=== PATIENT | male | born 1965 | race Caucasian/White ===

== ENCOUNTER 2024-07-12 20:41 | Emergency (ER) | payer OTHER ==
--- OUTSIDE RECORDS SUMMARY | 2024-07-12 20:52 | XMS REPORT | Continuity of Care Document ---
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 Name Role Phone Yvette Morin MD Primary Care Physician [phone] JORDI BURCH Attending Clinician Unavail able JORDI BURCH Attending Clinician Unavail able MAC RODRÍGUEZ Attending Clinician Unavailable YVETTE MORIN Attending Clinician Unavailable YVETTE MORIN Attending Clinician Unavailable LATRELL SHORT Attending Clinician Unavailable LATRELL SHORT Attending Clinician Unavailable Latrell Porras Attending Clinician [phone] Nurse, [facility] Gu Attending Clinician Mac Post MD Attending Clinician [phone] Yvette Morin MD Attending Clinician [phone] ROMAN KATHLEEN Attending Clinician Unavailable ROMAN KATHLEEN Attending Clinician Unavailable Roman Kathleen MD Attending Clinician [phone] 2, [facility] Attending Clinician Unavailable MARTINA SALINAS Attending Clinician Unavail able Jordi Burch MD Attending Clinician [phone] Olga Rojo MD Attending Clinician SUSIE LOZANO Attending Clinician Unavailable Susie Hernandez Attending Clinician [phone] Olga Rojo MD Attending Clinician Jordi Burch MD Attending Clinician [phone] Juanis Estrada LCSW Attending Clinician [phone] Ritesh LABOY, Jf Romano Attending Clinician [phone] JEFFREY VIDAL Attending Clinician Unavailable Alejo LABOY, Xander Attending Clinician [phone] Lab, Ang - Db Attending Clinician Unavailable Cheyanne Blackwood Attending Clinician [phone] Nurse, Josiah Barth Attending Clinician Unavailable Cristina [facility], Sita Mcfadden Attending Clinician Unava ilable Doctor Unassigned, [place] Attending Clinician U marcia Zhao MD, Karen Vaughn Attending Clinician [phone] Darrick LUGON, Daisy Park Attending Clinician Unavaotilia Leon MD, Pat Attending Clinician [phone] PAT LEON Attending Clinician Unavailable Kameron POWELL, Eden Vargas Attending Clinician Unaomi Arteaga RN, Karina Vargas Attending Clinician Unavailab DEEPALI Toro Attending Clinician Unavailable Louise Cedeno Attending Clinician [phone] Marj LABOY, Salvador Jamison Attending Clinician [phone] Deepail Hightower MD Attending Clinician [phone] Justin GRISSOM, Jonathon Johnson Attending Clinician Unavail able Tad [facility], Marleny Raphael Attending Clinician + [phone] Mariola Escobar MA Attending Clinician Dalia KAREN Pires Attending Clinician Unava ilable ZAIRA AHMADI Attending Clinician Unavailab ZAIRA Medley Attending Clinician Unavailab le 2, [facility] Attending Clinician Unavailable Maite Huerta MA Attending Clinician Unava ilable Pob, [facility] Main Attending Clinician UnavailASHLEE Jara Attending Clinician Unavailable Tyshawn Branch DO Attending Clinician [phone] Jf Huertas MD Attending Clinician [phone] MAC RODRÍGUEZ Admitting Clinician Unavailable SALVADOR RILEY Admitting Clinician Unavailoscar Riley MD, Salvador Jamison Admitting Clinician [phone] YVETTE MORIN Admitting Clinician Unavailable KAREN ZHAO Admitting Clinician Jasper ilbreana Payers Payer Name Policy Type Policy Number Effective Date Expirati on Date Source [facility] DUAL ACCESS OPEN PPO [id number] 2021 00:00:[address] [facility] STAR PLUS [id number] 2023 00:00:00 PEREZ D [facility] [id number] 2021 00:00:00 [place] [id number] 2021 00:00:00 Problems Condition Name Condition Details Condition Category Status Onset Date Resolution Date Last Treatment Date Treating Clinician Comments Source Abscess of left arm Abscess of left arm Disease Active 10-28 00:00: 00 [facility] Obesity (BMI 30-39.9) Obesity (BMI 30-39.9) Disease Active 10-28 00:00: 00 [facility] Moderate persistent asthma Moderate persistent asthma Disease Active 2016-07 00:00: 00 [facility] 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 Active 08-07 00:00: 00 [facility] Mild intermitte nt asthma without complicati on Mild intermitte nt asthma without complicati on Disease Active 08-07 00:00: 00 [facility] Seizure disorder Seizure disorder Disease Active 08-07 00:00: 00 [facility] Mental retardatio n Mental retardatio n Disease Active 08-07 00:00: 00 [facility] 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 08-07 00:00: 00 [facility] Myoclonus Myoclonus Disease Active 10-29 00:00: 00 [facility] Tremor, essential Tremor, essential Disease Active 10-29 00:00: 00 [facility] Cerebral palsy Cerebral palsy Disease Active [facility] Parkinson' s disease Parkinson' s disease Disease Active [facility] Seizures Seizures Disease Active [facility] Other closed fracture of proximal end of left fibula, initial encounter Other closed fracture of proximal end of left fibula, initial encounter Diagnosis Active [facility] Sprain of anterior talofibula r ligament of left ankle, initial encounter Sprain of anterior talofibula r ligament of left ankle, initial encounter Diagnosis Active [facility] Pain in joint of left knee Pain in joint of left knee Diagnosis Active [facility] Allergies, Adverse Reactions, Alerts Allergy Name Allergy Type Status Severity Reaction(s) Onset Date Inactive Date Treating Clinician Comments Source Amoxicil karen Propensi ty to adverse reaction s Active Hives 08-07 00:00: 00 [facility] Seafood/ Fish Propensi ty to adverse reaction s Active Hives 08-07 00:00: 00 [facility] AMOXICIL KAREN DRUG INGREDI [facility] SEAFOOD/ FISH Food Active Hives 08-07 00:00: 00 [facility] Peniclli n Adverse Reaction Active Info Not Available [facility] Social History Social Habit Start Date Stop Date Quantity Comments Source History SDOH Alcohol Std Drinks [facility] History SDOH Alcohol Binge [facility] History SDOH Social Connections Get Together [facility] History SDOH Social Connections Spiritism [facility] History SDOH Social Connections Membership [facility] History SDOH Social Connections Meetings [facility] Alcoholic beverage intake 2024-07-07 00:00:00 2024-07-07 00:00:00 0 /d [facility] History of Social function 2024-02-19 00:00:00 2024-02-19 00:00:00 [facility] Alcohol intake 2023-11-01 00:00:00 2023-11-01 00:00:00 0 /d [facility] Tobacco use and exposure 2023-05-20 00:00:00 2023-05-20 00:00:00 Smokeless tobacco non-user [facility] Exposure to SARS-CoV-2 (event) 2022-11-09 00:00:00 2022-11-19 13:02:00 Not sure [facility] History SDOH Alcohol Frequency 2022-10-29 00:00:00 2022-10-29 00:00:00 1 [facility] History SDOH Social Connections Phone 2022-10-29 00:00:00 2022-10-29 00:00:00 5 [facility] History SDOH Social Connections Living 2022-10-29 00:00:00 2022-10-29 00:00:00 7 [facility] History SDOH Physical Activity DPW 2022-10-29 00:00:00 2022-10-29 00:00:00 0 [facility] History SDOH Physical Activity MPS 2022-10-29 00:00:00 2022-10-29 00:00:00 0 [facility] History SDOH Financial 2022-10-29 00:00:00 2022-10-29 00:00:00 5 [facility] History SDOH Food Worry 2022-10-29 00:00:00 2022-10-29 00:00:00 1 [facility] History SDOH Food Scarcity 2022-10-29 00:00:00 2022-10-29 00:00:00 1 [facility] History SDOH Transport Med 2022-10-29 00:00:00 2022-10-29 00:00:00 2 [facility] History SDOH Transport Non-Med 2022-10-29 00:00:00 2022-10-29 00:00:00 2 [facility] History SDOH Housing Unable to Pay 2022-10-29 00:00:00 2022-10-29 00:00:00 2 [facility] History SDOH Housing Places Lived 2022-10-29 00:00:00 2022-10-29 00:00:00 1 [facility] History SDOH Housing Homeless Last Year 2022-10-29 00:00:00 2022-10-29 00:00:00 2 [facility] Sex assigned at 1965 00:00:00 1965 00:00:00 [facility] Smoking Status Start Date Stop Date Source Never smoked tobacco [facility] Medications Ordered Medication Name Filled Medication Name Start Date Stop Date Current Medication? Ordering Clinician Indication Dosage Frequency Signature (SIG) Comments Components Source gadobenate dimeglumine (MULTIHANCE -15 mL) injection 0.2 mL/kg 2023-07 21:45: 00 06-25 21:37 :00 No [id number] .2mL/kg 0.2 mL/kg, Intravenou s, ONCE, 1 dose, On Ashleigh 06/25/24 at 1545, Routine [facility] NITROFURANT OIN&NIT. MACROCRYST 100 mg capsule 2023-07 00:00: 00 Yes [id number] TAKE 1 CAPSULE BY MOUTH IN THE MORNING AND EVENING. DO THIS FOR 7 DAYS [facility] METRONIDAZO LE 0.75 % cream 2023-07 00:00: 00 Yes [id number] APPLY EXTERNALLY TO THE AFFECTED AREA EVERY MORNING [facility] NITROFURANT OIN&NIT. MACROCRYST 100 mg capsule 2023-07 00:00: 00 06-22 00:00 :00 No [id number] TAKE 1 CAPSULE BY MOUTH IN THE MORNING AND EVENING. DO THIS FOR 7 DAYS [facility] Nitrofurant oin&Nit. Macrocryst (MACROBID) 100 mg capsule 2023-07 00:00: 00 06-10 05:59 :00 Yes [id number] 100mg Take 1 capsule by mouth in the morning and 1 capsule in the evening. Do all this for 7 days. [facility] cephALEXin (KEFLEX) capsule 500 mg 2023-07 01:15: 00 06-01 01:10 :00 No 500mg 500 mg, Oral, ONCE, 1 dose, On 05/31/24 at 1915, AUDREY, Reason for Anti-Infec tive: Documented Infection, Documented Infection Site: Urine, Duration of Therapy: Once (ED) [facility] cefpodoxime 200 mg tablet 2023-07 00:00: 00 Yes [id number] 200mg Take 1 tablet by mouth in the morning and 1 tablet in the evening. [facility] ketoconazol e 2 % cream 2023-07 00:00: 00 Yes [id number] APPLY TOPICALLY TO THE AFFECTED AREA(S) EVERY DAY [facility] metroNIDAZO LE 0.75 % cream 2023-07 00:00: 00 06-17 00:00 :00 No [id number] APPLY EXTERNALLY TO THE AFFECTED AREA EVERY MORNING [facility] NYSTATIN 100,000 unit/gram cream 2023-07 00:00: 00 Yes [id number] APPLY TO THE AFFECTED AREA(S) TWICE DAILY [facility] traMADoL 50 mg tablet 2023-07 00:00: 00 Yes [id number] 50mg Take 1 tablet by mouth every 6 (six) hours as needed for Pain (scale 4-6). Indication s: chronic pain [facility] traMADoL 50 mg tablet 2023-07 00:00: 00 04-27 00:00 :00 No [id number] 50mg Take 1 tablet by mouth every 6 (six) hours as needed for Pain (scale 4-6). Indication s: chronic pain [facility] levETIRAcet am 750 mg tablet 03-30 00:00: 00 Yes [id number] TAKE 1 TABLET BY MOUTH EVERY MORNING AND 1 TABLET BY MOUTH EVERY EVENING [facility] carbidopa-l evodopa 50-200 mg SR tablet 03-18 00:00: 00 Yes [id number] TAKE 1 TABLET BY MOUTH IN THE MORNING AND 2 TABLETS IN THE EVENING. [facility] ibuprofen 800 mg tablet 03-13 00:00: 00 Yes [id number] TAKE 1 TABLET BY MOUTH EVERY 6 HOURS NEEDED FOR SEVERE PAIN [facility] albuterol 90 mcg/actuati on inhaler 03-13 00:00: 00 Yes [id number] 2{puff} Inhale 2 Puffs every 6 (six) hours as needed for Shortness of Breath or Wheezing. [facility] albuterol 2.5 mg /3 mL (0.083 %) nebulizer solution 02-27 00:00: 00 Yes [id number] USE 1 AMPULE VIA NEBULIZER EVERY 6 HOURS NEEDED FOR WHEEZING/ SHORTNESS OF BREATH [facility] NITROFURANT OIN&NIT. MACROCRYST 100 mg capsule 02-27 00:00: 00 03-11 00:00 :00 No [id number] TAKE 1 CAPSULE BY MOUTH EVERY MORNING AND EVERY EVENING [facility] Nitrofurant oin&Nit. Macrocryst (MACROBID) 100 mg capsule 02-17 00:00: 00 02-27 00:00 :00 No [id number] 100mg Take 1 capsule by mouth in the morning and 1 capsule in the evening. [facility] traMADoL 50 mg tablet 02-05 00:00: 00 03-13 00:00 :00 No [id number] 50mg Take 1 tablet by mouth every 6 (six) hours as needed for Pain (scale 4-6). Indication s: chronic pain [facility] ibuprofen 800 mg tablet 02-03 00:00: 00 03-13 00:00 :00 No [id number] TAKE 1 TABLET BY MOUTH EVERY 6 HOURS NEEDED FOR SEVERE PAIN [facility] NYSTATIN 100,000 unit/gram cream 01-19 00:00: 00 04-29 00:00 :00 No [id number] APPLY TO THE AFFECTED AREA(S) TWICE DAILY [facility] ketoconazol e 2 % cream 01-16 00:00: 00 05-19 00:00 :00 No [id number] Apply to area(s) daily. [facility] ketoconazol e 2 % shampoo 01-09 00:00: 00 Yes [id number] APPLY TO THE AFFECTED AREA 2-3 TIMES PER WEEK NEEDED FOR ITCHING. WASH OFF WITH WATER AFTER 5 MINUTES [facility] albuterol 90 mcg/actuati on inhaler 01-09 00:00: 00 03-13 00:00 :00 No [id number] 2{puff} Inhale 2 Puffs every 6 (six) hours as needed for Shortness of Breath or Wheezing. [facility] ibuprofen 800 mg tablet 01-09 00:00: 00 02-03 00:00 :00 No [id number] TAKE 1 TABLET BY MOUTH EVERY 8 HOURS NEEDED FOR PAIN [facility] metroNIDAZO LE 1 % GlwP 01-09 00:00: 00 01-16 00:00 :00 No [id number] 1{appli cation} Apply 1 Applicatio n to area(s) in the morning. [facility] ibuprofen 800 mg tablet 01-01 00:00: 00 01-09 00:00 :00 No [id number] TAKE 1 TABLET BY MOUTH EVERY 6 HOURS NEEDED FOR PAIN [facility] carbidopa-l evodopa 50-200 mg SR tablet 12-22 00:00: 00 02-17 00:00 :00 No [id number] TAKE 1 TABLET BY MOUTH EVERY MORNING AND 2 TABLETS BY MOUTH EVERY EVENING [facility] DULoxetine 60 mg capsule 12-12 00:00: 00 Yes [id number] 60mg Take 1 capsule by mouth in the morning. [facility] montelukast 10 mg tablet 12-12 00:00: 00 Yes [id number] 10mg Take 1 tablet by mouth at bedtime. [facility] albuterol 2.5 mg /3 mL (0.083 %) nebulizer solution 12-12 00:00: 00 02-27 00:00 :00 No [id number] 2.5mg Inhale 3 mL every 6 (six) hours as needed for Wheezing or Shortness of Breath. [facility] traMADoL 50 mg tablet 12-08 00:00: 00 01-09 00:00 :00 No [id number] 50mg Take 1 tablet by mouth every 6 (six) hours as needed for Pain (scale 4-6). Indication s: chronic pain [facility] ALBUTEROL 90 mcg/actuati on inhaler 12-01 00:00: 00 01-09 00:00 :00 No [id number] 2{puff} INHALE 2 PUFFS BY MOUTH EVERY 6 HOURS NEEDED FOR SHORTNESS OF BREATH OR WHEEZING [facility] NYSTATIN 100,000 unit/gram cream 11-19 00:00: 01-19 00:00 :00 No [id number] APPLY TO THE AFFECTED AREA TWICE DAILY [facility] albuterol 2.5 mg /3 mL (0.083 %) nebulizer solution 11-17 00:00: 12-12 00:00 :00 No [id number] 2.5mg Inhale 3 mL every 6 (six) hours as needed for Wheezing or Shortness of Breath. [facility] ketoconazol e 2 % shampoo 11-10 00:00: 01-09 00:00 :00 No [id number] APPLY TO THE AFFECTED AREA 2-3 TIMES PER WEEK NEEDED FOR ITCHING. WASH OFF WITH WATER AFTER 5 MINUTES [facility] Nitrofurant oin&Nit. Macrocryst (MACROBID) 100 mg capsule 11-04 00:00: 00 01-09 00:00 :00 No [id number] 100mg Take 1 capsule by mouth in the morning and 1 capsule in the evening. [facility] carbidopa-l evodopa 50-200 mg SR tablet 10-31 00:00: 00 12-22 00:00 :00 No [id number] TAKE 1 TABLET BY MOUTH IN THE MORNING AND 2 TABLETS IN THE EVENING. [facility] sulfamethox azole-trime thoprim (BACTRIM DS) 800-160 mg per tablet 10-31 00:00: 00 11-04 00:00 :00 No [id number] 1{tbl} Take 1 tablet by mouth in the morning and 1 tablet in the evening. [facility] KETOCONAZOL E 2 % shampoo 10-30 00:00: 00 11-10 00:00 :00 No [id number] APPLY TO THE AFFECTED AREA ONCE DAILY NEEDED FOR ITCHING. WASH OFF WITH WATER AFTER 5 MINUTES. [facility] Walker Misc 10-14 00:00: 00 10-31 00:00 :00 No [id number] Use as directed [facility] ketoconazol e 2 % shampoo 10-12 00:00: 00 10-30 00:00 :00 No [id number] APPLY TO THE AFFECTED AREA ONCE DAILY NEEDED FOR ITCHING. WASH OFF WITH WATER AFTER 5 MINUTES [facility] albuterol 90 mcg/actuati on inhaler 10-01 00:00: 00 Yes [id number] 2{puff} Inhale 2 Puffs every 6 (six) hours as needed for Wheezing or Shortness of Breath. [facility] fluticasone propionate 50 mcg/actuati on nasal spray 10-01 00:00: 00 Yes [id number] 2{spray } Use 2 Sprays in each nostril in the morning. [facility] hydrocortis one 2.5 % cream 10-01 00:00: 00 Yes [id number] Apply to affected area(s) 2 (two) times daily. [facility] loratadine 10 mg tablet 10-01 00:00: 00 Yes [id number] 10mg Take 1 tablet by mouth every morning. [facility] ibuprofen 800 mg tablet 10-01 00:00: 00 01-01 00:00 :00 No [id number] TAKE 1 TABLET BY MOUTH EVERY 6 HOURS NEEDED FOR SEVERE PAIN. [facility] montelukast 10 mg tablet 10-01 00:00: 00 12-12 00:00 :00 No [id number] 10mg Take 1 tablet by mouth at bedtime. [facility] DULoxetine 60 mg capsule 10-01 00:00: 00 12-12 00:00 :00 No [id number] 60mg Take 1 capsule by mouth in the morning. [facility] nystatin 100,000 unit/gram cream 10-01 00:00: 00 11-19 00:00 :00 No [id number] Apply to affected area(s) 2 (two) times daily. [facility] albuterol 2.5 mg /3 mL (0.083 %) nebulizer solution 10-01 00:00: 00 11-17 00:00 :00 No [id number] 2.5mg Inhale 3 mL every 6 (six) hours as needed for Wheezing or Shortness of Breath. [facility] carbidopa-l evodopa 50-200 mg SR tablet 09-29 00:00: 00 10-31 00:00 :00 No [id number] TAKE 1 TABLET BY MOUTH IN THE MORNING AND 2 TABLETS IN THE EVENING. [facility] levETIRAcet am 750 mg tablet 09-25 00:00: 00 Yes [id number] 750mg Take 1 tablet by mouth every morning and evening. [facility] ketoconazol e 2 % shampoo 09-24 00:00: 00 10-12 00:00 :00 No [id number] APPLY TO AFFECTED AREA EVERY DAY NEEDED FOR ITCHING [facility] traMADoL 50 mg tablet 3 00:00: 00 12-08 00:00 :00 No [id number] 50mg Take 1 tablet by mouth in the morning and 1 tablet at noon and 1 tablet in the evening. Indication s: chronic pain [facility] nystatin 100,000 unit/gram cream 311 00:00: 00 09-26 00:00 :00 No [id number] APPLY TO AFFECTED AREA TWICE A DAY [facility] ketoconazol e 2 % shampoo 2- 00:00: 00 09-24 00:00 :00 No [id number] APPLY TO THE AFFECTED AREA(S) DAILY NEEDED FOR ITCHING` [facility] carbidopa-l evodopa 50-200 mg SR tablet 2-06 00:00: 00 09-29 00:00 :00 No [id number] TAKE 1 TABLET BY MOUTH EVERY MORNING AND 2 TABLETS EVERY EVENING [facility] loratadine 10 mg tablet 07-24 00:00: 00 09-26 00:00 :00 No [id number] 10mg TAKE 1 TABLET BY MOUTH EVERY MORNING [facility] traMADoL 50 mg tablet 07-15 00:00: 00 09-14 00:00 :00 No [id number] 50mg Take 1 tablet by mouth in the morning and 1 tablet at noon and 1 tablet in the evening. Indication s: chronic pain [facility] ketoconazol e 2 % shampoo 07-09 00:00: 00 08-14 00:00 :00 No [id number] APPLY TO ARE ONCE DAILY NEEDED FOR ITCHING [facility] KETOCONAZOL E 2 % shampoo 2022-07 00:00: 00 Yes [id number] APPLY TO AREA ONCE DAILY NEEDED FOR ITCHING [facility] carbidopa-l evodopa 50-200 mg SR tablet 2022-07 00:00: 00 08-13 00:00 :00 No [id number] TAKE 1 TABLET BY MOUTH EVERY MORNING AND 2 TABLETS IN THE EVENING. [facility] traMADoL 50 mg tablet 2022-07 00:00: 00 07-13 00:00 :00 No [id number] 50mg Take 1 tablet by mouth every 8 (eight) hours as needed (chronic left leg pain). Indication s: chronic pain [facility] ketoconazol e 2 % shampoo 2022-07 00:00: 00 05-27 00:00 :00 No [id number] APPLY TO AREA ONCE DAILY NEEDED FOR ITCHING [facility] KETOCONAZOL E 2 % shampoo 02-15 00:00: 00 05-13 00:00 :00 No [id number] APPLY TO AREA ONCE DAILY NEEDED FOR ITCHING [facility] ibuprofen 800 mg tablet 17 00:00: 00 09-26 00:00 :00 No [id number] TAKE 1 TABLET BY MOUTH EVERY 6 HOURS NEEDED FOR SEVERE PAIN. [facility] montelukast 10 mg tablet 01-21 00:00: 00 09-26 00:00 :00 No [id number] 10mg Take 1 tablet by mouth at bedtime. [facility] DULoxetine 60 mg capsule 01-21 00:00: 00 09-26 00:00 :00 No [id number] 60mg Take 1 capsule by mouth in the morning. [facility] albuterol 2.5 mg /3 mL (0.083 %) nebulizer solution 01-21 00:00: 00 09-26 00:00 :00 No [id number] 2.5mg Inhale 3 mL every 6 (six) hours as needed for Wheezing or Shortness of Breath. [facility] albuterol 90 mcg/actuati on inhaler 01-21 00:00: 00 09-26 00:00 :00 No [id number] 2{puff} Inhale 2 Puffs every 6 (six) hours as needed for Wheezing or Shortness of Breath. [facility] fluticasone propionate 50 mcg/actuati on nasal spray 01-21 00:00: 00 09-26 00:00 :00 No [id number] 2{spray } Use 2 Sprays in each nostril in the morning. [facility] hydrocortis one 2.5 % cream 01-21 00:00: 00 09-26 00:00 :00 No [id number] Apply to affected area(s) 2 (two) times daily. [facility] nystatin 100,000 unit/gram cream 01-21 00:00: 00 09-15 00:00 :00 No [id number] Apply to area(s) 2 (two) times daily. [facility] ketoconazol e 2 % shampoo 01-18 00:00: 00 02-15 00:00 :00 No [id number] Apply to area(s) once daily as needed for Itching. [facility] traMADoL 50 mg tablet 01-07 00:00: 05-13 00:00 :00 No [id number] 50mg Take 1 tablet by mouth every 8 (eight) hours as needed (chronic left leg pain). Indication s: chronic pain [facility] KETOCONAZOL E 2 % shampoo 12-25 00:00: 00 Yes [id number] APPLY TO AREA ONCE DAILY NEEDED FOR ITCHING [facility] Walker Misc 11-19 00:00: 00 Yes [id number] Use as directed [facility] Walker [facility] 11-19 00:00: 00 10-10 00:00 :00 No [id number] Use as directed [facility] ketoconazol e 2 % shampoo 11-19 00:00: 00 12-25 00:00 :00 No [id number] Apply to area(s) once daily as needed for Itching. [facility] carbidopa-l evodopa 50-200 mg SR tablet 11-01 00:00: 00 05-13 00:00 :00 No [id number] Take 1 tablet by mouth in the morning and 2 tablets in the evening. [facility] HYDROcodone -acetaminop hen 5-325 mg tablet 10-30 00:00: 00 12-12 00:00 :00 No [id number] 1{tbl} Take 1 tablet by mouth every 6 (six) hours as needed for Pain (scale 7-10). Indication s: acute pain [facility] clindamycin 300 mg capsule 10-30 00:00: 00 11-10 04:59 :00 No [id number] 600mg Take 2 capsules by mouth in the morning and 2 capsules in the evening. Do all this for 10 days. [facility] lactulose (CEPHULAC) solution 30 mL 10-29 16:30: 00 10-29 16:54 :00 No 30mL 30 mL, Oral, ONCE, 1 dose, On Sat10/29/22 at 1130, Routine [facility] levETIRAcet am (KEPPRA) tablet 750 mg 10-29 14:00: 00 Yes 750mg 750 mg, Oral, QAM+PM, First dose (after last modificati on) on Sat10/29/22 at 0900, Until Discontinu ed, Routine [facility] montelukast (SINGULAIR) tablet 10 mg 10-29 02:00: 00 Yes 10mg 10 mg, Oral, QHS, First dose on 10/28/22 at 2100, Until Discontinu ed, Routine [facility] enoxaparin (LOVENOX) injection 40 mg 10-29 01:00: 00 Yes 40mg 40 mg, Subcutaneo us, DAILY, First dose on Sat10/28/22 at 2000, Until Discontinu ed, [facility]ine [facility] lidocaine 1% (XYLOCAINE) 10 mg/mL (1 %) injection 10 mL 10-28 18:45: 00 10-28 19:19 :00 No 10mL 10 mL, Infiltrati on, ONCE, 1 dose, On 10/28/22 at 1345, AUDREY [facility] loratadine (CLARITIN) tablet 10 mg 10-28 14:00: 00 Yes 10mg 10 mg, Oral, DAILY, First dose on 10/28/22 at 0900, Until Discontinu ed, Routine [facility] fluticasone propionate 50 mcg/actuati on nasal spray 2 [place] 10-28 14:00: 00 Yes 2{spray } 2 [place], Nasal, DAILY, First dose on 10/28/22 at 0900, Until Discontinu ed, Routine [facility] DULoxetine (CYMBALTA) capsule 60 mg 10-28 14:00: 00 Yes 60mg 60 mg, Oral, DAILY, First dose on 10/28/22 at 0900, Until Discontinu ed, Routine [facility] docusate (COLACE) capsule 100 mg 10-28 14:00: 00 Yes 100mg 100 mg, Oral, DAILY, First dose on 10/28/22 at 0900, Until Discontinu ed, Routine [facility] nystatin (MYCOSTATIN ) cream 10-28 13:00: 00 Yes Topical, BID, First dose on 10/28/22 at 0800, Until Discontinu ed, Routine [facility] hydrocortis one 2.5 % cream 10-28 13:00: 00 Yes Topical (Apply To Affected Areas), BID, First dose on 10/28/22 at 0800, Until Discontinu ed, Routine [facility] carbidopa-l evodopa (SINEMET-25 /100) 25-100 mg tablet 1 tablet 10-28 13:00: 00 Yes 1{tbl} 1 tablet, Oral, TID, First dose on 10/28/22 at 0800, Until Discontinu ed [facility] levETIRAcet am (KEPPRA) in NACL (ISO-OS) 1,000 mg/100 mL RTU 10-28 13:00: 00 10-29 01:39 :00 No 1000mg 1,000 mg, IV Piggyback, Q12H, 2 doses, First dose on 10/28/22 at 0800, Last dose on Sat10/28/22 at 2000, Administer over 15 Minutes, 100 mL [facility] vancomycin 1,250 mg in NaCl 0.9% (NS) 250 mL VIAL-MATE IV piggyback 10-28 06:30: 00 11-04 06:29 :00 No 15mg/kg 1,250 mg (rounded from 1,258.5 mg = 15 mg/kg ?83.9 kg), IV Piggyback, Q12H ABX, 14 doses, First dose on 10/28/22 at 0130, Last dose on 11/03/22 at 1330, Administer over 90 Minutes, 250 mL
R sandy for Anti-Infec tive: Documented Infection< br>Documen trace Infection Site: Skin / Soft Tissue
Duration of Therapy: 7 days [facility] traMADoL (ULTRAM) tablet 50 mg 10-28 06:19: 38 Yes [id number] 50mg 50 mg, Oral, Q8HPRN, Starting on Sat10/28/22 at 0119, Until Discontinu ed, Routine, chronic left leg pain [facility] albuterol (VENTOLIN) inhaler 2 Puff 10-28 06:18: 22 Yes 2{puff} 2 Puff, Inhalation , Q6HPRN, Starting on Sat10/28/22 at 0118, Until Discontinu ed, Shortness of Breath, Wheezing, Bronchospa sm, Chest tightness [facility] levoFLOXaci n in D5W (LEVAQUIN) 750 mg/150 mL Piggyback 750 mg 10-28 06:15: 00 11-04 01:59 :00 No 750mg 750 mg, IV Piggyback, at 100 mL/hr Administer over 90 Minutes, QHS, 7 doses, First dose on Sat10/28/22 at 0115, Last dose on Sat11/02/22 at 2100, AUDREY
Re ason for Anti-Infec tive: Documented Infection< br>Documen trace Infection Site: Skin / Soft Tissue
Duration of Therapy: 7 days [facility] NaCl 0.9% (NS) IV infusion 1,000 mL 10-28 06:00: 00 10-29 18:21 :52 No 1000mL at 100 mL/hr, IV Infusion, CONTINUOUS , Starting on Sat10/28/22 at 0100, Until Sat10/29/22 at 1321, Routine [facility] ondansetron (ZOFRAN (PF)) injection 4 mg 10-28 05:52: 06 Yes 4mg 4 mg, Slow IV Push, Q6HPRN, Starting on Sat10/28/22 at 0052, Until Discontinu ed, Routine, Nausea and Vomiting (N/V) [facility] HYDROcodone -acetaminop hen (NORCO 5) 5-325 mg tablet 1 tablet 10-28 05:52: 01 10-30 05:51 :01 No 1{tbl} 1 tablet, Oral, Q6HPRN, Starting on Sat10/28/22 at 0052, Until Sat10/30/22 at 0051, Routine, Pain (scale 4-6) [facility] acetaminoph en (TYLENOL) tablet 650 mg 10-28 05:51: 58 Yes 650mg 650 mg, Oral, Q6HPRN, Starting on 10/28/22 at 0051, Until Discontinu ed, Routine, Pain (scale 1-3) [facility] iopamidol (ISOVUE 370-500 mL) injection 100 mL 10-28 05:30: 00 10-28 05:30 :00 No [id number] 100mL 100 mL, Intravenou s, ONCE, 1 dose, On [place] 10/28/22 at 0030, Routine [facility] cefTRIAXone (ROCEPHIN) 1,000 mg in NaCl 0.9% (NS) 100 mL MINI-BAG 10-28 04:00: 00 10-28 04:32 :00 No 1000mg 1,000 mg, IV Piggyback, ONCE, 1 dose, On 10/27/22 at 2300, Administer over 30 Minutes, 100 mL
Reas on for Anti-Infec tive: Documented Infection< br>Documen trace Infection Site: Skin / Soft Tissue
Duration of Therapy: Other (see Comments) [facility] ondansetron (ZOFRAN (PF)) injection 4 mg 10-28 03:45: 00 10-28 04:02 :00 No 4mg 4 mg, Slow IV Push, ONCE, 1 dose, On [facility] 10/27/22 at 2245, AUDREY [facility] morpHINE (4 mg/mL) injection 4 mg 10-28 03:45: 00 10-28 04:00 :00 No 4mg 4 mg, Slow IV Push, ONCE, 1 dose, On [facility] 10/27/22 at 2245, STAT [facility] LEVETIRACET AM 750 mg tablet 3- 00:00: 00 09-25 00:00 :00 No [id number] TAKE 1 TABLET BY MOUTH IN THE MORNING AND IN THE EVENING [facility] CARBIDOPA-L EVODOPA 50-200 mg SR tablet 3- 00:00: 00 10-31 00:00 :00 No [id number] TAKE 1 TABLET BY MOUTH IN THE MORNING AND 2 TABLETS IN THE EVENING [facility] KETOCONAZOL E 2 % shampoo 2-14 00:00: 00 11-19 00:00 :00 No [id number] APPLY TO AREA(S) ONCE DAILY NEEDED FOR ITCHING. [facility] loratadine 10 mg tablet 1-13 00:00: 00 07-24 00:00 :00 No [id number] 10mg Take 1 tablet by mouth in the morning. [facility] levETIRAcet am 750 mg tablet 2021-07- 00:00: 00 09-05 00:00 :00 No [id number] 750mg Take 1 tablet by mouth in the morning and 1 tablet in the evening. [facility] carbidopa-l evodopa 50-200 mg SR tablet 2021-07- 00:00: 00 09-05 00:00 :00 No [id number] Take 1 tablet by mouth in the morning and 2 tablets in the evening. [facility] traMADoL 50 mg tablet 2021-07- 00:00: 00 11-19 00:00 :00 No [id number] 50mg Take 1 tablet by mouth every 8 (eight) hours as needed (chronic left leg pain). Indication s: chronic pain [facility] DULoxetine 60 mg capsule 2021-07- 00:00: 00 01-21 00:00 :00 No [id number] 60mg Take 1 capsule by mouth in the morning. [facility] ketoconazol e 2 % shampoo 2021-07 0-14 00:00: 00 08-21 00:00 :00 No [id number] Apply to area(s) once daily as needed for Itching. [facility] traMADoL 50 mg tablet 2021-07 0-14 00:00: 00 06-21 00:00 :00 No [id number] 50mg Take 1 tablet by mouth every 8 (eight) hours as needed (chronic left leg pain). Indication s: chronic pain [facility] carbidopa-l evodopa 50-200 mg SR tablet 2021-07 0-05 00:00: 00 06-22 00:00 :00 No [id number] Take 1 tablet by mouth in the morning and 2 tablets in the evening. [facility] carbidopa-l evodopa 50-200 mg SR tablet 8 00:00: 00 Yes [id number] Take 1 tablet by mouth in the morning and 2 tablets in the evening. [facility] levETIRAcet am 750 mg tablet 02-12 00:00: 00 06-22 00:00 :00 No [id number] 750mg Take 1 tablet by mouth in the morning and 1 tablet in the evening. [facility] ibuprofen 800 mg tablet 01-15 00:00: 00 01-21 00:00 :00 No [id number] TAKE 1 TABLET BY MOUTH EVERY 6 HOURS NEEDED FOR SEVERE PAIN. [facility] montelukast 10 mg tablet 01-15 00:00: 00 01-21 00:00 :00 No [id number] 10mg Take 1 tablet by mouth at bedtime. [facility] albuterol 2.5 mg /3 mL (0.083 %) nebulizer solution 01-15 00:00: 00 01-21 00:00 :00 No [id number] 2.5mg Inhale 3 mL every 6 (six) hours as needed for Wheezing or Shortness of Breath. [facility] albuterol 90 mcg/actuati on inhaler 01-15 00:00: 00 01-21 00:00 :00 No [id number] 2{puff} Inhale 2 Puffs every 6 (six) hours as needed for Wheezing or Shortness of Breath. [facility] fluticasone propionate 50 mcg/actuati on nasal spray 01-15 00:00: 00 01-21 00:00 :00 No [id number] 2{spray } Use 2 Sprays in each nostril in the morning. [facility] hydrocortis one 2.5 % cream 01-15 00:00: 00 01-21 00:00 :00 No [id number] Apply to affected area(s) 2 (two) times daily. [facility] nystatin 100,000 unit/gram cream 01-15 00:00: 00 01-21 00:00 :00 No Apply to area(s) 2 (two) times daily. [facility] loratadine 10 mg tablet 01-15 00:00: 00 07-20 00:00 :00 No [id number] 10mg Take 1 tablet by mouth in the morning. [facility] DULoxetine 60 mg capsule 01-15 00:00: 00 05-09 00:00 :00 No [id number] 60mg Take 1 capsule by mouth in the morning. [facility] traMADoL 50 mg tablet 01-15 00:00: 00 04-20 00:00 :00 No [id number] 50mg Take 1 tablet by mouth every 8 (eight) hours as needed (chronic left leg pain). Indication s: chronic pain [facility] ketoconazol e 2 % shampoo 01-15 00:00: 00 04-20 00:00 :00 No [id number] Apply to area(s) once daily as needed for Itching. [facility] carbidopa-l evodopa 50-200 mg SR tablet 07-19 00:00: 00 02-12 00:00 :00 No [id number] Take 1 tablet by mouth in the morning and 2 tablets in the evening. [facility] levETIRAcet am 500 mg tablet 2020-07 00:00: 00 02-12 00:00 :00 No [id number] 500mg Take 1 tablet by mouth 2 (two) times daily. [facility] IBUPROFEN 800 mg tablet 2020-07 00:00: 01-15 00:00 :00 No [id number] TAKE 1 TABLET BY MOUTH EVERY 6 HOURS NEEDED FOR SEVERE PAIN. [facility] traMADoL 50 mg tablet 8-17 00:00: 00 05-29 00:00 :00 No [id number] 50mg Take 1 tablet by mouth every 8 (eight) hours as needed (chronic left leg pain). Indication s: chronic pain [facility] HYDROCORTIS ONE 2.5 % cream 6-04 00:00: 00 11-24 00:00 :00 No [id number] APPLY TO THE AFFECTED AREA TWICE DAILY [facility] montelukast 10 mg tablet 11-28 00:00: 00 11-23 00:00 :00 No [id number] 10mg Take 1 tablet by mouth at bedtime. [facility] ALBUTEROL 90 mcg/actuati on inhaler 4-09 00:00: 00 01-15 00:00 :00 No [id number] INHALE 2 PUFFS BY MOUTH EVERY 6 HOURS NEEDED FOR WHEEZING OR SHORTNESS OF BREATH [facility] fluticasone propionate 50 mcg/actuati on nasal spray 08-26 00:00: 00 11-28 00:00 :00 No [id number] 2{spray } Use 2 Sprays in each nostril daily. [facility] levETIRAcet am 500 mg tablet 2019-07 00:00: 06-20 00:00 :00 No [id number] 500mg Take 1 tablet by mouth 2 (two) times daily. [facility] carbidopa-l evodopa 50-200 mg SR tablet 2019-07 00:00: 00 06-20 00:00 :00 No [id number] 1{tbl} Take 1 tablet by mouth 2 (two) times daily. [facility] Ibuprofen Ibuprofen 3- 00:00: 00 Yes Pranay Love 1 tablet po prn pain [facility] albuterol 2.5 mg /3 mL (0.083 %) nebulizer solution 2017-07 2-05 00:00: 00 05-20 00:00 :00 No [id number] 2.5mg Inhale 3 mL every 6 (six) hours as needed for Wheezing or Shortness of Breath. [facility] Albuterol Sulfate Albuterol Sulfate Yes Pranay Love not defined [facility] Montelukast Sodium Montelukast Sodium Yes Pranay Love TK 1 T PO QHS [facility] Fluticasone Propionate Fluticasone Propionate Yes Pranay Love USE 2 SPRAYS IN EACH NOSTRIL QD [facility] Levetiracet am Levetiracet am Yes Pranay Love TK 1 T PO BID [facility] Carbidopa-L evodopa ER Carbidopa-L evodopa ER Yes Pranay Love TK 1 T PO QAM AND 2 TS PO QPM [facility] Ibuprofen Ibuprofen Yes Pranay Love TK 1 T PO Q 6 H PRN FOR PAIN [facility] Hydrocortis one Hydrocortis one Yes Pranay Love APPLY TO THE AFFECTED AREA BID PRN FOR FACIAL RASH [facility] Immunizations Ordered Immunization Name Filled Immunization Name Date Status Comments Source Influenza Virus Vaccine Quad IM, Preserv and ABX Free 6 MO-64 YRS (FLUCELVAX) 2023-05-21 00:00:00 Completed [facility] SARS-COV-2 COVID-19 PFIZER VACCINE 2021-07-26 00:00:00 Completed Zoster Vaccine Recombinant 2021-04-18 00:00:00 Completed [facility] Influenza Virus Vaccine Quad .5 mL IM 6+ MO (FLUZONE/FLULAVAL/F LUARIX) 2021-04-18 00:00:00 Completed SARS-COV-2 COVID-19 PFIZER VACCINE 2020-10-17 00:00:00 Completed [facility] SARS-COV-2 COVID-19 PFIZER VACCINE 2020-10-17 00:00:00 Completed [facility] SARS-COV-2 COVID-19 PFIZER VACCINE 2020-10-17 00:00:00 Completed [facility] SARS-COV-2 COVID-19 PFIZER VACCINE 2020-10-17 00:00:00 Completed [facility] SARS-COV-2 COVID-19 PFIZER VACCINE 2020-10-17 00:00:00 Completed [facility] SARS-COV-2 COVID-19 PFIZER VACCINE 2020-10-17 00:00:00 Completed [facility] SARS-COV-2 COVID-19 PFIZER VACCINE 2020-10-17 00:00:00 Completed [facility] SARS-COV-2 COVID-19 PFIZER VACCINE 2020-10-17 00:00:00 Completed [facility] SARS-COV-2 COVID-19 PFIZER VACCINE 2020-10-17 00:00:00 Completed [facility] SARS-COV-2 COVID-19 PFIZER VACCINE 2020-10-17 00:00:00 Completed [facility] SARS-COV-2 COVID-19 PFIZER VACCINE 2020-10-17 00:00:00 Completed [facility] SARS-COV-2 COVID-19 PFIZER VACCINE 2020-10-17 00:00:00 Completed [facility] SARS-COV-2 COVID-19 PFIZER VACCINE 2020-10-17 00:00:00 Completed [facility] SARS-COV-2 COVID-19 PFIZER VACCINE 2020-10-17 00:00:00 Completed [facility] SARS-COV-2 COVID-19 PFIZER VACCINE 2020-10-17 00:00:00 Completed [facility] SARS-COV-2 COVID-19 PFIZER VACCINE 2020-10-17 00:00:00 Completed [facility] SARS-COV-2 COVID-19 PFIZER VACCINE 2020-10-17 00:00:00 Completed [facility] SARS-COV-2 COVID-19 PFIZER VACCINE 2020-10-17 00:00:00 Completed [facility] SARS-COV-2 COVID-19 PFIZER VACCINE 2020-10-17 00:00:00 Completed [facility] SARS-COV-2 COVID-19 PFIZER VACCINE 2020-10-17 00:00:00 Completed [facility] SARS-COV-2 COVID-19 PFIZER VACCINE 2020-10-17 00:00:00 Completed [facility] SARS-COV-2 COVID-19 PFIZER VACCINE 2020-10-17 00:00:00 Completed [facility] SARS-COV-2 COVID-19 PFIZER VACCINE 2020-10-17 00:00:00 Completed [facility] SARS-COV-2 COVID-19 PFIZER VACCINE 2020-10-17 00:00:00 Completed [facility] SARS-COV-2 COVID-19 PFIZER VACCINE 2020-10-17 00:00:00 Completed [facility] SARS-COV-2 COVID-19 PFIZER VACCINE 2020-10-17 00:00:00 Completed [facility] SARS-COV-2 COVID-19 PFIZER VACCINE 2020-10-17 00:00:00 Completed [facility] SARS-COV-2 COVID-19 PFIZER VACCINE 2020-10-17 00:00:00 Completed [facility] SARS-COV-2 COVID-19 PFIZER VACCINE 2020-10-17 00:00:00 Completed [facility] SARS-COV-2 COVID-19 PFIZER VACCINE 2020-10-17 00:00:00 Completed [facility] SARS-COV-2 COVID-19 PFIZER VACCINE 2020-10-17 00:00:00 Completed [facility] SARS-COV-2 COVID-19 PFIZER VACCINE 2020-10-17 00:00:00 Completed [facility] SARS-COV-2 COVID-19 PFIZER VACCINE 2020-10-17 00:00:00 Completed [facility] SARS-COV-2 COVID-19 PFIZER VACCINE 2020-10-17 00:00:00 Completed [facility] SARS-COV-2 COVID-19 PFIZER VACCINE 2020-10-17 00:00:00 Completed [facility] SARS-COV-2 COVID-19 PFIZER VACCINE 2020-10-17 00:00:00 Completed [facility] SARS-COV-2 COVID-19 PFIZER VACCINE 2020-10-17 00:00:00 Completed [facility] SARS-COV-2 COVID-19 PFIZER VACCINE 2020-10-17 00:00:00 Completed [facility] SARS-COV-2 COVID-19 PFIZER VACCINE 2020-10-17 00:00:00 Completed [facility] SARS-COV-2 COVID-19 PFIZER VACCINE 2020-10-17 00:00:00 Completed SARS-COV-2 COVID-19 PFIZER VACCINE 2020-09-26 00:00:00 Completed [facility] SARS-COV-2 COVID-19 PFIZER VACCINE 2020-09-26 00:00:00 Completed [facility] SARS-COV-2 COVID-19 PFIZER VACCINE 2020-09-26 00:00:00 Completed [facility] SARS-COV-2 COVID-19 PFIZER VACCINE 2020-09-26 00:00:00 Completed [facility] SARS-COV-2 COVID-19 PFIZER VACCINE 2020-09-26 00:00:00 Completed [facility] SARS-COV-2 COVID-19 PFIZER VACCINE 2020-09-26 00:00:00 Completed [facility] SARS-COV-2 COVID-19 PFIZER VACCINE 2020-09-26 00:00:00 Completed [facility] SARS-COV-2 COVID-19 PFIZER VACCINE 2020-09-26 00:00:00 Completed [facility] SARS-COV-2 COVID-19 PFIZER VACCINE 2020-09-26 00:00:00 Completed [facility] SARS-COV-2 COVID-19 PFIZER VACCINE 2020-09-26 00:00:00 Completed [facility] SARS-COV-2 COVID-19 PFIZER VACCINE 2020-09-26 00:00:00 Completed [facility] SARS-COV-2 COVID-19 PFIZER VACCINE 2020-09-26 00:00:00 Completed [facility] SARS-COV-2 COVID-19 PFIZER VACCINE 2020-09-26 00:00:00 Completed [facility] SARS-COV-2 COVID-19 PFIZER VACCINE 2020-09-26 00:00:00 Completed [facility] SARS-COV-2 COVID-19 PFIZER VACCINE 2020-09-26 00:00:00 Completed [facility] SARS-COV-2 COVID-19 PFIZER VACCINE 2020-09-26 00:00:00 Completed [facility] SARS-COV-2 COVID-19 PFIZER VACCINE 2020-09-26 00:00:00 Completed [facility] SARS-COV-2 COVID-19 PFIZER VACCINE 2020-09-26 00:00:00 Completed [facility] SARS-COV-2 COVID-19 PFIZER VACCINE 2020-09-26 00:00:00 Completed [facility] SARS-COV-2 COVID-19 PFIZER VACCINE 2020-09-26 00:00:00 Completed [facility] SARS-COV-2 COVID-19 PFIZER VACCINE 2020-09-26 00:00:00 Completed [facility] SARS-COV-2 COVID-19 PFIZER VACCINE 2020-09-26 00:00:00 Completed [facility] SARS-COV-2 COVID-19 PFIZER VACCINE 2020-09-26 00:00:00 Completed [facility] SARS-COV-2 COVID-19 PFIZER VACCINE 2020-09-26 00:00:00 Completed [facility] SARS-COV-2 COVID-19 PFIZER VACCINE 2020-09-26 00:00:00 Completed [facility] SARS-COV-2 COVID-19 PFIZER VACCINE 2020-09-26 00:00:00 Completed [facility] SARS-COV-2 COVID-19 PFIZER VACCINE 2020-09-26 00:00:00 Completed [facility] SARS-COV-2 COVID-19 PFIZER VACCINE 2020-09-26 00:00:00 Completed [facility] SARS-COV-2 COVID-19 PFIZER VACCINE 2020-09-26 00:00:00 Completed [facility] SARS-COV-2 COVID-19 PFIZER VACCINE 2020-09-26 00:00:00 Completed [facility] SARS-COV-2 COVID-19 PFIZER VACCINE 2020-09-26 00:00:00 Completed [facility] SARS-COV-2 COVID-19 PFIZER VACCINE 2020-09-26 00:00:00 Completed [facility] SARS-COV-2 COVID-19 PFIZER VACCINE 2020-09-26 00:00:00 Completed [facility] SARS-COV-2 COVID-19 PFIZER VACCINE 2020-09-26 00:00:00 Completed [facility] SARS-COV-2 COVID-19 PFIZER VACCINE 2020-09-26 00:00:00 Completed [facility] SARS-COV-2 COVID-19 PFIZER VACCINE 2020-09-26 00:00:00 Completed [facility] SARS-COV-2 COVID-19 PFIZER VACCINE 2020-09-26 00:00:00 Completed [facility] SARS-COV-2 COVID-19 PFIZER VACCINE 2020-09-26 00:00:00 Completed [facility] SARS-COV-2 COVID-19 PFIZER VACCINE 2020-09-26 00:00:00 Completed [facility] SARS-COV-2 COVID-19 PFIZER VACCINE 2020-09-26 00:00:00 Completed [facility] Influenza Virus Vaccine Quad .5 mL IM 6+ MO 2020-06-13 00:00:00 Completed [facility] Influenza Virus Vaccine Quad .5 mL IM 6+ MO 2020-06-13 00:00:00 Completed [facility] Influenza Virus Vaccine Quad .5 mL IM 6+ MO 2020-06-13 00:00:00 Completed [facility] Influenza Virus Vaccine Quad .5 mL IM 6+ MO 2020-06-13 00:00:00 Completed [facility] Influenza Virus Vaccine Quad .5 mL IM 6+ MO 2020-06-13 00:00:00 Completed [facility] Influenza Virus Vaccine Quad .5 mL IM 6+ MO 2020-06-13 00:00:00 Completed [facility] Influenza Virus Vaccine Quad .5 mL IM 6+ MO 2020-06-13 00:00:00 Completed [facility] Influenza Virus Vaccine Quad .5 mL IM + MO 2020-06-13 00:00:00 Completed [facility] Influenza Virus Vaccine Quad .5 mL IM 6+ MO 2020-06-13 00:00:00 Completed [facility] Influenza Virus Vaccine Quad .5 mL IM 6+ MO 2020-06-13 00:00:00 Completed [facility] Influenza Virus Vaccine Quad .5 mL IM 6+ MO 2020-06-13 00:00:00 Completed [facility] Influenza Virus Vaccine Quad .5 mL IM 6+ MO 2020-06-13 00:00:00 Completed [facility] Influenza Virus Vaccine Quad .5 mL IM 6+ MO 2020-06-13 00:00:00 Completed [facility] Influenza Virus Vaccine Quad .5 mL IM 6+ MO 2020-06-13 00:00:00 Completed [facility] Influenza Virus Vaccine Quad .5 mL IM 6+ MO 2020-06-13 00:00:00 Completed [facility] Influenza Virus Vaccine Quad .5 mL IM 6+ MO 2020-06-13 00:00:00 [facility] [facility] Influenza Virus Vaccine Quad .5 mL IM 6+ MO 2020-06-13 00:00:00 Completed [facility] Influenza Virus Vaccine Quad .5 mL IM 6+ MO 2020-06-13 00:00:00 Completed [facility] Influenza Virus Vaccine Quad .5 mL IM 6+ MO 2020-06-13 00:00:00 Completed [facility] Influenza Virus Vaccine Quad .5 mL IM + MO 2020-06-13 00:00:00 Completed [facility] Influenza Virus Vaccine Quad .5 mL IM 6+ MO 2020-06-13 00:00:00 Completed [facility] Influenza Virus Vaccine Quad .5 mL IM + MO 2020-06-13 00:00:00 Completed [facility] Influenza Virus Vaccine Quad .5 mL IM 2020-06-13 00:00:00 Completed [facility] Influenza Virus Vaccine Quad .5 mL IM + 2020-06-13 00:00:00 Completed [facility] Influenza Virus Vaccine Quad .5 mL IM 2020-06-13 00:00:00 Completed [facility] Influenza Virus Vaccine Quad .5 mL IM 2020-06-13 00:00:00 Completed [facility] Influenza Virus Vaccine Quad .5 mL IM 2020-06-13 00:00:00 Completed [facility] Influenza Virus Vaccine Quad .5 mL IM 6+ 2020-06-13 00:00:00 Completed [facility] Influenza Virus Vaccine Quad .5 mL IM + 2020-06-13 00:00:00 Completed [facility] Influenza Virus Vaccine Quad .5 mL IM + 2020-06-13 00:00:00 Completed [facility] Influenza Virus Vaccine Quad .5 mL IM 6+ MO 2020-06-13 00:00:00 Completed [facility] Influenza Virus Vaccine Quad .5 mL IM 6+ MO 2020-06-13 00:00:00 Completed [facility] Influenza Virus Vaccine Quad .5 mL IM 6+ MO 2020-06-13 00:00:00 Completed [facility] Influenza Virus Vaccine Quad .5 mL IM 6+ MO 2020-06-13 00:00:00 Completed [facility] Influenza Virus Vaccine Quad .5 mL IM 6+ MO 2020-06-13 00:00:00 Completed [facility] Influenza Virus Vaccine Quad .5 mL IM 6+ MO 2020-06-13 00:00:00 Completed [facility] Influenza Virus Vaccine Quad .5 mL IM 6+ MO 2020-06-13 00:00:00 Completed [facility] Influenza Virus Vaccine Quad .5 mL IM 6+ MO 2020-06-13 00:00:00 Completed [facility] Influenza Virus Vaccine Quad .5 mL IM 6+ MO 2020-06-13 00:00:00 Completed [facility] Influenza Virus Vaccine Quad .5 mL IM 6+ MO (FLUZONE/FLULAVAL/F LUARIX) 2020-06-13 00:00:00 Completed [facility] Influenza Virus Vaccine 2019-06-05 00:00:00 Completed [facility] Influenza Virus Vaccine 2019-06-05 00:00:00 Completed [facility] Influenza Virus Vaccine 2019-06-05 00:00:00 Completed [facility] Influenza Virus Vaccine 2019-06-05 00:00:00 Completed [facility] Influenza Virus Vaccine 2019-06-05 00:00:00 Completed [facility] Influenza Virus Vaccine 2019-06-05 00:00:00 Completed [facility] Influenza Virus Vaccine 2019-06-05 00:00:00 Completed [facility] Influenza Virus Vaccine 2019-06-05 00:00:00 Completed [facility] Influenza Virus Vaccine 2019-06-05 00:00:00 Completed [facility] Influenza Virus Vaccine 2019-06-05 00:00:00 Completed [facility] Influenza Virus Vaccine 2019-06-05 00:00:00 Completed [facility] Influenza Virus Vaccine 2019-06-05 00:00:00 Completed [facility] Influenza Virus Vaccine 2019-06-05 00:00:00 Completed [facility] Influenza Virus Vaccine 2019-06-05 00:00:00 Completed [facility] Influenza Virus Vaccine 2019-06-05 00:00:00 Completed [facility] Influenza Virus Vaccine 2019-06-05 00:00:00 Completed [facility] Influenza Virus Vaccine 2019-06-05 00:00:00 Completed [facility] Influenza Virus Vaccine 2019-06-05 00:00:00 Completed [facility] Influenza Virus Vaccine 2019-06-05 00:00:00 Completed [facility] Influenza Virus Vaccine 2019-06-05 00:00:00 Completed [facility] Influenza Virus Vaccine 2019-06-05 00:00:00 Completed [facility] Influenza Virus Vaccine 2019-06-05 00:00:00 Completed [facility] Influenza Virus Vaccine 2019-06-05 00:00:00 Completed [facility] Influenza Virus Vaccine 2019-06-05 00:00:00 Completed [facility] Influenza Virus Vaccine 2019-06-05 00:00:00 Completed [facility] Influenza Virus Vaccine 2019-06-05 00:00:00 Completed [facility] Influenza Virus Vaccine 2019-06-05 00:00:00 Completed [facility] Influenza Virus Vaccine 2019-06-05 00:00:00 Completed [facility] Influenza Virus Vaccine 2019-06-05 00:00:00 Completed [facility] Influenza Virus Vaccine 2019-06-05 00:00:00 Completed [facility] Influenza Virus Vaccine 2019-06-05 00:00:00 Completed [facility] Influenza Virus Vaccine 2019-06-05 00:00:00 Completed [facility] Influenza Virus Vaccine 2019-06-05 00:00:00 Completed [facility] Influenza Virus Vaccine 2019-06-05 00:00:00 Completed [facility] Influenza Virus Vaccine 2019-06-05 00:00:00 Completed [facility] Influenza Virus Vaccine 2019-06-05 00:00:00 Completed [facility] Influenza Virus Vaccine 2019-06-05 00:00:00 Completed [facility] Influenza Virus Vaccine 2019-06-05 00:00:00 Completed [facility] Influenza Virus Vaccine 2019-06-05 00:00:00 Completed [facility] Influenza Virus Vaccine 2019-06-05 00:00:00 Completed Zoster Vaccine Recombinant 2019-05-28 00:00:00 Completed [facility] Zoster Vaccine Recombinant 2019-05-28 00:00:00 Completed [facility] Zoster Vaccine Recombinant 2019-05-28 00:00:00 Completed [facility] Zoster Vaccine Recombinant 2019-05-28 00:00:00 Completed [facility] Zoster Vaccine Recombinant 2019-05-28 00:00:00 Completed [facility] Zoster Vaccine Recombinant 2019-05-28 00:00:00 Completed [facility] Zoster Vaccine Recombinant 2019-05-28 00:00:00 Completed [facility] Zoster Vaccine Recombinant 2019-05-28 00:00:00 Completed [facility] Zoster Vaccine Recombinant 2019-05-28 00:00:00 Completed [facility] Zoster Vaccine Recombinant 2019-05-28 00:00:00 Completed [facility] Zoster Vaccine Recombinant 2019-05-28 00:00:00 Completed [facility] Zoster Vaccine Recombinant 2019-05-28 00:00:00 Completed [facility] Zoster Vaccine Recombinant 2019-05-28 00:00:00 Completed [facility] Zoster Vaccine Recombinant 2019-05-28 00:00:00 Completed [facility] Zoster Vaccine Recombinant 2019-05-28 00:00:00 Completed [facility] Zoster Vaccine Recombinant 2019-05-28 00:00:00 Completed [facility] Zoster Vaccine Recombinant 2019-05-28 00:00:00 Completed [facility] Zoster Vaccine Recombinant 2019-05-28 00:00:00 Completed [facility] Zoster Vaccine Recombinant 2019-05-28 00:00:00 Completed [facility] Zoster Vaccine Recombinant 2019-05-28 00:00:00 Completed [facility] Zoster Vaccine Recombinant 2019-05-28 00:00:00 Completed [facility] Zoster Vaccine Recombinant 2019-05-28 00:00:00 Completed [facility] Zoster Vaccine Recombinant 2019-05-28 00:00:00 Completed [facility] Zoster Vaccine Recombinant 2019-05-28 00:00:00 Completed [facility] Zoster Vaccine Recombinant 2019-05-28 00:00:00 Completed [facility] Zoster Vaccine Recombinant 2019-05-28 00:00:00 Completed [facility] Zoster Vaccine Recombinant 2019-05-28 00:00:00 Completed [facility] Zoster Vaccine Recombinant 2019-05-28 00:00:00 Completed [facility] Zoster Vaccine Recombinant 2019-05-28 00:00:00 Completed [facility] Zoster Vaccine Recombinant 2019-05-28 00:00:00 Completed [facility] Zoster Vaccine Recombinant 2019-05-28 00:00:00 Completed [facility] Zoster Vaccine Recombinant 2019-05-28 00:00:00 Completed [facility] Zoster Vaccine Recombinant 2019-05-28 00:00:00 Completed [facility] Zoster Vaccine Recombinant 2019-05-28 00:00:00 Completed [facility] Zoster Vaccine Recombinant 2019-05-28 00:00:00 Completed [facility] Zoster Vaccine Recombinant 2019-05-28 00:00:00 Completed [facility] Zoster Vaccine Recombinant 2019-05-28 00:00:00 Completed [facility] Zoster Vaccine Recombinant 2019-05-28 00:00:00 Completed [facility] Zoster Vaccine Recombinant 2019-05-28 00:00:00 Completed [facility] Zoster Vaccine Recombinant 2019-05-28 00:00:00 Completed Zoster Vaccine Recombinant 2019-04-18 00:00:00 Completed [facility] Zoster Vaccine Recombinant 2019-04-18 00:00:00 Completed [facility] Zoster Vaccine Recombinant 2019-04-18 00:00:00 Completed [facility] Zoster Vaccine Recombinant 2019-04-18 00:00:00 Completed [facility] Zoster Vaccine Recombinant 2019-04-18 00:00:00 Completed [facility] Zoster Vaccine Recombinant 2019-04-18 00:00:00 Completed [facility] Zoster Vaccine Recombinant 2019-04-18 00:00:00 Completed [facility] Zoster Vaccine Recombinant 2019-04-18 00:00:00 Completed [facility] Zoster Vaccine Recombinant 2019-04-18 00:00:00 Completed [facility] Zoster Vaccine Recombinant 2019-04-18 00:00:00 Completed [facility] Zoster Vaccine Recombinant 2019-04-18 00:00:00 Completed [facility] Zoster Vaccine Recombinant 2019-04-18 00:00:00 Completed [facility] Zoster Vaccine Recombinant 2019-04-18 00:00:00 Completed [facility] Zoster Vaccine Recombinant 2019-04-18 00:00:00 Completed [facility] Zoster Vaccine Recombinant 2019-04-18 00:00:00 Completed [facility] Zoster Vaccine Recombinant 2019-04-18 00:00:00 Completed [facility] Zoster Vaccine Recombinant 2019-04-18 00:00:00 Completed [facility] Zoster Vaccine Recombinant 2019-04-18 00:00:00 Completed [facility] Zoster Vaccine Recombinant 2019-04-18 00:00:00 Completed [facility] Zoster Vaccine Recombinant 2019-04-18 00:00:00 Completed [facility] Zoster Vaccine Recombinant 2019-04-18 00:00:00 Completed [facility] Zoster Vaccine Recombinant 2019-04-18 00:00:00 Completed [facility] Zoster Vaccine Recombinant 2019-04-18 00:00:00 Completed [facility] Zoster Vaccine Recombinant 2019-04-18 00:00:00 Completed [facility] Zoster Vaccine Recombinant 2019-04-18 00:00:00 Completed [facility] Zoster Vaccine Recombinant 2019-04-18 00:00:00 Completed [facility] Zoster Vaccine Recombinant 2019-04-18 00:00:00 Completed [facility] Zoster Vaccine Recombinant 2019-04-18 00:00:00 Completed [facility] Zoster Vaccine Recombinant 2019-04-18 00:00:00 Completed [facility] Zoster Vaccine Recombinant 2019-04-18 00:00:00 Completed [facility] Zoster Vaccine Recombinant 2019-04-18 00:00:00 Completed [facility] Zoster Vaccine Recombinant 2019-04-18 00:00:00 Completed [facility] Zoster Vaccine Recombinant 2019-04-18 00:00:00 Completed [facility] Zoster Vaccine Recombinant 2019-04-18 00:00:00 Completed [facility] Zoster Vaccine Recombinant 2019-04-18 00:00:00 Completed [facility] Zoster Vaccine Recombinant 2019-04-18 00:00:00 Completed [facility] Zoster Vaccine Recombinant 2019-04-18 00:00:00 Completed [facility] Zoster Vaccine Recombinant 2019-04-18 00:00:00 Completed [facility] Zoster Vaccine Recombinant 2019-04-18 00:00:00 Completed [facility] Zoster Vaccine Recombinant 2019-04-18 00:00:00 Completed Influenza Virus Vaccine 2018-06-02 00:00:00 Completed [facility] Influenza Virus Vaccine 2018-06-02 00:00:00 Completed [facility] Influenza Virus Vaccine 2018-06-02 00:00:00 Completed [facility] Influenza Virus Vaccine 2018-06-02 00:00:00 Completed [facility] Influenza Virus Vaccine 2018-06-02 00:00:00 Completed [facility] Influenza Virus Vaccine 2018-06-02 00:00:00 Completed [facility] Influenza Virus Vaccine 2018-06-02 00:00:00 Completed [facility] Influenza Virus Vaccine 2018-06-02 00:00:00 Completed [facility] Influenza Virus Vaccine 2018-06-02 00:00:00 Completed [facility] Influenza Virus Vaccine 2018-06-02 00:00:00 Completed [facility] Influenza Virus Vaccine 2018-06-02 00:00:00 Completed [facility] Influenza Virus Vaccine 2018-06-02 00:00:00 Completed [facility] Influenza Virus Vaccine 2018-06-02 00:00:00 Completed [facility] Influenza Virus Vaccine 2018-06-02 00:00:00 Completed [facility] Influenza Virus Vaccine 2018-06-02 00:00:00 Completed [facility] Influenza Virus Vaccine 2018-06-02 00:00:00 Completed [facility] Influenza Virus Vaccine 2018-06-02 00:00:00 Completed [facility] Influenza Virus Vaccine 2018-06-02 00:00:00 Completed [facility] Influenza Virus Vaccine 2018-06-02 00:00:00 Completed [facility] Influenza Virus Vaccine 2018-06-02 00:00:00 Completed [facility] Influenza Virus Vaccine 2018-06-02 00:00:00 Completed [facility] Influenza Virus Vaccine 2018-06-02 00:00:00 Completed [facility] Influenza Virus Vaccine 2018-06-02 00:00:00 Completed [facility] Influenza Virus Vaccine 2018-06-02 00:00:00 Completed [facility] Influenza Virus Vaccine 2018-06-02 00:00:00 Completed [facility] Influenza Virus Vaccine 2018-06-02 00:00:00 Completed [facility] Influenza Virus Vaccine 2018-06-02 00:00:00 Completed [facility] Influenza Virus Vaccine 2018-06-02 00:00:00 Completed [facility] Influenza Virus Vaccine 2018-06-02 00:00:00 Completed [facility] Influenza Virus Vaccine 2018-06-02 00:00:00 Completed [facility] Influenza Virus Vaccine 2018-06-02 00:00:00 Completed [facility] Influenza Virus Vaccine 2018-06-02 00:00:00 Completed [facility] Influenza Virus Vaccine 2018-06-02 00:00:00 Completed [facility] Influenza Virus Vaccine 2018-06-02 00:00:00 Completed [facility] Influenza Virus Vaccine 2018-06-02 00:00:00 Completed [facility] Influenza Virus Vaccine 2018-06-02 00:00:00 Completed [facility] Influenza Virus Vaccine 2018-06-02 00:00:00 Completed [facility] Influenza Virus Vaccine 2018-06-02 00:00:00 Completed [facility] Influenza Virus Vaccine 2018-06-02 00:00:00 Completed [facility] Influenza Virus Vaccine 2018-06-02 00:00:00 Completed Influenza Virus Vaccine Quad IM 3+ YRS 2017-05-14 00:00:00 Completed [facility] Influenza Virus Vaccine Quad IM 3+ YRS 2017-05-14 00:00:00 Completed [facility] Influenza Virus Vaccine Quad IM 3+ YRS 2017-05-14 00:00:00 Completed [facility] Influenza Virus Vaccine Quad IM 3+ YRS 2017-05-14 00:00:00 Completed [facility] Influenza Virus Vaccine Quad IM 3+ YRS 2017-05-14 00:00:00 Completed [facility] Influenza Virus Vaccine Quad IM 3+ YRS 2017-05-14 00:00:00 Completed [facility] Influenza Virus Vaccine Quad IM 3+ YRS 2017-05-14 00:00:00 Completed [facility] Influenza Virus Vaccine Quad IM 3+ YRS 2017-05-14 00:00:00 Completed [facility] Influenza Virus Vaccine Quad IM 3+ YRS 2017-05-14 00:00:00 Completed [facility] Influenza Virus Vaccine Quad IM 3+ YRS 2017-05-14 00:00:00 Completed [facility] Influenza Virus Vaccine Quad IM 3+ YRS 2017-05-14 00:00:00 Completed [facility] Influenza Virus Vaccine Quad IM 3+ YRS 2017-05-14 00:00:00 Completed [facility] Influenza Virus Vaccine Quad IM 3+ YRS 2017-05-14 00:00:00 Completed [facility] Influenza Virus Vaccine Quad IM 3+ YRS 2017-05-14 00:00:00 Completed [facility] Influenza Virus Vaccine Quad IM 3+ YRS 2017-05-14 00:00:00 Completed [facility] Influenza Virus Vaccine Quad IM 3+ YRS 2017-05-14 00:00:00 Completed [facility] Influenza Virus Vaccine Quad IM 3+ YRS 2017-05-14 00:00:00 Completed [facility] Influenza Virus Vaccine Quad IM 3+ YRS 2017-05-14 00:00:00 Completed [facility] Influenza Virus Vaccine Quad IM 3+ YRS 2017-05-14 00:00:00 Completed [facility] Influenza Virus Vaccine Quad IM 3+ YRS 2017-05-14 00:00:00 Completed [facility] Influenza Virus Vaccine Quad IM 3+ YRS 2017-05-14 00:00:00 Completed [facility] Influenza Virus Vaccine Quad IM 3+ YRS 2017-05-14 00:00:00 Completed [facility] Influenza Virus Vaccine Quad IM 3+ YRS 2017-05-14 00:00:00 Completed [facility] Influenza Virus Vaccine Quad IM 3+ YRS 2017-05-14 00:00:00 Completed [facility] Influenza Virus Vaccine Quad IM 3+ YRS 2017-05-14 00:00:00 Completed [facility] Influenza Virus Vaccine Quad IM 3+ YRS 2017-05-14 00:00:00 Completed [facility] Influenza Virus Vaccine Quad IM 3+ YRS 2017-05-14 00:00:00 Completed [facility] Influenza Virus Vaccine Quad IM 3+ YRS 2017-05-14 00:00:00 Completed [facility] Influenza Virus Vaccine Quad IM 3+ YRS 2017-05-14 00:00:00 Completed [facility] Influenza Virus Vaccine Quad IM 3+ YRS 2017-05-14 00:00:00 Completed [facility] Influenza Virus Vaccine Quad IM 3+ YRS 2017-05-14 00:00:00 Completed [facility] Influenza Virus Vaccine Quad IM 3+ YRS 2017-05-14 00:00:00 Completed [facility] Influenza Virus Vaccine Quad IM 3+ YRS 2017-05-14 00:00:00 Completed [facility] Influenza Virus Vaccine Quad IM 3+ YRS 2017-05-14 00:00:00 Completed [facility] Influenza Virus Vaccine Quad IM 3+ YRS 2017-05-14 00:00:00 Completed [facility] Influenza Virus Vaccine Quad IM 3+ YRS 2017-05-14 00:00:00 Completed [facility] Influenza Virus Vaccine Quad IM 3+ YRS 2017-05-14 00:00:00 Completed [facility] Influenza Virus Vaccine Quad IM 3+ YRS 2017-05-14 00:00:00 Completed [facility] Influenza Virus Vaccine Quad IM 3+ YRS 2017-05-14 00:00:00 Completed [facility] Influenza Virus Vaccine Quad IM 3+ YRS 2017-05-14 00:00:00 Completed Influenza Virus Vaccine (3+ yrs) 2016-06-04 00:00:00 Completed [facility] Influenza Intradermal Vaccine 2016-06-04 00:00:00 Completed [facility] Influenza Virus Vaccine (3+ yrs) 2016-06-04 00:00:00 Completed [facility] Influenza Intradermal Vaccine 2016-06-04 00:00:00 Completed [facility] Influenza Virus Vaccine (3+ yrs) 2016-06-04 00:00:00 Completed [facility] Influenza Intradermal Vaccine 2016-06-04 00:00:00 Completed [facility] Influenza Virus Vaccine (3+ yrs) 2016-06-04 00:00:00 Completed [facility] Influenza Intradermal Vaccine 2016-06-04 00:00:00 Completed [facility] Influenza Virus Vaccine (3+ yrs) 2016-06-04 00:00:00 Completed [facility] Influenza Intradermal Vaccine 2016-06-04 00:00:00 Completed [facility] Influenza Virus Vaccine (3+ yrs) 2016-06-04 00:00:00 [facility] [facility] Influenza Intradermal Vaccine 2016-06-04 00:00:00 Completed [facility] Influenza Virus Vaccine (3+ yrs) 2016-06-04 00:00:00 Completed [facility] Influenza Intradermal Vaccine 2016-06-04 00:00:00 Completed [facility] Influenza Virus Vaccine (3+ yrs) 2016-06-04 00:00:00 Completed [facility] Influenza Intradermal Vaccine 2016-06-04 00:00:00 Completed [facility] Influenza Virus Vaccine (3+ yrs) 2016-06-04 00:00:00 Completed [facility] Influenza Intradermal Vaccine 2016-06-04 00:00:00 Completed [facility] Influenza Virus Vaccine (3+ yrs) 2016-06-04 00:00:00 Completed [facility] Influenza Intradermal Vaccine 2016-06-04 00:00:00 Completed [facility] Influenza Virus Vaccine (3+ yrs) 2016-06-04 00:00:00 Completed [facility] Influenza Intradermal Vaccine 2016-06-04 00:00:00 Completed [facility] Influenza Virus Vaccine (3+ yrs) 2016-06-04 00:00:00 Completed [facility] Influenza Intradermal Vaccine 2016-06-04 00:00:00 Completed [facility] Influenza Virus Vaccine (3+ yrs) 2016-06-04 00:00:00 Completed [facility] Influenza Intradermal Vaccine 2016-06-04 00:00:00 Completed [facility] Influenza Virus Vaccine (3+ yrs) 2016-06-04 00:00:00 Completed [facility] Influenza Intradermal Vaccine 2016-06-04 00:00:00 Completed [facility] Influenza Virus Vaccine (3+ yrs) 2016-06-04 00:00:00 Completed [facility] Influenza Intradermal Vaccine 2016-06-04 00:00:00 Completed [facility] Influenza Virus Vaccine (3+ yrs) 2016-06-04 00:00:00 Completed [facility] Influenza Intradermal Vaccine 2016-06-04 00:00:00 Completed [facility] Influenza Virus Vaccine (3+ yrs) 2016-06-04 00:00:00 Completed [facility] Influenza Intradermal Vaccine 2016-06-04 00:00:00 Completed [facility] Influenza Virus Vaccine (3+ yrs) 2016-06-04 00:00:00 Completed [facility] Influenza Intradermal Vaccine 2016-06-04 00:00:00 Completed [facility] Influenza Virus Vaccine (3+ yrs) 2016-06-04 00:00:00 Completed [facility] Influenza Intradermal Vaccine 2016-06-04 00:00:00 Completed [facility] Influenza Virus Vaccine (3+ yrs) 2016-06-04 00:00:00 Completed [facility] Influenza Intradermal Vaccine 2016-06-04 00:00:00 Completed [facility] Influenza Virus Vaccine (3+ yrs) 2016-06-04 00:00:00 Completed [facility] Influenza Intradermal Vaccine 2016-06-04 00:00:00 Completed [facility] Influenza Virus Vaccine (3+ yrs) 2016-06-04 00:00:00 Completed [facility] Influenza Intradermal Vaccine 2016-06-04 00:00:00 Completed [facility] Influenza Virus Vaccine (3+ yrs) 2016-06-04 00:00:00 Completed [facility] Influenza Intradermal Vaccine 2016-06-04 00:00:00 Completed [facility] Influenza Virus Vaccine (3+ yrs) 2016-06-04 00:00:00 Completed [facility] Influenza Intradermal Vaccine 2016-06-04 00:00:00 Completed [facility] Influenza Virus Vaccine (3+ yrs) 2016-06-04 00:00:00 Completed [facility] Influenza Intradermal Vaccine 2016-06-04 00:00:00 Completed [facility] Influenza Virus Vaccine (3+ yrs) 2016-06-04 00:00:00 Completed [facility] Influenza Intradermal Vaccine 2016-06-04 00:00:00 Completed [facility] Influenza Virus Vaccine (3+ yrs) 2016-06-04 00:00:00 Completed [facility] Influenza Intradermal Vaccine 2016-06-04 00:00:00 Completed [facility] Influenza Virus Vaccine (3+ yrs) 2016-06-04 00:00:00 Completed [facility] Influenza Intradermal Vaccine 2016-06-04 00:00:00 Completed [facility] Influenza Virus Vaccine (3+ yrs) 2016-06-04 00:00:00 Completed [facility] Influenza Intradermal Vaccine 2016-06-04 00:00:00 Completed [facility] Influenza Virus Vaccine (3+ yrs) 2016-06-04 00:00:00 Completed [facility] Influenza Intradermal Vaccine 2016-06-04 00:00:00 Completed [facility] Influenza Virus Vaccine (3+ yrs) 2016-06-04 00:00:00 Completed [facility] Influenza Intradermal Vaccine 2016-06-04 00:00:00 Completed [facility] Influenza Virus Vaccine (3+ yrs) 2016-06-04 00:00:00 Completed [facility] Influenza Intradermal Vaccine 2016-06-04 00:00:00 Completed [facility] Influenza Virus Vaccine (3+ yrs) 2016-06-04 00:00:00 Completed [facility] Influenza Intradermal Vaccine 2016-06-04 00:00:00 Completed [facility] Influenza Virus Vaccine (3+ yrs) 2016-06-04 00:00:00 Completed [facility] Influenza Intradermal Vaccine 2016-06-04 00:00:00 Completed [facility] Influenza Virus Vaccine (3+ yrs) 2016-06-04 00:00:00 Completed [facility] Influenza Intradermal Vaccine 2016-06-04 00:00:00 Completed [facility] Influenza Virus Vaccine (3+ yrs) 2016-06-04 00:00:00 Completed [facility] Influenza Intradermal Vaccine 2016-06-04 00:00:00 Completed [facility] Influenza Virus Vaccine (3+ yrs) 2016-06-04 00:00:00 Completed [facility] Influenza Intradermal Vaccine 2016-06-04 00:00:00 Completed [facility] Influenza Virus Vaccine (3+ yrs) 2016-06-04 00:00:00 Completed [facility] Influenza Intradermal Vaccine 2016-06-04 00:00:00 Completed [facility] Influenza Virus Vaccine (3+ yrs) 2016-06-04 00:00:00 Completed [facility] Influenza Intradermal Vaccine 2016-06-04 00:00:00 Completed [facility] Influenza, split virus, trivalent, preservative (3+ Yrs) (Afluria) 2016-06-04 00:00:00 Completed [facility] Influenza Intradermal Vaccine 2016-06-04 00:00:00 Completed [facility] Influenza Virus Vaccine (3+ yrs) 2015-05-05 00:00:00 Completed [facility] Tetanus/Diptheria 2015-05-05 00:00:00 Completed [facility] Tetanus Toxoid, Absorbed 2015-05-05 00:00:00 Completed [facility] Influenza Virus Vaccine (3+ yrs) 2015-05-05 00:00:00 Completed [facility] Tetanus/Diptheria 2015-05-05 00:00:00 Completed [facility] Tetanus Toxoid, Absorbed 2015-05-05 00:00:00 Completed [facility] Influenza Virus Vaccine (3+ yrs) 2015-05-05 00:00:00 Completed [facility] Tetanus/Diptheria 2015-05-05 00:00:00 Completed [facility] Tetanus Toxoid, Absorbed 2015-05-05 00:00:00 Completed [facility] Influenza Virus Vaccine (3+ yrs) 2015-05-05 00:00:00 Completed [facility] Tetanus/Diptheria 2015-05-05 00:00:00 Completed [facility] Tetanus Toxoid, Absorbed 2015-05-05 00:00:00 Completed [facility] Influenza Virus Vaccine (3+ yrs) 2015-05-05 00:00:00 Completed [facility] Tetanus/Diptheria 2015-05-05 00:00:00 Completed [facility] Tetanus Toxoid, Absorbed 2015-05-05 00:00:00 Completed [facility] Influenza Virus Vaccine (3+ yrs) 2015-05-05 00:00:00 Completed [facility] Tetanus/Diptheria 2015-05-05 00:00:00 Completed [facility] Tetanus Toxoid, Absorbed 2015-05-05 00:00:00 Completed [facility] Influenza Virus Vaccine (3+ yrs) 2015-05-05 00:00:00 Completed [facility] Tetanus/Diptheria 2015-05-05 00:00:00 Completed [facility] Tetanus Toxoid, Absorbed 2015-05-05 00:00:00 Completed [facility] Influenza Virus Vaccine (3+ yrs) 2015-05-05 00:00:00 Completed [facility] Tetanus/Diptheria 2015-05-05 00:00:00 Completed [facility] Tetanus Toxoid, Absorbed 2015-05-05 00:00:00 Completed [facility] Influenza Virus Vaccine (3+ yrs) 2015-05-05 00:00:00 Completed [facility] Tetanus/Diptheria 2015-05-05 00:00:00 Completed [facility] Tetanus Toxoid, Absorbed 2015-05-05 00:00:00 Completed [facility] Influenza Virus Vaccine (3+ yrs) 2015-05-05 00:00:00 Completed [facility] Tetanus/Diptheria 2015-05-05 00:00:00 Completed [facility] Tetanus Toxoid, Absorbed 2015-05-05 00:00:00 Completed [facility] Influenza Virus Vaccine (3+ yrs) 2015-05-05 00:00:00 Completed [facility] Tetanus/Diptheria 2015-05-05 00:00:00 Completed [facility] Tetanus Toxoid, Absorbed 2015-05-05 00:00:00 Completed [facility] Influenza Virus Vaccine (3+ yrs) 2015-05-05 00:00:00 Completed [facility] Tetanus/Diptheria 2015-05-05 00:00:00 Completed [facility] Tetanus Toxoid, Absorbed 2015-05-05 00:00:00 Completed [facility] Influenza Virus Vaccine (3+ yrs) 2015-05-05 00:00:00 Completed [facility] Tetanus/Diptheria 2015-05-05 00:00:00 Completed [facility] Tetanus Toxoid, Absorbed 2015-05-05 00:00:00 Completed [facility] Influenza Virus Vaccine (3+ yrs) 2015-05-05 00:00:00 Completed [facility] Tetanus/Diptheria 2015-05-05 00:00:00 Completed [facility] Tetanus Toxoid, Absorbed 2015-05-05 00:00:00 Completed [facility] Influenza Virus Vaccine (3+ yrs) 2015-05-05 00:00:00 Completed [facility] Tetanus/Diptheria 2015-05-05 00:00:00 Completed [facility] Tetanus Toxoid, Absorbed 2015-05-05 00:00:00 Completed [facility] Influenza Virus Vaccine (3+ yrs) 2015-05-05 00:00:00 Completed [facility] Tetanus/Diptheria 2015-05-05 00:00:00 Completed [facility] Tetanus Toxoid, Absorbed 2015-05-05 00:00:00 Completed [facility] Influenza Virus Vaccine (3+ yrs) 2015-05-05 00:00:00 Completed [facility] Tetanus/Diptheria 2015-05-05 00:00:00 Completed [facility] Tetanus Toxoid, Absorbed 2015-05-05 00:00:00 Completed [facility] Influenza Virus Vaccine (3+ yrs) 2015-05-05 00:00:00 Completed [facility] Tetanus/Diptheria 2015-05-05 00:00:00 Completed [facility] Tetanus Toxoid, Absorbed 2015-05-05 00:00:00 Completed [facility] Influenza Virus Vaccine (3+ yrs) 2015-05-05 00:00:00 Completed [facility] Tetanus/Diptheria 2015-05-05 00:00:00 Completed [facility] Tetanus Toxoid, Absorbed 2015-05-05 00:00:00 Completed [facility] Influenza Virus Vaccine (3+ yrs) 2015-05-05 00:00:00 Completed [facility] Tetanus/Diptheria 2015-05-05 00:00:00 Completed [facility] Tetanus Toxoid, Absorbed 2015-05-05 00:00:00 Completed [facility] Influenza Virus Vaccine (3+ yrs) 2015-05-05 00:00:00 Completed [facility] Tetanus/Diptheria 2015-05-05 00:00:00 Completed [facility] Tetanus Toxoid, Absorbed 2015-05-05 00:00:00 Completed [facility] Influenza Virus Vaccine (3+ yrs) 2015-05-05 00:00:00 Completed [facility] Tetanus/Diptheria 2015-05-05 00:00:00 Completed [facility] Tetanus Toxoid, Absorbed 2015-05-05 00:00:00 Completed [facility] Influenza Virus Vaccine (3+ yrs) 2015-05-05 00:00:00 Completed [facility] Tetanus/Diptheria 2015-05-05 00:00:00 Completed [facility] Tetanus Toxoid, Absorbed 2015-05-05 00:00:00 Completed [facility] Influenza Virus Vaccine (3+ yrs) 2015-05-05 00:00:00 Completed [facility] Tetanus/Diptheria 2015-05-05 00:00:00 Completed [facility] Tetanus Toxoid, Absorbed 2015-05-05 00:00:00 Completed [facility] Influenza Virus Vaccine (3+ yrs) 2015-05-05 00:00:00 Completed [facility] Tetanus/Diptheria 2015-05-05 00:00:00 Completed [facility] Tetanus Toxoid, Absorbed 2015-05-05 00:00:00 Completed [facility] Influenza Virus Vaccine (3+ yrs) 2015-05-05 00:00:00 Completed [facility] Tetanus/Diptheria 2015-05-05 00:00:00 Completed [facility] Tetanus Toxoid, Absorbed 2015-05-05 00:00:00 Completed [facility] Influenza Virus Vaccine (3+ yrs) 2015-05-05 00:00:00 Completed [facility] Tetanus/Diptheria 2015-05-05 00:00:00 Completed [facility] Tetanus Toxoid, Absorbed 2015-05-05 00:00:00 Completed [facility] Influenza Virus Vaccine (3+ yrs) 2015-05-05 00:00:00 Completed [facility] Tetanus/Diptheria 2015-05-05 00:00:00 Completed [facility] Tetanus Toxoid, Absorbed 2015-05-05 00:00:00 Completed [facility] Influenza Virus Vaccine (3+ yrs) 2015-05-05 00:00:00 Completed [facility] Tetanus/Diptheria 2015-05-05 00:00:00 Completed [facility] Tetanus Toxoid, Absorbed 2015-05-05 00:00:00 Completed [facility] Influenza Virus Vaccine (3+ yrs) 2015-05-05 00:00:00 Completed [facility] Tetanus/Diptheria 2015-05-05 00:00:00 Completed [facility] Tetanus Toxoid, Absorbed 2015-05-05 00:00:00 Completed [facility] Influenza Virus Vaccine (3+ yrs) 2015-05-05 00:00:00 Completed [facility] Tetanus/Diptheria 2015-05-05 00:00:00 Completed [facility] Tetanus Toxoid, Absorbed 2015-05-05 00:00:00 Completed [facility] Influenza Virus Vaccine (3+ yrs) 2015-05-05 00:00:00 Completed [facility] Tetanus/Diptheria 2015-05-05 00:00:00 Completed [facility] Tetanus Toxoid, Absorbed 2015-05-05 00:00:00 Completed [facility] Influenza Virus Vaccine (3+ yrs) 2015-05-05 00:00:00 Completed [facility] Tetanus/Diptheria 2015-05-05 00:00:00 Completed [facility] Tetanus Toxoid, Absorbed 2015-05-05 00:00:00 Completed [facility] Influenza Virus Vaccine (3+ yrs) 2015-05-05 00:00:00 Completed [facility] Tetanus/Diptheria 2015-05-05 00:00:00 Completed [facility] Tetanus Toxoid, Absorbed 2015-05-05 00:00:00 Completed [facility] Influenza Virus Vaccine (3+ yrs) 2015-05-05 00:00:00 Completed [facility] Tetanus/Diptheria 2015-05-05 00:00:00 Completed [facility] Tetanus Toxoid, Absorbed 2015-05-05 00:00:00 Completed [facility] Influenza Virus Vaccine (3+ yrs) 2015-05-05 00:00:00 Completed [facility] Tetanus/Diptheria 2015-05-05 00:00:00 Completed [facility] Tetanus Toxoid, Absorbed 2015-05-05 00:00:00 Completed [facility] Influenza Virus Vaccine (3+ yrs) 2015-05-05 00:00:00 Completed [facility] Tetanus/Diptheria 2015-05-05 00:00:00 Completed [facility] Tetanus Toxoid, Absorbed 2015-05-05 00:00:00 Completed [facility] Influenza Virus Vaccine (3+ yrs) 2015-05-05 00:00:00 Completed [facility] Tetanus/Diptheria 2015-05-05 00:00:00 Completed [facility] Tetanus Toxoid, Absorbed 2015-05-05 00:00:00 Completed [facility] Influenza Virus Vaccine (3+ yrs) 2015-05-05 00:00:00 Completed [facility] Tetanus/Diptheria 2015-05-05 00:00:00 Completed [facility] Tetanus Toxoid, Absorbed 2015-05-05 00:00:00 Completed [facility] Influenza, split virus, trivalent, preservative (3+ Yrs) (Afluria) 2015-05-05 00:00:00 Completed Tetanus/Diptheria 2015-05-05 00:00:00 Completed Tetanus Toxoid, Absorbed 2015-05-05 00:00:00 Completed H1n1 Vaccine 2009-06-05 00:00:00 Completed Influenza Virus Vaccine (3+ yrs) Unknown Completed [facility] Tetanus/Diptheria Unknown Completed [facility] Influenza Virus Vaccine Quad IM 3+ YRS Unknown Completed [facility] Influenza Intradermal Vaccine Unknown Completed [facility] Influenza Virus Vaccine Unknown Completed [facility] Zoster Vaccine Recombinant Unknown Completed [facility] Tetanus Toxoid, Absorbed Unknown Completed [facility] SARS-COV-2 COVID-19 PFIZER VACCINE Unknown Completed [facility] Influenza Virus Vaccine (3+ yrs) Unknown Completed [facility] Tetanus/Diptheria Unknown Completed [facility] Influenza Virus Vaccine Quad IM 3+ YRS Unknown Completed [facility] Influenza Intradermal Vaccine Unknown Completed [facility] Influenza Virus Vaccine Unknown Completed [facility] Zoster Vaccine Recombinant Unknown Completed [facility] Tetanus Toxoid, Absorbed Unknown Completed [facility] SARS-COV-2 COVID-19 PFIZER VACCINE Unknown Completed [facility] Influenza Virus Vaccine (3+ yrs) Unknown Completed [facility] Tetanus/Diptheria Unknown Completed [facility] Influenza Virus Vaccine Quad IM 3+ YRS Unknown Completed [facility] Influenza Intradermal Vaccine Unknown Completed [facility] Influenza Virus Vaccine Unknown Completed [facility] Zoster Vaccine Recombinant Unknown Completed [facility] Tetanus Toxoid, Absorbed Unknown Completed [facility] SARS-COV-2 COVID-19 PFIZER VACCINE Unknown Completed [facility] Influenza Virus Vaccine (3+ yrs) Unknown Completed [facility] Tetanus/Diptheria Unknown Completed [facility] Influenza Virus Vaccine Quad IM 3+ YRS Unknown Completed [facility] Influenza Intradermal Vaccine Unknown Completed [facility] Influenza Virus Vaccine Unknown Completed [facility] Zoster Vaccine Recombinant Unknown Completed [facility] Tetanus Toxoid, Absorbed Unknown Completed [facility] SARS-COV-2 COVID-19 PFIZER VACCINE Unknown Completed [facility] Influenza Virus Vaccine (3+ yrs) Unknown Completed [facility] Tetanus/Diptheria Unknown Completed [facility] Influenza Virus Vaccine Quad IM 3+ YRS Unknown Completed [facility] Influenza Intradermal Vaccine Unknown Completed [facility] Influenza Virus Vaccine Unknown Completed [facility] Zoster Vaccine Recombinant Unknown Completed [facility] Tetanus Toxoid, Absorbed Unknown Completed [facility] SARS-COV-2 COVID-19 PFIZER VACCINE Unknown Completed [facility] Influenza Virus Vaccine (3+ yrs) Unknown Completed [facility] Tetanus/Diptheria Unknown Completed [facility] Influenza Virus Vaccine Quad IM 3+ YRS Unknown Completed [facility] Influenza Intradermal Vaccine Unknown Completed [facility] Influenza Virus Vaccine Unknown Completed [facility] Zoster Vaccine Recombinant Unknown Completed [facility] Tetanus Toxoid, Absorbed Unknown Completed [facility] SARS-COV-2 COVID-19 PFIZER VACCINE Unknown Completed [facility] Influenza Virus Vaccine (3+ yrs) Unknown Completed [facility] Tetanus/Diptheria Unknown Completed [facility] Influenza Virus Vaccine Quad IM 3+ YRS Unknown Completed [facility] Influenza Intradermal Vaccine Unknown Completed [facility] Influenza Virus Vaccine Unknown Completed [facility] Zoster Vaccine Recombinant Unknown Completed [facility] Tetanus Toxoid, Absorbed Unknown Completed [facility] SARS-COV-2 COVID-19 PFIZER VACCINE Unknown Completed [facility] Influenza Virus Vaccine (3+ yrs) Unknown Completed [facility] Tetanus/Diptheria Unknown Completed [facility] Influenza Virus Vaccine Quad IM 3+ YRS Unknown Completed [facility] Influenza Intradermal Vaccine Unknown Completed [facility] Influenza Virus Vaccine Unknown Completed [facility] Zoster Vaccine Recombinant Unknown Completed [facility] Tetanus Toxoid, Absorbed Unknown Completed [facility] SARS-COV-2 COVID-19 PFIZER VACCINE Unknown Completed [facility] Influenza Virus Vaccine (3+ yrs) Unknown Completed [facility] Tetanus/Diptheria Unknown Completed [facility] Influenza Virus Vaccine Quad IM 3+ YRS Unknown Completed [facility] Influenza Intradermal Vaccine Unknown Completed [facility] Influenza Virus Vaccine Unknown Completed [facility] Zoster Vaccine Recombinant Unknown Completed [facility] Tetanus Toxoid, Absorbed Unknown Completed [facility] SARS-COV-2 COVID-19 PFIZER VACCINE Unknown Completed [facility] Influenza Virus Vaccine (3+ yrs) Unknown Completed [facility] Tetanus/Diptheria Unknown Completed [facility] Influenza Virus Vaccine Quad IM 3+ YRS Unknown Completed [facility] Influenza Intradermal Vaccine Unknown Completed [facility] Influenza Virus Vaccine Unknown Completed [facility] Zoster Vaccine Recombinant Unknown Completed [facility] Tetanus Toxoid, Absorbed Unknown Completed [facility] SARS-COV-2 COVID-19 PFIZER VACCINE Unknown Completed [facility] Influenza Virus Vaccine (3+ yrs) Unknown Completed [facility] Tetanus/Diptheria Unknown Completed [facility] Influenza Virus Vaccine Quad IM 3+ YRS Unknown Completed [facility] Influenza Intradermal Vaccine Unknown Completed [facility] Influenza Virus Vaccine Unknown Completed [facility] Zoster Vaccine Recombinant Unknown Completed [facility] Tetanus Toxoid, Absorbed Unknown Completed [facility] SARS-COV-2 COVID-19 PFIZER VACCINE Unknown Completed [facility] H1n1 Vaccine Unknown Completed [facility] Influenza Virus Vaccine (3+ yrs) Unknown Completed [facility] Tetanus/Diptheria Unknown Completed [facility] Influenza Virus Vaccine Quad IM 3+ YRS Unknown Completed [facility] Influenza Intradermal Vaccine Unknown Completed [facility] Influenza Virus Vaccine Unknown Completed [facility] Zoster Vaccine Recombinant Unknown Completed [facility] Tetanus Toxoid, Absorbed Unknown Completed [facility] SARS-COV-2 COVID-19 PFIZER VACCINE Unknown Completed [facility] H1n1 Vaccine Unknown Completed [facility] Influenza Virus Vaccine (3+ yrs) Unknown Completed [facility] Tetanus/Diptheria Unknown Completed [facility] Influenza Virus Vaccine Quad IM 3+ YRS Unknown Completed [facility] Influenza Intradermal Vaccine Unknown Completed [facility] Influenza Virus Vaccine Unknown Completed [facility] Zoster Vaccine Recombinant Unknown Completed [facility] Tetanus Toxoid, Absorbed Unknown Completed [facility] SARS-COV-2 COVID-19 PFIZER VACCINE Unknown Completed [facility] H1n1 Vaccine Unknown Completed [facility] Influenza Virus Vaccine (3+ yrs) Unknown Completed [facility] Tetanus/Diptheria Unknown Completed [facility] Influenza Virus Vaccine Quad IM 3+ YRS Unknown Completed [facility] Influenza Intradermal Vaccine Unknown Completed [facility] Influenza Virus Vaccine Unknown Completed [facility] Zoster Vaccine Recombinant Unknown Completed [facility] Tetanus Toxoid, Absorbed Unknown Completed [facility] SARS-COV-2 COVID-19 PFIZER VACCINE Unknown Completed [facility] H1n1 Vaccine Unknown Completed [facility] Influenza Virus Vaccine Quad IM, Preserv and ABX Free 6 MO-64 YRS (FLUCELVAX) Unknown Completed [facility] Influenza Virus Vaccine (3+ yrs) Unknown Completed [facility] Tetanus/Diptheria Unknown Completed [facility] Influenza Virus Vaccine Quad IM 3+ YRS Unknown Completed [facility] Influenza Intradermal Vaccine Unknown Completed [facility] Influenza Virus Vaccine Unknown Completed [facility] Zoster Vaccine Recombinant Unknown Completed [facility] Tetanus Toxoid, Absorbed Unknown Completed [facility] SARS-COV-2 COVID-19 PFIZER VACCINE Unknown Completed [facility] H1n1 Vaccine Unknown Completed [facility] Influenza Virus Vaccine Quad IM, Preserv and ABX Free 6 MO-64 YRS (FLUCELVAX) Unknown Completed [facility] Influenza Virus Vaccine (3+ yrs) Unknown Completed [facility] Tetanus/Diptheria Unknown Completed [facility] Influenza Virus Vaccine Quad IM 3+ YRS Unknown Completed [facility] Influenza Intradermal Vaccine Unknown Completed [facility] Influenza Virus Vaccine Unknown Completed [facility] Zoster Vaccine Recombinant Unknown Completed [facility] Tetanus Toxoid, Absorbed Unknown Completed [facility] SARS-COV-2 COVID-19 PFIZER VACCINE Unknown Completed [facility] H1n1 Vaccine Unknown Completed [facility] Influenza Virus Vaccine Quad IM, Preserv and ABX Free 6 MO-64 YRS (FLUCELVAX) Unknown Completed [facility] Influenza Virus Vaccine (3+ yrs) Unknown Completed [facility] Tetanus/Diptheria Unknown Completed [facility] Influenza Virus Vaccine Quad IM 3+ YRS Unknown Completed [facility] Influenza Intradermal Vaccine Unknown Completed [facility] Influenza Virus Vaccine Unknown Completed [facility] Zoster Vaccine Recombinant Unknown Completed [facility] Tetanus Toxoid, Absorbed Unknown Completed [facility] SARS-COV-2 COVID-19 PFIZER VACCINE Unknown Completed [facility] H1n1 Vaccine Unknown Completed [facility] Influenza Virus Vaccine Quad IM, Preserv and ABX Free 6 MO-64 YRS (FLUCELVAX) Unknown Completed [facility] Influenza Virus Vaccine (3+ yrs) Unknown Completed [facility] Tetanus/Diptheria Unknown Completed [facility] Influenza Virus Vaccine Quad IM 3+ YRS Unknown Completed [facility] Influenza Intradermal Vaccine Unknown Completed [facility] Influenza Virus Vaccine Unknown Completed [facility] Zoster Vaccine Recombinant Unknown Completed [facility] Tetanus Toxoid, Absorbed Unknown Completed [facility] SARS-COV-2 COVID-19 PFIZER VACCINE Unknown Completed [facility] H1n1 Vaccine Unknown [facility] Quad IM, Preserv and ABX Free 6 MO-64 YRS (FLUCELVAX) Unknown Completed [facility] Influenza Virus Vaccine (3+ yrs) Unknown Completed [facility] Tetanus/Diptheria Unknown Completed [facility] Influenza Virus Vaccine Quad IM 3+ YRS Unknown Completed [facility] Influenza Intradermal Vaccine Unknown Completed [facility] Influenza Virus Vaccine Unknown Completed [facility] Zoster Vaccine Recombinant Unknown Completed [facility] Tetanus Toxoid, Absorbed Unknown Completed [facility] SARS-COV-2 COVID-19 PFIZER VACCINE Unknown Completed [facility] H1n1 Vaccine Unknown [facility] Vaccine Quad IM, Preserv and ABX Free 6 MO-64 YRS (FLUCELVAX) Unknown Completed [facility] Influenza Virus Vaccine (3+ yrs) Unknown Completed [facility] Tetanus/Diptheria Unknown Completed [facility] Influenza Virus Vaccine Quad IM 3+ YRS Unknown Completed [facility] Influenza Intradermal Vaccine Unknown Completed [facility] Influenza Virus Vaccine Unknown Completed [facility] Zoster Vaccine Recombinant Unknown Completed [facility] Tetanus Toxoid, Absorbed Unknown Completed [facility] SARS-COV-2 COVID-19 PFIZER VACCINE Unknown Completed [facility] H1n1 Vaccine Unknown Completed [facility] Influenza Virus Vaccine Quad IM, Preserv and ABX Free 6 MO-64 YRS (FLUCELVAX) Unknown Completed [facility] Influenza Virus Vaccine (3+ yrs) Unknown Completed [facility] Tetanus/Diptheria Unknown Completed [facility] Influenza Virus Vaccine Quad IM 3+ YRS Unknown Completed [facility] Influenza Intradermal Vaccine Unknown Completed [facility] Influenza Virus Vaccine Unknown Completed [facility] Zoster Vaccine Recombinant Unknown Completed [facility] Tetanus Toxoid, Absorbed Unknown Completed [facility] SARS-COV-2 COVID-19 PFIZER VACCINE Unknown Completed [facility] H1n1 Vaccine Unknown [facility] Vaccine Quad IM, Preserv and ABX Free 6 MO-64 YRS (FLUCELVAX) Unknown Completed [facility] Influenza Virus Vaccine (3+ yrs) Unknown Completed [facility]anus/Diptheria [facility]ine Quad IM 3+ YRS Unknown Completed [facility] Influenza Intradermal Vaccine Unknown Completed [facility] Influenza Virus Vaccine Unknown Completed [facility] Zoster Vaccine Recombinant Unknown Completed [facility] Tetanus Toxoid, Absorbed Unknown Completed [facility] SARS-COV-2 COVID-19 PFIZER VACCINE Unknown Completed [facility] H1n1 Vaccine Unknown [facility] Virus Vaccine Quad IM, Preserv and ABX Free 6 MO-64 YRS (FLUCELVAX) Unknown Completed [facility] Influenza Virus Vaccine (3+ yrs) Unknown Completed [facility] Tetanus/Diptheria Unknown Completed [facility] Influenza Virus Vaccine Quad IM 3+ YRS Unknown Completed [facility] Influenza Intradermal Vaccine Unknown Completed [facility] Influenza Virus Vaccine Unknown Completed [facility] Zoster Vaccine Recombinant Unknown Completed [facility] Tetanus Toxoid, Absorbed Unknown Completed [facility] SARS-COV-2 COVID-19 PFIZER VACCINE Unknown Completed [facility] H1n1 Vaccine Unknown Completed [facility] Influenza Virus Vaccine Quad IM, Preserv and ABX Free 6 MO-64 YRS (FLUCELVAX) Unknown Completed [facility] Influenza Virus Vaccine (3+ yrs) Unknown Completed [facility] Tetanus/Diptheria Unknown Completed [facility] Influenza Virus Vaccine Quad IM 3+ YRS Unknown Completed [facility] Influenza Intradermal Vaccine Unknown Completed [facility] Influenza Virus Vaccine Unknown Completed [facility] Zoster Vaccine Recombinant Unknown Completed [facility] Tetanus Toxoid, Absorbed Unknown Completed [facility] SARS-COV-2 COVID-19 PFIZER VACCINE Unknown Completed [facility] H1n1 Vaccine Unknown [facility] Virus Vaccine Quad IM, Preserv and ABX Free 6 MO-64 YRS (FLUCELVAX) Unknown Completed [facility] Influenza Virus Vaccine (3+ yrs) Unknown Completed [facility] Tetanus/Diptheria Unknown Completed [facility] Influenza Virus Vaccine Quad IM 3+ YRS Unknown Completed [facility] Influenza Intradermal Vaccine Unknown Completed [facility] Influenza Virus Vaccine Unknown Completed [facility] Zoster Vaccine Recombinant Unknown Completed [facility] Tetanus Toxoid, Absorbed Unknown Completed [facility] SARS-COV-2 COVID-19 PFIZER VACCINE Unknown Completed [facility] H1n1 Vaccine Unknown [facility] Vaccine Quad IM, Preserv and ABX Free 6 MO-64 YRS (FLUCELVAX) Unknown Completed [facility] Influenza Virus Vaccine (3+ yrs) Unknown Completed [facility] Tetanus/Diptheria Unknown Completed [facility] Influenza Virus Vaccine Quad IM 3+ YRS Unknown Completed [facility] Influenza Intradermal Vaccine Unknown Completed [facility] Influenza Virus Vaccine Unknown Completed [facility] Zoster Vaccine Recombinant Unknown Completed [facility] Tetanus Toxoid, Absorbed Unknown Completed [facility] SARS-COV-2 COVID-19 PFIZER VACCINE Unknown Completed [facility] H1n1 Vaccine Unknown Completed [facility] Influenza Virus Vaccine Quad IM, Preserv and ABX Free 6 MO-64 YRS (FLUCELVAX) Unknown Completed [facility] Influenza Virus Vaccine (3+ yrs) Unknown Completed [facility] Tetanus/Diptheria Unknown Completed [facility] Influenza Virus Vaccine Quad IM 3+ YRS Unknown Completed [facility] Influenza Intradermal Vaccine Unknown Completed [facility] Influenza Virus Vaccine Unknown Completed [facility] Zoster Vaccine Recombinant Unknown Completed [facility] Tetanus Toxoid, Absorbed Unknown Completed [facility] SARS-COV-2 COVID-19 PFIZER VACCINE Unknown Completed [facility] H1n1 Vaccine Unknown Completed [facility] Influenza Virus Vaccine Quad IM, Preserv and ABX Free 6 MO-64 YRS (FLUCELVAX) Unknown Completed [facility] Influenza Virus Vaccine (3+ yrs) Unknown Completed [facility] Tetanus/Diptheria [facility]ine Quad IM 3+ YRS Unknown Completed [facility] Influenza Intradermal Vaccine Unknown Completed [facility] Influenza Virus Vaccine Unknown Completed [facility] Zoster Vaccine Recombinant Unknown Completed [facility] Tetanus Toxoid, Absorbed Unknown Completed [facility] SARS-COV-2 COVID-19 PFIZER VACCINE Unknown Completed [facility] H1n1 Vaccine Unknown Com[facility] Virus Vaccine Quad IM, Preserv and ABX Free 6 MO-64 YRS (FLUCELVAX) Unknown Completed [facility] Influenza Virus Vaccine (3+ yrs) Unknown Completed [facility] Tetanus/Diptheria Unknown [facility]ine Quad IM 3+ YRS Unknown Completed [facility] Influenza Intradermal Vaccine Unknown Completed [facility] Influenza Virus Vaccine Unknown Completed [facility] Zoster Vaccine Recombinant Unknown Completed [facility] Tetanus Toxoid, Absorbed Unknown Completed [facility] SARS-COV-2 COVID-19 PFIZER VACCINE Unknown Completed [facility] H1n1 Vaccine Unknown Completed [facility] Influenza Virus Vaccine Quad IM, Preserv and ABX Free 6 MO-64 YRS (FLUCELVAX) Unknown Completed [facility] Influenza Virus Vaccine (3+ yrs) Unknown Completed [facility] Tetanus/Diptheria Unknown Completed [facility] Influenza Virus Vaccine Quad IM 3+ YRS Unknown Completed [facility] Influenza Intradermal Vaccine Unknown Completed [facility] Influenza Virus Vaccine Unknown Completed [facility] Zoster Vaccine Recombinant Unknown Completed [facility] Tetanus Toxoid, Absorbed Unknown Completed [facility] SARS-COV-2 COVID-19 PFIZER VACCINE Unknown Completed [facility] H1n1 Vaccine Unknown Completed [facility] Influenza Virus Vaccine Quad IM, Preserv and ABX Free 6 MO-64 YRS (FLUCELVAX) Unknown Completed [facility] Influenza Virus Vaccine (3+ yrs) Unknown Completed [facility] Tetanus/Diptheria Unknown Completed [facility] Influenza Virus Vaccine Quad IM 3+ YRS Unknown Completed [facility] Influenza Intradermal Vaccine Unknown Completed [facility] Influenza Virus Vaccine Unknown Completed [facility] Zoster Vaccine Recombinant Unknown Completed [facility] Tetanus Toxoid, Absorbed Unknown Completed [facility] SARS-COV-2 COVID-19 PFIZER VACCINE Unknown Completed [facility] H1n1 Vaccine Unknown Completed [facility] Influenza Virus Vaccine Quad IM, Preserv and ABX Free 6 MO-64 YRS (FLUCELVAX) Unknown Completed [facility] Influenza Virus Vaccine (3+ yrs) Unknown Completed [facility] Tetanus/Diptheria Unknown Completed [facility] Influenza Virus Vaccine Quad IM 3+ YRS Unknown Completed [facility] Influenza Intradermal Vaccine Unknown Completed [facility] Influenza Virus Vaccine Unknown Completed [facility] Zoster Vaccine Recombinant Unknown Completed [facility] Tetanus Toxoid, Absorbed Unknown Completed [facility] SARS-COV-2 COVID-19 PFIZER VACCINE Unknown Completed [facility] H1n1 Vaccine Unknown Completed [facility] Influenza Virus Vaccine Quad IM, Preserv and ABX Free 6 MO-64 YRS (FLUCELVAX) Unknown Completed [facility] Influenza Virus Vaccine (3+ yrs) Unknown Completed [facility] Tetanus/Diptheria Unknown Completed [facility] Influenza Virus Vaccine Quad IM 3+ YRS Unknown Completed [facility] Influenza Intradermal Vaccine Unknown Completed [facility] Influenza Virus Vaccine Unknown Completed [facility] Zoster Vaccine Recombinant Unknown Completed [facility] Tetanus Toxoid, Absorbed Unknown Completed [facility] SARS-COV-2 COVID-19 PFIZER VACCINE Unknown Completed [facility] H1n1 Vaccine Unknown Completed [facility] Influenza Virus Vaccine Quad IM, Preserv and ABX Free 6 MO-64 YRS (FLUCELVAX) Unknown Completed [facility] Influenza Virus Vaccine (3+ yrs) Unknown Completed [facility] Tetanus/Diptheria Unknown Completed [facility] Influenza Virus Vaccine Quad IM 3+ YRS Unknown Completed [facility] Influenza Intradermal Vaccine Unknown Completed [facility] [facility] Influenza Virus Vaccine Unknown Completed [facility] Zoster Vaccine Recombinant Unknown Completed [facility] Tetanus Toxoid, Absorbed Unknown Completed [facility] SARS-COV-2 COVID-19 PFIZER VACCINE Unknown Completed [facility] H1n1 Vaccine Unknown Completed [facility] Influenza Virus Vaccine Quad IM, Preserv and ABX Free 6 MO-64 YRS (FLUCELVAX) Unknown Completed [facility] Influenza Virus Vaccine (3+ yrs) Unknown Completed [facility] Tetanus/Diptheria Unknown Completed [facility] Influenza Virus Vaccine Quad IM 3+ YRS Unknown Completed [facility] Influenza Intradermal Vaccine Unknown Completed [facility] Influenza Virus Vaccine Unknown Completed [facility] Zoster Vaccine Recombinant Unknown Completed [facility] Tetanus Toxoid, Absorbed Unknown Completed [facility] SARS-COV-2 COVID-19 PFIZER VACCINE Unknown Completed [facility] H1n1 Vaccine Unknown [facility] Quad IM, Preserv and ABX Free 6 MO-64 YRS (FLUCELVAX) Unknown Completed [facility] Influenza Virus Vaccine (3+ yrs) Unknown Completed [facility] Tetanus/Diptheria Unknown Completed [facility] Influenza Virus Vaccine Quad IM 3+ YRS Unknown Completed [facility] Influenza Intradermal Vaccine Unknown Completed [facility] Influenza Virus Vaccine Unknown Completed [facility] Zoster Vaccine Recombinant Unknown Completed [facility] Tetanus Toxoid, Absorbed Unknown Completed [facility] SARS-COV-2 COVID-19 PFIZER VACCINE Unknown Completed [facility] H1n1 Vaccine Unknown Completed [facility] Influenza Virus Vaccine Quad IM, Preserv and ABX Free 6 MO-64 YRS (FLUCELVAX) Unknown Completed [facility] Influenza Virus Vaccine (3+ yrs) Unknown Completed [facility] Tetanus/Diptheria Unknown Completed [facility] Influenza Virus Vaccine Quad IM 3+ YRS Unknown Completed [facility] Influenza Intradermal Vaccine Unknown Completed [facility] Influenza Virus Vaccine Unknown Completed [facility] Zoster Vaccine Recombinant Unknown Completed [facility] Tetanus Toxoid, Absorbed Unknown Completed [facility] SARS-COV-2 COVID-19 PFIZER VACCINE Unknown Completed [facility] H1n1 Vaccine Unknown Completed [facility] Influenza Virus Vaccine Quad IM, Preserv and ABX Free 6 MO-64 YRS (FLUCELVAX) Unknown Completed [facility]ria [facility] Com[facility] Tetanus Toxoid, Absorbed Unknown Completed [facility] H1n1 Vaccine Unknown [facility] Vaccine Quad IM, Preserv and ABX Free 6 MO-64 YRS (FLUCELVAX) Unknown Completed [facility] Influenza Virus Vaccine (3+ yrs) Unknown Completed [facility] Influenza Virus Vaccine Quad IM 3+ YRS Unknown Completed [facility] Influenza Virus Vaccine Unknown Completed [facility] Zoster Vaccine Recombinant Unknown Completed [facility] SARS-COV-2 COVID-19 PFIZER VACCINE Unknown Completed [facility] Influenza Virus Vaccine (3+ yrs) Unknown Completed [facility]anus/[facility]iptheria [facility]ine Quad IM 3+ YRS Unknown Completed [facility] Influenza Intradermal Vaccine Unknown Completed [facility] Influenza Virus Vaccine Unknown Completed [facility] Zoster Vaccine Recombinant Unknown Completed [facility] Tetanus Toxoid, Absorbed Unknown Completed [facility] SARS-COV-2 COVID-19 PFIZER VACCINE Unknown Completed [facility] H1n1 Vaccine Unknown Completed [facility] Influenza Virus Vaccine Quad IM, Preserv and ABX Free 6 MO-64 YRS (FLUCELVAX) Unknown Completed [facility] Influenza Virus Vaccine (3+ yrs) Unknown Completed [facility] Tetanus/Diptheria Unknown Completed [facility] Influenza Virus Vaccine Quad IM 3+ YRS Unknown Completed [facility] Influenza Intradermal Vaccine Unknown Completed [facility] Influenza Virus Vaccine Unknown Completed [facility] Zoster Vaccine Recombinant Unknown Completed [facility] Tetanus Toxoid, Absorbed Unknown Completed [facility] SARS-COV-2 COVID-19 PFIZER VACCINE Unknown Completed [facility] H1n1 Vaccine Unknown Completed [facility] Influenza Virus Vaccine Quad IM, Preserv and ABX Free 6 MO-64 YRS (FLUCELVAX) Unknown Completed [facility] Influenza Virus Vaccine (3+ yrs) Unknown Completed [facility] Tetanus/Diptheria Unknown Completed [facility] Influenza Virus Vaccine Quad IM 3+ YRS Unknown Completed [facility] Influenza Intradermal Vaccine Unknown Completed [facility] Influenza Virus Vaccine Unknown Completed [facility] Zoster Vaccine Recombinant Unknown Completed [facility] Tetanus Toxoid, Absorbed Unknown Completed [facility] SARS-COV-2 COVID-19 PFIZER VACCINE Unknown Completed [facility] H1n1 Vaccine Unknown Completed [facility] Influenza Virus Vaccine Quad IM, Preserv and ABX Free 6 MO-64 YRS (FLUCELVAX) Unknown Completed [facility] Tetanus/Diptheria Unknown Completed [facility] Influenza Intradermal Vaccine Unknown Completed [facility] Tetanus Toxoid, Absorbed Unknown Completed [facility] H1n1 Vaccine Unknown [facility] Vaccine Quad IM, Preserv and ABX Free 6 MO-64 YRS (FLUCELVAX) Unknown Completed [facility] Influenza Virus Vaccine (3+ yrs) Unknown Completed [facility] Influenza Virus Vaccine Quad IM 3+ YRS Unknown Completed [facility] Influenza Virus Vaccine Unknown Completed [facility] Zoster Vaccine Recombinant Unknown Completed [facility] SARS-COV-2 COVID-19 PFIZER VACCINE Unknown Completed [facility] Influenza Virus Vaccine (3+ yrs) Unknown Completed [facility] Tetanus/Diptheria Unknown Completed [facility] Influenza Virus Vaccine Quad IM 3+ YRS Unknown Completed [facility] Influenza Intradermal Vaccine Unknown Completed [facility] Influenza Virus Vaccine Unknown Completed [facility] Zoster Vaccine Recombinant Unknown Completed [facility] Tetanus Toxoid, Absorbed Unknown Completed [facility] SARS-COV-2 COVID-19 PFIZER VACCINE Unknown Completed [facility] H1n1 Vaccine Unknown Completed [facility] Influenza Virus Vaccine Quad IM, Preserv and ABX Free 6 MO-64 YRS (FLUCELVAX) Unknown Completed [facility] Influenza Virus Vaccine (3+ yrs) Unknown Completed [facility] Tetanus/Diptheria Unknown Completed [facility] Influenza Virus Vaccine Quad IM 3+ YRS Unknown Completed [facility] Influenza Intradermal Vaccine Unknown Completed [facility] Influenza Virus Vaccine Unknown Completed [facility] Zoster Vaccine Recombinant Unknown Completed [facility] Tetanus Toxoid, Absorbed Unknown Completed [facility] SARS-COV-2 COVID-19 PFIZER VACCINE Unknown Completed [facility] H1n1 Vaccine Unknown Completed [facility] Influenza Virus Vaccine Quad IM, Preserv and ABX Free 6 MO-64 YRS (FLUCELVAX) Unknown Completed [facility] Influenza Virus Vaccine (3+ yrs) Unknown Completed [facility] Tetanus/Diptheria Unknown Completed [facility] Influenza Virus Vaccine Quad IM 3+ YRS Unknown Completed [facility] Influenza Intradermal Vaccine Unknown Completed [facility] Influenza Virus Vaccine Unknown Completed [facility] Zoster Vaccine Recombinant Unknown Completed [facility] Tetanus Toxoid, Absorbed Unknown Completed [facility] SARS-COV-2 COVID-19 PFIZER VACCINE Unknown Completed [facility] H1n1 Vaccine Unknown Com[facility] Virus Vaccine Quad IM, Preserv and ABX Free 6 MO-64 YRS (FLUCELVAX) Unknown Completed [facility] Influenza Virus Vaccine (3+ yrs) Unknown Completed [facility] Tetanus/Diptheria [facility]ine Quad IM 3+ YRS Unknown Completed [facility] Influenza Intradermal Vaccine Unknown Completed [facility] Influenza Virus Vaccine Unknown Completed [facility] Zoster Vaccine Recombinant Unknown Completed [facility] Tetanus Toxoid, Absorbed Unknown Completed [facility] SARS-COV-2 COVID-19 PFIZER VACCINE Unknown Completed [facility] H1n1 Vaccine Unknown Completed [facility] Influenza Virus Vaccine Quad IM, Preserv and ABX Free 6 MO-64 YRS (FLUCELVAX) Unknown Completed [facility] Influenza Virus Vaccine (3+ yrs) Unknown Completed [facility] Tetanus/Diptheria Unknown Completed [facility] Influenza Virus Vaccine Quad IM 3+ YRS Unknown Completed [facility] Influenza Intradermal Vaccine Unknown Completed [facility] Influenza Virus Vaccine Unknown Completed [facility] Zoster Vaccine Recombinant Unknown Completed [facility] Tetanus Toxoid, Absorbed Unknown Completed [facility] SARS-COV-2 COVID-19 PFIZER VACCINE Unknown Completed [facility] H1n1 Vaccine Unknown Completed [facility] Influenza Virus Vaccine Quad IM, Preserv and ABX Free 6 MO-64 YRS (FLUCELVAX) Unknown Completed [facility] Influenza Virus Vaccine (3+ yrs) Unknown Completed [facility] Tetanus[facility]Diptheria Unknown [facility]ine Quad IM 3+ YRS Unknown Completed [facility] Influenza Intradermal Vaccine Unknown Completed [facility] Influenza Virus Vaccine Unknown Completed [facility] Zoster Vaccine Recombinant Unknown Completed [facility] Tetanus Toxoid, Absorbed Unknown Completed [facility] SARS-COV-2 COVID-19 PFIZER VACCINE Unknown Completed [facility] H1n1 Vaccine Unknown Com[facility] Influ[facility] Virus Vaccine Quad IM, Preserv and ABX Free 6 MO-64 YRS (FLUCELVAX) Unknown Completed [facility] Influenza Virus Vaccine (3+ yrs) Unknown Completed [facility] Tetanus[facility]Diptheria Unknown [facility]ine Quad IM 3+ YRS Unknown Completed [facility] Influenza Intradermal Vaccine Unknown Completed [facility] Influenza Virus Vaccine Unknown Completed [facility] Zoster Vaccine Recombinant Unknown Completed [facility] Tetanus Toxoid, Absorbed Unknown Completed [facility] SARS-COV-2 COVID-19 PFIZER VACCINE Unknown Completed [facility] H1n1 Vaccine Unknown Completed [facility] Influenza Virus Vaccine Quad IM, Preserv and ABX Free 6 MO-64 YRS (FLUCELVAX) Unknown Completed [facility] Influenza Virus Vaccine (3+ yrs) Unknown Completed [facility] Tetanus/Diptheria Unknown Completed [facility] Influenza Virus Vaccine Quad IM 3+ YRS Unknown Completed [facility] Influenza Intradermal Vaccine Unknown Completed [facility] Influenza Virus Vaccine Unknown Completed [facility] Zoster Vaccine Recombinant Unknown Completed [facility] Tetanus Toxoid, Absorbed Unknown Completed [facility] SARS-COV-2 COVID-19 PFIZER VACCINE Unknown Completed [facility] H1n1 Vaccine Unknown Completed [facility] Influenza Virus Vaccine Quad IM, Preserv and ABX Free 6 MO-64 YRS (FLUCELVAX) Unknown Completed [facility] Influenza Virus Vaccine (3+ yrs) Unknown Completed [facility] Tetanus/Diptheria Unknown Completed [facility] Influenza Virus Vaccine Quad IM 3+ YRS Unknown Completed [facility] Influenza Intradermal Vaccine Unknown Completed [facility] Influenza Virus Vaccine Unknown Completed [facility] Zoster Vaccine Recombinant Unknown Completed [facility] Tetanus Toxoid, Absorbed Unknown Completed [facility] SARS-COV-2 COVID-19 PFIZER VACCINE Unknown Completed [facility] H1n1 Vaccine Unknown Completed [facility] Influ[facility] Virus Vaccine Quad IM, Preserv and ABX Free 6 MO-64 YRS (FLUCELVAX) Unknown Completed [facility] Influenza Virus Vaccine (3+ yrs) Unknown Completed [facility] Tetanus/Diptheria Unknown Completed [facility] Influenza Virus Vaccine Quad IM 3+ YRS Unknown Completed [facility] Influenza Intradermal Vaccine Unknown Completed [facility] Influenza Virus Vaccine Unknown Completed [facility] Zoster Vaccine Recombinant Unknown Completed [facility] Tetanus Toxoid, Absorbed Unknown Completed [facility] SARS-COV-2 COVID-19 PFIZER VACCINE Unknown Completed [facility] H1n1 Vaccine Unknown Completed [facility] Influenza Virus Vaccine Quad IM, Preserv and ABX Free 6 MO-64 YRS (FLUCELVAX) Unknown Completed [facility] Influenza Virus Vaccine (3+ yrs) Unknown Completed [facility] Tetanus/Diptheria Unknown Completed [facility] Influenza Virus Vaccine Quad IM 3+ YRS Unknown Completed [facility] Influenza Intradermal Vaccine Unknown Completed [facility] Influenza Virus Vaccine Unknown Completed [facility] Zoster Vaccine Recombinant Unknown Completed [facility] Tetanus Toxoid, Absorbed Unknown Completed [facility] SARS-COV-2 COVID-19 PFIZER VACCINE Unknown Completed [facility] H1n1 Vaccine Unknown Completed [facility] Influenza Virus Vaccine Quad IM, Preserv and ABX Free 6 MO-64 YRS (FLUCELVAX) Unknown Completed [facility] Influenza Virus Vaccine (3+ yrs) Unknown Completed [facility] Tetanus/Diptheria Unknown [facility] Influenza Virus Vaccine Quad IM 3+ YRS Unknown Completed [facility] Influenza Intradermal Vaccine Unknown Completed [facility] Influenza Virus Vaccine Unknown Completed [facility] Zoster Vaccine Recombinant Unknown Completed [facility] Tetanus Toxoid, Absorbed Unknown Completed [facility] SARS-COV-2 COVID-19 PFIZER VACCINE Unknown Completed [facility] H1n1 Vaccine Unknown Completed [facility] Influenza Virus Vaccine Quad IM, Preserv and ABX Free 6 MO-64 YRS (FLUCELVAX) Unknown Completed [facility] Influenza Virus Vaccine (3+ yrs) Unknown Completed [facility] Tetanus/Diptheria Unknown Completed [facility] Influenza Virus Vaccine Quad IM 3+ YRS Unknown Completed [facility] Influenza Intradermal Vaccine Unknown Completed [facility] Influenza Virus Vaccine Unknown Completed [facility] Zoster Vaccine Recombinant Unknown Completed [facility] Tetanus Toxoid, Absorbed Unknown Completed [facility] SARS-COV-2 COVID-19 PFIZER VACCINE Unknown Completed [facility] H1n1 Vaccine Unknown Com[facility] Virus Vaccine Quad IM, Preserv and ABX Free 6 MO-64 YRS (FLUCELVAX) Unknown Completed [facility] Influenza Virus Vaccine (3+ yrs) Unknown Completed [facility] Tetanus/Diptheria Unknown Completed [facility] Influenza Virus Vaccine Quad IM 3+ YRS Unknown Completed [facility] Influenza Intradermal Vaccine Unknown Completed [facility] Influenza Virus Vaccine Unknown Completed [facility] Zoster Vaccine Recombinant Unknown Completed [facility] Tetanus Toxoid, Absorbed Unknown Completed [facility] SARS-COV-2 COVID-19 PFIZER VACCINE Unknown Completed [facility] H1n1 Vaccine Unknown Completed [facility] Influ[facility] Virus Vaccine Quad IM, Preserv and ABX Free 6 MO-64 YRS (FLUCELVAX) Unknown Completed [facility] Influenza Virus Vaccine (3+ yrs) Unknown Completed [facility] Tetanus/Diptheria Unknown Completed [facility] Influenza Virus Vaccine Quad IM 3+ YRS Unknown Completed [facility] Influenza Intradermal Vaccine Unknown Completed [facility] Influenza Virus Vaccine Unknown Completed [facility] Zoster Vaccine Recombinant Unknown Completed [facility] Tetanus Toxoid, Absorbed Unknown Completed [facility] SARS-COV-2 COVID-19 PFIZER VACCINE Unknown Completed [facility] H1n1 Vaccine Unknown Completed [facility] Influenza Virus Vaccine Quad IM, Preserv and ABX Free 6 MO-64 YRS (FLUCELVAX) Unknown Completed [facility] Influenza Virus Vaccine (3+ yrs) Unknown Completed [facility] Tetanus/Diptheria Unknown Completed [facility] Influenza Virus Vaccine Quad IM 3+ YRS Unknown Completed [facility] Influenza Intradermal Vaccine Unknown Completed [facility] Influenza Virus Vaccine Unknown Completed [facility] Zoster Vaccine Recombinant Unknown Completed [facility] Tetanus Toxoid, Absorbed Unknown Completed [facility] SARS-COV-2 COVID-19 PFIZER VACCINE Unknown Completed [facility] H1n1 Vaccine Unknown Com[facility] Influ[facility] Virus Vaccine Quad IM, Preserv and ABX Free 6 MO-64 YRS (FLUCELVAX) Unknown Completed [facility] Influenza Virus Vaccine (3+ yrs) Unknown Completed [facility] Tetanus/Diptheria Unknown Completed [facility] Influenza Virus Vaccine Quad IM 3+ YRS Unknown Completed [facility] Influenza Intradermal Vaccine Unknown Completed [facility] Influenza Virus Vaccine Unknown Completed [facility] Zoster Vaccine Recombinant Unknown Completed [facility] Tetanus Toxoid, Absorbed Unknown Completed [facility] SARS-COV-2 COVID-19 PFIZER VACCINE Unknown Completed [facility] H1n1 Vaccine Unknown Completed [facility] Influenza Virus Vaccine Quad IM, Preserv and ABX Free 6 MO-64 YRS (FLUCELVAX) Unknown Completed [facility] Influenza Virus Vaccine (3+ yrs) Unknown Completed [facility] Tetanus/Diptheria Unknown Completed [facility] Influenza Virus Vaccine Quad IM 3+ YRS Unknown Completed [facility] Influenza Intradermal Vaccine Unknown Completed [facility] Influenza Virus Vaccine Unknown Completed [facility] Zoster Vaccine Recombinant Unknown Completed [facility] Tetanus Toxoid, Absorbed Unknown Completed [facility] SARS-COV-2 COVID-19 PFIZER VACCINE Unknown Completed [facility] H1n1 Vaccine Unknown Completed [facility] Influenza Virus Vaccine Quad IM, Preserv and ABX Free 6 MO-64 YRS (FLUCELVAX) Unknown Completed [facility] Influenza Virus Vaccine (3+ yrs) Unknown Completed [facility] Tetanus/Diptheria Unknown Completed [facility] Influenza Virus Vaccine Quad IM 3+ YRS Unknown Completed [facility] Influenza Intradermal Vaccine Unknown Completed [facility] Influenza Virus Vaccine Unknown Completed [facility] Zoster Vaccine Recombinant Unknown Completed [facility] Tetanus Toxoid, Absorbed Unknown Completed [facility] SARS-COV-2 COVID-19 PFIZER VACCINE Unknown Completed [facility] H1n1 Vaccine Unknown [facility] Vaccine Quad IM, Preserv and ABX Free 6 MO-64 YRS (FLUCELVAX) Unknown Completed [facility] Influenza Virus Vaccine (3+ yrs) Unknown Completed [facility] Tetanus/Diptheria Unknown Completed [facility] Influenza Virus Vaccine Quad IM 3+ YRS Unknown Completed [facility] Influenza Intradermal Vaccine Unknown Completed [facility] Influenza Virus Vaccine Unknown Completed [facility] Zoster Vaccine Recombinant Unknown Completed [facility] Tetanus Toxoid, Absorbed Unknown Completed [facility] SARS-COV-2 COVID-19 PFIZER VACCINE Unknown Completed [facility] H1n1 Vaccine Unknown Completed [facility] Influenza Virus Vaccine Quad IM, Preserv and ABX Free 6 MO-64 YRS (FLUCELVAX) Unknown Completed [facility] Influenza Virus Vaccine (3+ yrs) Unknown Completed [facility] Tetanus/Diptheria Unknown Completed [facility] Influenza Virus Vaccine Quad IM 3+ YRS Unknown Completed [facility] Influenza Intradermal Vaccine Unknown Completed [facility] Influenza Virus Vaccine Unknown Completed [facility] Zoster Vaccine Recombinant Unknown Completed [facility] Tetanus Toxoid, Absorbed Unknown Completed [facility] SARS-COV-2 COVID-19 PFIZER VACCINE Unknown Completed [facility] H1n1 Vaccine Unknown Completed [facility] Influenza Virus Vaccine Quad IM, Preserv and ABX Free 6 MO-64 YRS (FLUCELVAX) Unknown Completed [facility] Influenza Virus Vaccine (3+ yrs) Unknown Completed [facility] Tetanus/Diptheria Unknown Completed [facility] Influenza Virus Vaccine Quad IM 3+ YRS Unknown Completed [facility] Influenza Intradermal Vaccine Unknown Completed [facility] Influenza Virus Vaccine Unknown Completed [facility] Zoster Vaccine Recombinant Unknown Completed [facility] Tetanus Toxoid, Absorbed Unknown Completed [facility] SARS-COV-2 COVID-19 PFIZER VACCINE Unknown Completed [facility] H1n1 Vaccine Unknown Completed [facility] Influenza Virus Vaccine Quad IM, Preserv and ABX Free 6 MO-64 YRS (FLUCELVAX) Unknown Completed [facility] Influenza Virus Vaccine (3+ yrs) Unknown Completed [facility] Tetanus/Diptheria Unknown Completed [facility] Influenza Virus Vaccine Quad IM 3+ YRS Unknown Completed [facility] Influenza Intradermal Vaccine Unknown Completed [facility] Influenza Virus Vaccine Unknown Completed [facility] Zoster Vaccine Recombinant Unknown Completed [facility] Tetanus Toxoid, Absorbed Unknown Completed [facility] SARS-COV-2 COVID-19 PFIZER VACCINE Unknown Completed [facility] H1n1 Vaccine Unknown Completed [facility] Virus Vaccine Quad IM, Preserv and ABX Free 6 MO-64 YRS (FLUCELVAX) Unknown Completed [facility] Influenza Virus Vaccine (3+ yrs) Unknown Completed [facility] Tetanus/Diptheria Unknown Completed [facility] Influenza Virus Vaccine Quad IM 3+ YRS Unknown Completed [facility] Influenza Intradermal Vaccine Unknown Completed [facility] Influenza Virus Vaccine Unknown Completed [facility] Zoster Vaccine Recombinant Unknown Completed [facility] Tetanus Toxoid, Absorbed Unknown Completed [facility] SARS-COV-2 COVID-19 PFIZER VACCINE Unknown Completed [facility] H1n1 Vaccine Unknown Completed [facility] Influenza Virus Vaccine Quad IM, Preserv and ABX Free 6 MO-64 YRS (FLUCELVAX) Unknown Completed [facility] Influenza Virus Vaccine (3+ yrs) Unknown Completed [facility] Tetanus/Diptheria Unknown Completed [facility] Influenza Virus Vaccine Quad IM 3+ YRS Unknown Completed [facility] Influenza Intradermal Vaccine Unknown Completed [facility] Influenza Virus Vaccine Unknown Completed [facility] Zoster Vaccine Recombinant Unknown Completed [facility] Tetanus Toxoid, Absorbed Unknown Completed [facility] SARS-COV-2 COVID-19 PFIZER VACCINE Unknown Completed [facility] H1n1 Vaccine Unknown Completed [facility] Influenza Virus Vaccine Quad IM, Preserv and ABX Free 6 MO-64 YRS (FLUCELVAX) Unknown Completed [facility] Influenza Virus Vaccine (3+ yrs) Unknown Completed [facility] Tetanus/Diptheria Unknown Completed [facility] Influenza Virus Vaccine Quad IM 3+ YRS Unknown Completed [facility] Influenza Intradermal Vaccine Unknown Completed [facility] Influenza Virus Vaccine Unknown Completed [facility] Zoster Vaccine Recombinant Unknown Completed [facility] Tetanus Toxoid, Absorbed Unknown Completed [facility] SARS-COV-2 COVID-19 PFIZER VACCINE Unknown Completed [facility] H1n1 Vaccine Unknown Com[facility] Virus Vaccine Quad IM, Preserv and ABX Free 6 MO-64 YRS (FLUCELVAX) Unknown Completed [facility] Influenza Virus Vaccine (3+ yrs) Unknown Completed [facility]anus/[facility]heria [facility]ine Quad [facility] 3+ YRS Unknown Completed [facility] Influenza Intradermal Vaccine Unknown Completed [facility] Influenza Virus Vaccine Unknown Completed [facility] Zoster Vaccine Recombinant Unknown Completed [facility] Tetanus Toxoid, Absorbed Unknown Completed [facility] SARS-COV-2 COVID-19 PFIZER VACCINE Unknown Completed [facility] H1n1 Vaccine Unknown Completed [facility] Influenza Virus Vaccine Quad IM, Preserv and ABX Free 6 MO-64 YRS (FLUCELVAX) Unknown Completed [facility] Influenza Virus Vaccine (3+ yrs) Unknown Completed [facility] Tetanus/Diptheria Unknown Completed [facility] Influenza Virus Vaccine Quad IM 3+ YRS Unknown Completed [facility] Influenza Intradermal Vaccine Unknown Completed [facility] Influenza Virus Vaccine Unknown Completed [facility] Zoster Vaccine Recombinant Unknown Completed [facility] Tetanus Toxoid, Absorbed Unknown Completed [facility] SARS-COV-2 COVID-19 PFIZER VACCINE Unknown Completed [facility] H1n1 Vaccine Unknown Completed [facility] Influenza Virus Vaccine Quad IM, Preserv and ABX Free 6 MO-64 YRS (FLUCELVAX) Unknown Completed [facility] Influenza Virus Vaccine (3+ yrs) Unknown Completed [facility] Tetanus/Diptheria Unknown Completed [facility] Influenza Virus Vaccine Quad IM 3+ YRS Unknown Completed [facility] Influenza Intradermal Vaccine Unknown Completed [facility] Influenza Virus Vaccine Unknown Completed [facility] Zoster Vaccine Recombinant Unknown Completed [facility] Tetanus Toxoid, Absorbed Unknown Completed [facility] SARS-COV-2 COVID-19 PFIZER VACCINE Unknown Completed [facility] H1n1 Vaccine Unknown Com[facility] Virus Vaccine Quad IM, Preserv and ABX Free 6 MO-64 YRS (FLUCELVAX) Unknown Completed [facility] Influenza Virus Vaccine (3+ yrs) Unknown Completed [facility] Tetanus/Diptheria Unknown Completed [facility] Influenza Virus Vaccine Quad IM 3+ YRS Unknown Completed [facility] Influenza Intradermal Vaccine Unknown Completed [facility] Influenza Virus Vaccine Unknown Completed [facility] Zoster Vaccine Recombinant Unknown Completed [facility] Tetanus Toxoid, Absorbed Unknown Completed [facility] SARS-COV-2 COVID-19 PFIZER VACCINE Unknown Completed [facility] H1n1 Vaccine Unknown Completed [facility] Influenza Virus Vaccine Quad IM, Preserv and ABX Free 6 MO-64 YRS (FLUCELVAX) Unknown Completed [facility] Influenza Virus Vaccine (3+ yrs) Unknown Completed [facility] Tetanus/Diptheria Unknown Completed [facility] Influenza Virus Vaccine Quad IM 3+ YRS Unknown Completed [facility] Influenza Intradermal Vaccine Unknown Completed [facility] Influenza Virus Vaccine Unknown Completed [facility] Zoster Vaccine Recombinant Unknown Completed [facility] Tetanus Toxoid, Absorbed Unknown Completed [facility] SARS-COV-2 COVID-19 PFIZER VACCINE Unknown Completed [facility] H1n1 Vaccine Unknown Completed [facility] Influenza Virus Vaccine Quad IM, Preserv and ABX Free 6 MO-64 YRS (FLUCELVAX) Unknown Completed [facility] Influenza Virus Vaccine (3+ yrs) Unknown Completed [facility] Tetanus/Diptheria Unknown Completed [facility] Influenza Virus Vaccine Quad IM 3+ YRS Unknown Completed [facility] Influenza Intradermal Vaccine Unknown Completed [facility] Influenza Virus Vaccine Unknown Completed [facility] Zoster Vaccine Recombinant Unknown Completed [facility] Tetanus Toxoid, Absorbed Unknown Completed [facility] SARS-COV-2 COVID-19 PFIZER VACCINE Unknown Completed [facility] H1n1 Vaccine Unknown Completed [facility] Influenza Virus Vaccine Quad IM, Preserv and ABX Free 6 MO-64 YRS (FLUCELVAX) Unknown Completed [facility] Influenza Virus Vaccine (3+ yrs) Unknown Completed [facility]anus/Diptheria [facility]ine [facility] 3+ YRS Unknown Completed [facility] Influenza Intradermal Vaccine Unknown Completed [facility] Influenza Virus Vaccine Unknown Completed [facility] Zoster Vaccine Recombinant Unknown Completed [facility] Tetanus Toxoid, Absorbed Unknown Completed [facility] SARS-COV-2 COVID-19 PFIZER VACCINE Unknown Completed [facility] H1n1 Vaccine Unknown Com[facility] Influ[facility] Virus Vaccine Quad IM, Preserv and ABX Free 6 MO-64 YRS (FLUCELVAX) Unknown Completed [facility] Influenza Virus Vaccine (3+ yrs) Unknown Completed [facility] Tetanus/Diptheria Unknown Completed [facility] Influenza Virus Vaccine Quad IM 3+ YRS Unknown Completed [facility] Influenza Intradermal Vaccine Unknown Completed [facility] Influenza Virus Vaccine Unknown Completed [facility] Zoster Vaccine Recombinant Unknown Completed [facility] Tetanus Toxoid, Absorbed Unknown Completed [facility] SARS-COV-2 COVID-19 PFIZER VACCINE Unknown Completed [facility] H1n1 Vaccine Unknown Completed [facility] Influenza Virus Vaccine Quad IM, Preserv and ABX Free 6 MO-64 YRS (FLUCELVAX) Unknown Completed [facility] Influenza Virus Vaccine (3+ yrs) Unknown Completed [facility] Tetanus/Diptheria Unknown Completed [facility] Influenza Virus Vaccine Quad IM 3+ YRS Unknown Completed [facility] Influenza Intradermal Vaccine Unknown Completed [facility] Influenza Virus Vaccine Unknown Completed [facility] Zoster Vaccine Recombinant Unknown Completed [facility] Tetanus Toxoid, Absorbed Unknown Completed [facility] SARS-COV-2 COVID-19 PFIZER VACCINE Unknown Completed [facility] H1n1 Vaccine Unknown Completed [facility] Influenza Virus Vaccine Quad IM, Preserv and ABX Free 6 MO-64 YRS (FLUCELVAX) Unknown Completed [facility] Influenza Virus Vaccine (3+ yrs) Unknown Completed [facility] Tetanus/Diptheria Unknown Completed [facility] Influenza Virus Vaccine Quad IM 3+ YRS Unknown Completed [facility] Influenza Intradermal Vaccine Unknown Completed [facility] Influenza Virus Vaccine Unknown Completed [facility] Zoster Vaccine Recombinant Unknown Completed [facility] Tetanus Toxoid, Absorbed Unknown Completed [facility] SARS-COV-2 COVID-19 PFIZER VACCINE Unknown Completed [facility] H1n1 Vaccine Unknown Completed [facility] Influenza Virus Vaccine Quad IM, Preserv and ABX Free 6 MO-64 YRS (FLUCELVAX) Unknown Completed [facility] Influenza Virus Vaccine (3+ yrs) Unknown Completed [facility] Tetanus/Diptheria Unknown [facility]ine Quad IM 3+ YRS Unknown Completed [facility] Influenza Intradermal Vaccine Unknown Completed [facility] Influenza Virus Vaccine Unknown Completed [facility] Zoster Vaccine Recombinant Unknown Completed [facility] Tetanus Toxoid, Absorbed Unknown Completed [facility] SARS-COV-2 COVID-19 PFIZER VACCINE Unknown Completed [facility] H1n1 Vaccine Unknown Completed [facility] Influenza Virus Vaccine Quad IM, Preserv and ABX Free 6 MO-64 YRS (FLUCELVAX) Unknown Completed [facility] Influenza Virus Vaccine (3+ yrs) Unknown Completed [facility] Tetanus/Diptheria Unknown Completed [facility] Influenza Virus Vaccine Quad IM 3+ YRS Unknown Completed [facility] Influenza Intradermal Vaccine Unknown Completed [facility] Influenza Virus Vaccine Unknown Completed [facility] Zoster Vaccine Recombinant Unknown Completed [facility] Tetanus Toxoid, Absorbed Unknown Completed [facility] SARS-COV-2 COVID-19 PFIZER VACCINE Unknown Completed [facility] H1n1 Vaccine Unknown Completed [facility] Influenza Virus Vaccine Quad IM, Preserv and ABX Free 6 MO-64 YRS (FLUCELVAX) Unknown Completed [facility] Influenza Virus Vaccine (3+ yrs) Unknown Completed [facility] Tetanus/Diptheria Unknown [facility]ine Quad IM 3+ YRS Unknown Completed [facility] Influenza Intradermal Vaccine Unknown Completed [facility] Influenza Virus Vaccine Unknown Completed [facility] Zoster Vaccine Recombinant Unknown Completed [facility] Tetanus Toxoid, Absorbed Unknown Completed [facility] SARS-COV-2 COVID-19 PFIZER VACCINE Unknown Completed [facility] H1n1 Vaccine Unknown Completed [facility] Influenza Virus Vaccine Quad IM, Preserv and ABX Free 6 MO-64 YRS (FLUCELVAX) Unknown Completed [facility] Influenza Virus Vaccine (3+ yrs) Unknown Completed [facility] Tetanus/Diptheria Unknown [facility]ine Quad IM 3+ YRS Unknown Completed [facility] Influenza Intradermal Vaccine Unknown Completed [facility] Influenza Virus Vaccine Unknown Completed [facility] Zoster Vaccine Recombinant Unknown Completed [facility] Tetanus Toxoid, Absorbed Unknown Completed [facility] SARS-COV-2 COVID-19 PFIZER VACCINE Unknown Completed [facility] H1n1 Vaccine Unknown Completed [facility] Influenza Virus Vaccine Quad IM, Preserv and ABX Free 6 MO-64 YRS (FLUCELVAX) Unknown Completed [facility] Vital Signs Vital Name Observation Time Observation Value Comments S ource Systolic blood pressure 2024-07-12 23:30:00 112 mm[Hg] [facility] Diastolic blood pressure 2024-07-12 23:30:00 69 mm[Hg] [facility] Heart rate 2024-07-12 23:30:00 67 /min [facility] Body temperature 2024-07-12 23:30:00 37.11 Iveth [facility] Respiratory rate 2024-07-12 23:30:00 19 /min [facility] Body height 2024-07-12 23:30:00 170.2 cm [facility] Body weight 2024-07-12 23:30:00 80.287 kg [facility] BMI 2024-07-12 23:30:00 27.72 kg/m2 [facility] Oxygen saturation in Arterial blood by Pulse oximetry 2024-07-12 23:30:00 99 /min [facility] Body weight 2024-07-07 19:59:00 80.74 kg [facility] BMI 2024-07-07 19:59:00 32.56 kg/m2 [facility] Heart rate 2024-06-01 01:21:00 71 /min [facility] Body temperature 2024-06-01 01:21:00 36.11 Iveth [facility] Respiratory rate 2024-06-01 01:21:00 15 /min [facility] Oxygen saturation in Arterial blood by Pulse oximetry 2024-06-01 01:21:00 96 /min [facility] Systolic blood pressure 2024-06-01 01:00:00 111 mm[Hg] [facility] Diastolic blood pressure 2024-06-01 01:00:00 70 mm[Hg] [facility] Body height 2024-05-31 23:38:00 157.5 cm [facility] Body weight 2024-05-31 23:38:00 80.287 kg [facility] BMI 2024-05-31 23:38:00 32.37 kg/m2 [facility] Systolic blood pressure 2024-05-26 20:48:00 140 mm[Hg] [facility] Diastolic blood pressure 2024-05-26 20:48:00 88 mm[Hg] [facility] Heart rate 2024-05-26 20:48:00 75 /min [facility] Body temperature 2024-05-26 20:48:00 37 Iveth [facility] Respiratory rate 2024-05-26 20:48:00 20 /min [facility] Body height 2024-05-26 20:48:00 157.5 cm [facility] Body weight 2024-05-26 20:48:00 80.287 kg [facility] BMI 2024-05-26 20:48:00 32.37 kg/m2 [facility] Oxygen saturation in Arterial blood by Pulse oximetry 2024-05-26 20:48:00 98 /min [facility] Systolic blood pressure 2024-03-13 17:42:00 126 mm[Hg] [facility] Diastolic blood pressure 2024-03-13 17:42:00 72 mm[Hg] [facility] Heart rate 2024-03-13 17:42:00 67 /min [facility] Body height 2024-03-13 17:42:00 165.1 cm [facility] Oxygen saturation in Arterial blood by Pulse oximetry 2024-03-13 17:42:00 95 /min [facility] Systolic blood pressure 2024-02-19 20:40:00 97 mm[Hg] [facility] Diastolic blood pressure 2024-02-19 20:40:00 64 mm[Hg] [facility] Heart rate 2024-02-19 20:40:00 64 /min Un[facility] Respiratory rate 2024-02-19 20:40:00 18 /min [facility] Body height 2024-02-19 20:40:00 162.6 cm [facility] Oxygen saturation in Arterial blood by Pulse oximetry 2024-02-19 20:40:00 95 /min [facility] Systolic blood pressure 2024-01-10 18:25:00 101 mm[Hg] [facility] Diastolic blood pressure 2024-01-10 18:25:00 60 mm[Hg] [facility] Heart rate 2024-01-10 18:25:00 77 /min [facility] Body temperature 2024-01-10 18:25:00 35.94 Iveth [facility] Respiratory rate 2024-01-10 18:25:00 18 /min [facility] Body height 2024-01-10 18:25:00 162.6 cm [facility] Oxygen saturation in Arterial blood by Pulse oximetry 2024-01-10 18:25:00 98 /min [facility] Systolic blood pressure 2023-12-13 19:37:00 111 mm[Hg] [facility] Diastolic blood pressure 2023-12-13 19:37:00 76 mm[Hg] [facility] Heart rate 2023-12-13 19:37:00 71 /min [facility] Body temperature 2023-12-13 19:37:00 36.44 Iveth [facility] Respiratory rate 2023-12-13 19:37:00 18 /min [facility] Body height 2023-12-13 19:37:00 165.1 cm [facility] in Arterial blood by Pulse oximetry 2023-12-13 19:37:00 97 /min [facility] Systolic blood pressure 2023-11-01 20:38:00 136 mm[Hg] [facility] Diastolic blood pressure 2023-11-01 20:38:00 83 mm[Hg] [facility] Heart rate 2023-11-01 20:38:00 93 /min [facility] Body height 2023-11-01 20:38:00 165.1 cm [facility] Body weight 2023-11-01 20:38:00 84.369 kg [facility] BMI 2023-11-01 20:38:00 30.95 kg/m2 [facility] Oxygen saturation in Arterial blood by Pulse oximetry 2023-11-01 20:38:00 97 /min [facility] Systolic blood pressure 2023-11-01 18:25:00 107 mm[Hg] [facility] Diastolic blood pressure 2023-11-01 18:25:00 71 mm[Hg] [facility] Heart rate 2023-11-01 18:25:00 55 /min [facility] Body height 2023-11-01 18:25:00 165.1 cm [facility] Body weight 2023-11-01 18:25:00 83.915 kg [facility] BMI 2023-11-01 18:25:00 30.79 kg/m2 [facility] Oxygen saturation in Arterial blood by Pulse oximetry 2023-11-01 18:25:00 94 /min [facility] Systolic blood pressure 2023-05-20 17:37:00 109 mm[Hg] [facility] Diastolic blood pressure 2023-05-20 17:37:00 71 mm[Hg] [facility] Heart rate 2023-05-20 17:37:00 76 /min [facility] Respiratory rate 2023-05-20 17:37:00 18 /min [facility] Body height 2023-05-20 17:37:00 162.6 cm [facility] Body weight 2023-05-20 17:37:00 81.693 kg [facility] BMI 2023-05-20 17:37:00 30.91 kg/m2 [facility] Systolic blood pressure 2023-05-13 19:29:00 100 mm[Hg] [facility] Diastolic blood pressure 2023-05-13 19:29:00 69 mm[Hg] [facility] Heart rate 2023-05-13 19:29:00 88 /min [facility] Body temperature 2023-05-13 19:29:00 36.78 Iveth [facility] Body height 2023-05-13 19:29:00 162.6 cm [facility] Body weight 2023-05-13 19:29:00 80.604 kg [facility] BMI 2023-05-13 19:29:00 30.50 kg/m2 [facility] Oxygen saturation in Arterial blood by Pulse oximetry 2023-05-13 19:29:00 94 /min [facility] Systolic blood pressure 2022-11-19 18:35:00 115 mm[Hg] [facility] Diastolic blood pressure 2022-11-19 18:35:00 72 mm[Hg] [facility] Heart rate 2022-11-19 18:35:00 61 /min [facility] Body height 2022-11-19 18:35:00 162.6 cm [facility] Body weight 2022-11-19 18:35:00 80.786 kg [facility] BMI 2022-11-19 18:35:00 30.57 kg/m2 [facility] Oxygen saturation in Arterial blood by Pulse oximetry 2022-11-19 18:35:00 97 /min [facility] Systolic blood pressure 2022-11-15 19:32:00 104 mm[Hg] [facility] Diastolic blood pressure 2022-11-15 19:32:00 67 mm[Hg] [facility] Heart rate 2022-11-15 19:32:00 67 /min [facility] Body temperature 2022-11-15 19:32:00 36.44 Iveth [facility] Respiratory rate 2022-11-15 19:32:00 18 /min [facility] Body height 2022-11-15 19:32:00 162.6 cm [facility] Body weight 2022-11-15 19:32:00 83.915 kg [facility] BMI 2022-11-15 19:32:00 31.76 kg/m2 [facility] Oxygen saturation in Arterial blood by Pulse oximetry 2022-11-15 19:32:00 96 /min [facility] Systolic blood pressure 2022-10-30 16:54:00 128 mm[Hg] [facility] Diastolic blood pressure 2022-10-30 16:54:00 75 mm[Hg] [facility] Heart rate 2022-10-30 16:54:00 82 /min [facility] Body temperature 2022-10-30 16:54:00 36.17 Iveth [facility] Respiratory rate 2022-10-30 16:54:00 18 /min [facility] Oxygen saturation in Arterial blood by Pulse oximetry 2022-10-30 16:54:00 94 /min [facility] Body weight 2022-10-30 08:35:00 84.46 kg [facility] BMI 2022-10-30 08:35:00 30.99 kg/m2 [facility] Body height 2022-10-28 01:00:00 165.1 cm [facility] Systolic blood pressure 2022-07-20 17:06:00 110 mm[Hg] [facility] o [facility] Diastolic blood pressure 2022-07-20 17:06:00 74 mm[Hg] [facility] Heart rate 2022-07-20 17:06:00 79 /min [facility] Body height 2022-07-20 17:06:00 160 cm [facility] Body weight 2022-07-20 17:06:00 83.915 kg [facility] BMI 2022-07-20 17:06:00 32.77 kg/m2 [facility] Oxygen saturation in Arterial blood by Pulse oximetry 2022-07-20 17:06:00 94 /min [facility] Systolic blood pressure 2022-06-22 20:15:00 103 mm[Hg] [facility] Diastolic blood pressure 2022-06-22 20:15:00 71 mm[Hg] University [facility] Heart rate 2022-06-22 20:15:00 77 /min [facility]ive [facility] Body height 2022-06-22 20:15:00 160 cm [facility] Body weight 2022-06-22 20:15:00 81.647 kg Univ [facility] BMI 2022-06-22 20:15:00 31.89 kg/m2 [facility] Oxygen saturation in Arterial blood by Pulse oximetry 2022-06-22 20:15:00 93 /min [facility] Systolic blood pressure 2022-06-21 19:27:00 118 mm[Hg] [facility] Diastolic blood pressure 2022-06-21 19:27:00 79 mm[Hg] [facility] Heart rate 2022-06-21 19:27:00 77 /min [facility] Body weight 2022-06-21 19:27:00 83.915 kg [facility] BMI 2022-06-21 19:27:00 32.77 kg/m2 [facility] Oxygen saturation in Arterial blood by Pulse oximetry 2022-06-21 19:27:00 94 /min [facility] Systolic blood pressure 2022-04-20 18:28:00 125 mm[Hg] [facility] Diastolic blood pressure 2022-04-20 18:28:00 70 mm[Hg] [facility] Heart rate 2022-04-20 18:28:00 78 /min [facility] Body temperature 2022-04-20 18:28:00 36.94 Iveth [facility] Respiratory rate 2022-04-20 18:28:00 18 /min [facility] Body height 2022-04-20 18:28:00 160 cm [facility] Body weight 2022-04-20 18:28:00 82.101 kg [facility] BMI 2022-04-20 18:28:00 32.06 kg/m2 [facility] Oxygen saturation in Arterial blood by Pulse oximetry 2022-04-20 18:28:00 97 /min [facility] Systolic blood pressure 2022-02-12 19:04:00 108 mm[Hg] [facility] Diastolic blood pressure 2022-02-12 19:04:00 62 mm[Hg] [facility] Heart rate 2022-02-12 19:04:00 76 /min [facility] Body weight 2022-02-12 19:04:00 83.915 kg [facility] BMI 2022-02-12 19:04:00 31.76 kg/m2 [facility] Procedures Procedure Date / Time Performed Performing Clinician Source URINALYSIS 2024-06-01 00:30:00 Roman Kathleen [facility] PROSTATIC SPECIFIC ANTIGEN 2024-05-27 17:03:00 [facility]ABOLIC PANEL (NA, K, CL, CO2, GLUCOSE, BUN, CREATININE, CA) 2024-05-27 17:03:00 Mac Rodríguez [facility] POCT URINALYSIS AUTO 2024-05-26 20:53:00 Esau Rodríguez [facility] POCT URINALYSIS 2023-11-01 21:09:00 Yvette Morin [facility] URINE CULTURE 2023-11-01 21:07:00 Yvette Morin [facility] FLU VACC ([id number]), 6 MO-64 YRS, .5ML, IM, QUAD (FLUCELVAX) 2023-05-21 18:49:43 Doctor Unassigned, [place] [facility] DME/SUPPLY JUSTIFICATION 2023-04-11 05:01:00 Doc tor Unassigned, [place] [facility] PATIENT FINANCIAL POLICY 2022-11-15 19:01:00 Doctor Unassigned, [place] [facility] BASIC METABOLIC PANEL (NA, K, CL, CO2, GLUCOSE, BUN, CREATININE, CA) 2022-10-30 09:35:00 Louise Frederick [facility] CBC WITH DIFF 2022-10-30 09:35:00 Louise Frederick [facility] VANCOMYCIN TROUGH 2022-10-29 18:31:00 Victorina Summers [facility] MAGNESIUM 2022-10-29 09:50:00 Salvador Riley [facility] BASIC METABOLIC PANEL (NA, K, CL, CO2, GLUCOSE, BUN, CREATININE, CA) 2022-10-29 09:50:00 Salvador Riley [facility] CBC WITH DIFF 2022-10-29 09:50:00 Deepali iHghtower [facility] WOUND CULTURE 2022-10-28 19:39:00 Pat Leon [facility] CBC WITH DIFF 2022-10-28 10:20:00 Salvador Riley [facility] CT HUMERUS LEFT W CONTRAST 2022-10-28 04:40:18 Louise Peter [facility] BASIC METABOLIC PANEL (NA, K, CL, CO2, GLUCOSE, BUN, CREATININE, CA) 2022-10-28 01:31:00 Louise Peter [facility] CBC WITH DIFF 2022-10-28 01:31:00 Louise Peter Unive [facility] CONSENT/REFUSAL FOR DIAGNOSIS AND TREATMENT 2022-10-28 00:49:47 Doctor Unassigned, [place] [facility] VACCINATIONS - CONSENTS, ELIGIBILITY, HISTORY 2022-07-31 06:01:00 Doctor Unassigned, [place] [facility] CT HEAD WO CONTRAST 2022-07-11 19:10:09 Ruth Morin [facility] Encounters Start Date/Time End Date/Time Encounter Type Admission Type Attending Clinicians Care Facility Care Department Encounter ID Source 2024-10-30 14:20:00 2024-10-30 14:20:00 Outpatient JORDI BARRY HOWARD [facility] [id number] [facility] 2024-07-12 17:34:00 2024-07-12 20:35:00 Emergency X LATRELL SHORT ER[facility] [id number] [facility] 2024-07-12 17:34:00 2024-07-12 20:35:00 Emergency Latrell Short D [facility] 1..840.114 350.1.13.10 4.2.7.2.686 [id number] [facility] 2024-07-07 14:00:00 2024-07-07 15:00:00 Nurse Visit Nurse, Adc Surgery Mac Rodríguez Nurse, Adc Surgery [facility] 1..840.114 350.1.13.10 4.2.7.2.686 [id number] [facility] 2024-07-07 14:00:00 2024-07-07 14:00:00 Outpatient MAC NEWTON [facility] [id number] [facility] 2024-06-25 00:00:00 2024-07-07 10:59:25 Telephone Yvette Morin [facility] 1..840.114 350.1.13.10 4.2.7.2.686 [id number] [facility] 2024-06-27 00:00:00 2024-06-29 14:41:11 Refill Mac Rodríguez [facility] 1.2.840.114 350.1.13.10 4.2.7.2.686 [id number] [facility] 2024-06-29 00:00:00 2024-06-29 13:13:00 Telephone [facility] 1.2.840.114 350.1.13.10 4.2.7.2.686 [id number] [facility] 2024-06-25 14:06:18 2024-06-25 23:59:00 Outpatient R ANNE [facility] [id number] [facility] 2024-06-25 14:06:18 2024-06-25 23:59:00 [facility] 1.2.840.114 350.1.13.10 4.2.7.2.686 [id number] [facility] 2024-06-24 00:00:00 2024-06-24 14:57:39 Telephone [facility] 1.2.840.114 350.1.13.10 4.2.7.2.686 [id number] [facility] 2024-06-23 00:00:00 2024-06-24 14:37:52 [facility] 1.2.840.114 350.1.13.10 4.2.7.2.686 [id number] [facility] 2024-06-24 13:00:00 2024-06-24 13:00:00 Outpatient R [facility]UAN [facility] [id number] [facility] 2024-06-19 00:00:00 2024-06-22 10:29:20 Refill Mac Rodríguez [facility] 1.2.840.114 350.1.13.10 4.2.7.2.686 [id number] [facility] 2024-06-14 00:00:00 2024-06-17 07:01:34 Refill Patience [facility] 1.2.840.114 350.1.13.10 4.2.7.2.686 [id number] [facility] 2024-06-15 00:00:00 2024-06-15 15:53:47 Letter (Out) [facility] ([place]) 1.2.840.114 350.1.13.10 4.2.7.2.686 [id number] [facility] 2024-06-15 00:00:00 2024-06-15 13:53:53 Telephone Patience [facility] 1.2.840.114 350.1.13.10 4.2.7.2.686 [id number] [facility] 2024-06-14 00:00:00 2024-06-14 18:59:46 Telephone Mac Rodríguez [facility] 1.2.840.114 350.1.13.10 4.2.7.2.686 [id number] [facility] 2024-06-12 14:00:00 2024-06-12 14:07:59 Outpatient R SANKET [facility]UE[facility]FORM[facility]LY [facility] [id number] [facility] 2024-06-03 00:00:00 2024-06-03 16:01:01 [facility] 1.2.840.114 350.1.13.10 4.2.7.2.686 [id number] [facility] 2024-06-03 14:00:00 2024-06-03 14:00:00 Outpatient R MAC RODRÍGUEZ [facility] [id number] [facility] 2024-06-02 00:00:00 2024-06-02 12:22:18 Telephone Anne [facility] [place] 1.2.840.114 350.1.13.10 4.2.7.2.686 [id number] [facility] 2024-05-29 00:00:00 2024-06-02 08:44:03 [facility] 1.2.840.114 350.1.13.10 4.2.7.2.686 [id number] [facility] 2024-06-01 00:00:00 2024-06-02 08:38:39 [facility] 1.2.840.114 350.1.13.10 4.2.7.2.686 [id number] [facility] 2024-05-31 17:41:00 2024-05-31 19:24:00 Emergency X ROMAN KATHLEEN [facility] [id number] [facility] 2024-05-31 17:41:00 2024-05-31 19:24:00 Emergency Roman Kathleen [facility] 1.2.840.114 350.1.13.10 4.2.7.2.686 [id number] [facility] 2024-05-27 11:00:00 2024-05-27 11:05:46 Outpatient R SANKET RODRÍGUEZFORMERLY [facility] [id number] [facility] 2024-05-27 11:00:00 2024-05-27 11:05:46 Real Estate Instructor Visit 2, Adc Lab Mac Rodríguez [facility] 1.84.114 350.1.13.10 4.2.7.2.686 [id number] [facility] 2024-05-26 15:30:00 2024-05-26 15:36:02 Outpatient R SANKET RODRÍGUEZFORMERLY [facility] [id number] [facility] 2024-05-26 15:30:00 2024-05-26 15:36:02 [facility] 1.84.114 350.1.13.10 4.2.7.2.686 [id number] [facility] 2024-05-17 00:00:00 2024-05-19 10:57:51 Refmaribell Morin [facility] 1.84.114 350.1.13.10 4.2.7.2.686 [id number] [facility] 2024-05-12 00:00:00 2024-05-12 15:27:50 Refmaribell Morin [facility] 1.2.840.114 350.1.13.10 4.2.7.2.686 [id number] [facility] 2024-05-12 13:40:00 2024-05-12 13:40:00 Outpatient R YVETTE MORIN [facility] [id number] [facility] 2024-04-28 00:00:00 2024-04-29 09:58:00 Refmaribell Morin [facility] 1.2840.114 350.1.13.10 4.2.7.2.686 [id number] [facility] 2024-04-28 00:00:00 2024-04-28 15:01:12 Refill Patience [facility] JEANNA?[facility] 1.2.840.114 350.1.13.10 4.2.7.2.686 [id number] [facility] 2024-04-27 00:00:00 2024-04-27 16:50:28 Refill Patience [facility] JEANNA?[facility] 1.2.840.114 350.1.13.10 4.2.7.2.686 [id number] [facility] 2024-03-18 00:00:00 2024-03-18 16:13:24 Telephone [facility] 1.2.840.114 350.1.13.10 4.2.7.2.686 [id number] [facility] 2024-03-13 12:40:00 2024-03-13 13:34:59 Outpatient [facility] [id number] [facility] 2024-03-13 12:40:00 2024-03-13 13:34:59 Office Visit Patience [facility] JEANNA?[facility] 1.2.840.114 350.1.13.10 4.2.7.2.686 [id number] [facility] 2024-03-10 00:00:00 2024-03-11 09:34:16 Telephone Patience [facility] JEANNA?[facility] 1.2.840.114 350.1.13.10 4.2.7.2.686 [id number] [facility] 2024-03-10 00:00:00 2024-03-10 16:14:10 Refill Ol[facility] 1.2.840.114 350.1.13.10 4.2.7.2.686 [id number] [facility] 2024-03-10 00:00:00 2024-03-10 16:13:30 Refill [facility]ga [facility] 1.2.840.114 350.1.13.10 4.2.7.2.686 [id number] [id number] [facility] 2024-03-06 00:00:00 2024-03-06 08:21:52 Refill Patience [facility] JEANNA?[facility] 1.2.840.114 350.1.13.10 4.2.7.2.686 [id number] [facility] 2024-03-02 00:00:00 2024-03-04 13:28:23 Telephone [facility] 1.2.840.114 350.1.13.10 4.2.7.2.686 [id number] [id number] [facility] 2024-02-27 00:00:00 2024-03-02 14:11:56 Telephone [facility] 1.2.840.114 350.1.13.10 4.2.7.2.686 [id number] [facility] 2024-02-25 00:00:00 2024-02-28 18:01:07 Refill [facility] 1.2.840.114 350.1.13.10 4.2.7.2.686 [id number] [facility] 2024-02-14 00:00:00 2024-02-20 14:58:32 Telephone [facility]ience [facility] 1.2840.114 350.1.13.10 4.2.7.2.686 [id number] [id number] [facility] 2024-02-19 15:30:00 2024-02-19 16:23:38 Outpatient R SUSIE LOZANO [facility] [id number] [facility] 2024-02-19 15:30:00 2024-02-19 16:23:38 Office Visit Susie Lozano [facility] 1.284.114 350.1.13.10 4.2.7.2.686 [id number] [facility] 2024-02-17 00:00:00 2024-02-18 15:55:38 Telephone Oscarjenny [facility] JEANNA?[facility] 1.84.114 350.1.13.10 4.2.7.2.686 [id number] [facility] 2024-02-07 16:00:00 2024-02-07 16:00:00 Outpatient R YVETTE MORIN [facility] [id number] [facility] 2024-01-31 00:00:00 2024-02-04 09:40:19 Refill Olga Rojo [facility] 1.84.114 350.1.13.10 4.2.7.2.686 [id number] [facility] 2024-01-31 00:00:00 2024-02-03 15:18:00 Refill Oscarjenny [facility] JEANNA?[facility] 1.84.114 350.1.13.10 4.2.7.2.686 [id number] [facility] 2024-01-28 00:00:00 2024-01-28 10:33:31 [facility] [id number] [facility] 2024-01-24 00:00:00 2024-01-27 09:21:45 [facility]phone [facility] [id number] [id number] [facility] 2024-01-18 00:00:00 2024-01-20 12:58:43 Refill [facility] [facility] 1.2.840.114 350.1.13.10 4.2.7.2.686 [id number] 044 [id number] [facility] 2024-01-17 00:00:00 2024-01-17 15:47:49 Telephone [facility] 1.2.840.114 350.1.13.10 4.2.7.2.686 [id number] 044 [id number] [facility] 2024-01-17 00:00:00 2024-01-17 15:40:01 Refill Patience [facility] JEANNA?[facility] 1.2.840.114 350.1.13.10 4.2.7.2.686 [id number] 044 [id number] [facility] 2024-01-10 13:40:00 2024-01-10 14:26:52 [facility] [id number] 2024-01-10 13:40:00 2024-01-10 14:26:52 Office [facility] 1.2.840.114 350.1.13.10 4.2.7.2.686 [id number] 044 [id number] [facility] 2024-01-05 00:00:00 2024-01-07 12:59:28 Refill [facility] 1.2.840.114 350.1.13.10 4.2.7.2.686 [id number] 044 [id number] [facility] 2024-01-02 00:00:00 2024-01-02 10:36:57 Refill [facility] 1.2.840.114 350.1.13.10 4.2.7.2.686 [id number] 044 [id number] [facility] 2023-12-27 00:00:00 2023-12-27 11:13:26 Telephone [facility] 1.2.840.114 350.1.13.10 4.2.7.2.686 [id number] 044 [id number] [facility] 2023-12-21 00:00:00 2023-12-23 09:02:57 Refill Jordi [facility] 1.2.840.114 350.1.13.10 4.2.7.2.686 [id number] 092 [id number] [facility] 2023-12-13 14:20:00 2023-12-13 15:03:43 Outpatient R YVETTE MORIN [facility] [id number] [facility] 2023-12-13 14:20:00 2023-12-13 15:03:43 Office [facility] 1.2.840.114 350.1.13.10 4.2.7.2.686 [id number] 044 [id number] [facility] 2023-12-09 00:00:00 2023-12-11 12:25:29 Telephone [facility] 1.2.840.114 350.1.13.10 4.2.7.2.686 [id number] 044 [id number] [facility] 2023-12-09 00:00:00 2023-12-10 13:48:40 Telephone Patience [facility] JEANNA?[facility] 1.2.840.114 350.1.13.10 4.2.7.2.686 [id number] 044 [id number] [facility] 2023-12-09 00:00:00 2023-12-09 15:20:19 Refill Patience [facility] JEANNA?[facility] 1.2.840.114 350.1.13.10 4.2.7.2.686 [id number] 044 [id number] [facility] 2023-12-03 00:00:00 2023-12-05 15:12:13 Telephone Patience [facility] JEANNA?[facility] 1.2.840.114 350.1.13.10 4.2.7.2.686 [id number] 044 [id number] [facility] 2023-11-26 00:00:00 2023-11-27 13:09:54 Telephone Patience [facility] JEANNA?[facility] 1.2.840.114 350.1.13.10 4.2.7.2.686 [id number] 044 [id number] [facility] 2023-11-25 00:00:00 2023-11-25 16:38:45 Refill [facility] 1.2.840.114 350.1.13.10 4.2.7.2.686 [id number] 044 [id number] [facility] 2023-11-21 00:00:00 2023-11-25 15:19:17 Telephone [facility] 1.2.840.114 350.1.13.10 4.2.7.2.686 [id number] 044 [id number] [facility] 2023-11-18 00:00:00 2023-11-22 13:13:11 Telephone [facility] 1.2.840.114 350.1.13.10 4.2.7.2.686 [id number] 044 [id number] [facility] 2023-11-20 00:00:00 2023-11-21 07:07:47 Telephone [facility] 1.2.840.114 350.1.13.10 4.2.7.2.686 [id number] 044 [id number] [facility] 2023-11-20 00:00:00 2023-11-20 17:21:39 RoyerOlga Biswas [facility] JEANNA?[facility] 1.2.840.114 350.1.13.10 4.2.7.2.686 [id number] 044 [id number] [facility] 2023-11-15 00:00:00 2023-11-19 13:36:31 Telephone [facility] 1.2.840.114 350.1.13.10 4.2.7.2.686 [id number] 044 [id number] [facility] 2023-11-19 00:00:00 2023-11-19 13:16:23 Refill Patience [facility] JEANNA?[facility] 1.2.840.114 350.1.13.10 4.2.7.2.686 [id number] 044 [id number] [facility] 2023-11-18 00:00:00 2023-11-18 11:18:18 Refill Patience [facility] JEANNA?[facility] 1.2.840.114 350.1.13.10 4.2.7.2.686 [id number] 044 [id number] [facility] 2023-11-05 00:00:00 2023-11-13 15:29:59 Telephone Patience [facility] JEANNA?[facility] 1.2.840.114 350.1.13.10 4.2.7.2.686 [id number] 809 [id number] [facility] 2023-11-13 00:00:00 2023-11-13 15:10:19 Patient Outreach Juanis Estrada [facility] 1.2.840.114 350.1.13.10 4.2.7.2.686 [id number] 044 [id number] [facility] 2023-10-18 00:00:00 2023-11-12 08:25:10 Refill Jf Awad [facility] 1.2.840.114 350.1.13.10 4.2.7.2.686 [id number] 044 [id number] [facility] 2023-11-11 00:00:00 2023-11-11 08:03:55 Letter (Out) Patience [facility] JEANNA?[facility] 1.2.840.114 350.1.13.10 4.2.7.2.686 [id number] 044 [id number] [facility] 2023-11-04 00:00:00 2023-11-04 00:00:00 Telephone Patience [facility] JEANNA?[facility] 1.2.840.114 350.1.13.10 4.2.7.2.686 [id number] 044 [id number] [facility] 2023-11-01 15:20:00 2023-11-01 16:14:34 Outpatient R YVETTE MORIN [facility] [id number] [facility] 2023-11-01 15:20:00 2023-11-01 16:14:34 Office Visit Patience Yvette [facility] 1.2.840.114 350.1.13.10 4.2.7.2.686 [id number] 044 [id number] [facility] 2023-11-01 13:00:00 2023-11-01 14:51:40 Office Visit Kiersten Jordi Richey [facility] 1.2.840.114 350.1.13.10 4.2.7.2.686 [id number] 092 [id number] [facility] 2023-11-01 00:00:00 2023-11-01 00:00:00 Letter (Out) Kiersten [facility] JEANNA?[facility] 1.2.840.114 350.1.13.10 4.2.7.2.686 [id number] 092 [id number] [facility] 2023-10-26 00:00:00 2023-10-26 00:00:00 Jf Gómez [facility] JE[facility] 1.2.840.114 350.1.13.10 4.2.7.2.686 [id number] 044 [id number] [facility] 2023-10-14 09:40:00 2023-10-14 09:40:00 Outpatient JORDI BARRY [facility] [id number] [facility] 2023-10-12 00:00:00 2023-10-12 00:00:00 Refmaribell Morin [facility] YOLANDE MEEKS?[facility] 1..840.114 350.1.13.10 4.2.7.2.686 [id number] 044 [id number] [facility] 2023-10-11 00:00:00 2023-10-11 00:00:00 Refmaribell Morin [facility] 1..840.114 350.1.13.10 4.2.7.2.686 [id number] 044 [id number] [facility] 2023-10-04 08:30:00 2023-10-04 08:30:00 Outpatient JEFFREY LEWIS [facility] [id number] [facility] 2023-10-01 09:20:00 2023-10-01 09:20:00 Outpatient JORDI BARRY [facility] [id number] [facility] 2023-09-27 00:00:00 2023-09-27 00:00:00 Fortunato Morin [facility] 1..840.114 350.1.13.10 4.2.7.2.686 [id number] 044 [id number] [facility] 2023-09-26 00:00:00 2023-09-26 00:00:00 [facility] 1..840.114 350.1.13.10 4.2.7.2.686 [id number] 092 [id number] [facility] 2023-09-26 00:00:00 2023-09-26 00:00:00 Jordi Baez Gene [facility] JE[facility] 1.2840.114 350.1.13.10 4.2.7.2.686 [id number] 092 [id number] [facility] 2023-09-26 00:00:00 2023-09-26 00:00:00 Refill Jordi Burch [facility] JE[facility] 1.2840.114 350.1.13.10 4.2.7.2.686 [id number] 092 [id number] [facility] 2023-09-26 00:00:00 2023-09-26 00:00:00 Refill Jordi Burch [facility] 1.2840.114 350.1.13.10 4.2.7.2.686 [id number] 092 [id number] [facility] 2023-09-25 00:00:00 2023-09-25 00:00:00 Refill Jf Aawd [facility] JE[facility] 1.2840.114 350.1.13.10 4.2.7.2.686 [id number] 044 [id number] [facility] 2023-09-15 00:00:00 2023-09-15 00:00:00 Refill [facility] 1.2840.114 350.1.13.10 4.2.7.2.686 [id number] 044 [id number] [facility] 2023-09-15 00:00:00 2023-09-15 00:00:00 Refill [facility] 1.2840.114 350.1.13.10 4.2.7.2.686 [id number] 044 [id number] [facility] 2023-09-15 00:00:00 2023-09-15 00:00:00 Refill [facility] 1.2.840.114 350.1.13.10 4.2.7.2.686 [id number] 044 [id number] [facility] 2023-09-15 00:00:00 2023-09-15 00:00:00 Refill Patience [facility] JEANNA?[facility] 1.2.840.114 350.1.13.10 4.2.7.2.686 [id number] 044 [id number] [facility] 2023-08-29 00:00:00 2023-08-29 00:00:00 Refill Patience [facility] JEANNA?[facility] 1.2840.114 350.1.13.10 4.2.7.2.686 [id number] 044 [id number] [facility] 2023-08-28 00:00:00 2023-08-28 00:00:00 Refill Patience [facility] JEANNA?[facility] 1.2840.114 350.1.13.10 4.2.7.2.686 [id number] 044 [id number] [facility] 2023-08-12 00:00:00 2023-08-12 00:00:00 Refmaribell Jollytheresa Jordi Kaiden [facility] 1.2840.114 350.1.13.10 4.2.7.2.686 [id number] 092 [id number] [facility] 2023-08-12 00:00:00 2023-08-12 00:00:00 Refill Patience [facility] JEANNA?[facility] 1.2840.114 350.1.13.10 4.2.7.2.686 [id number] 044 [id number] [facility] 2023-07-24 00:00:00 2023-07-24 00:00:00 Refill Patience [facility] JEANNA?[facility] 1.840.114 350.1.13.10 4.2.7.2.686 [id number] 044 [id number] [facility] 2023-07-13 00:00:00 2023-07-13 00:00:00 Refill Patience [facility] JEANNA?[facility] 1.840.114 350.1.13.10 4.2.7.2.686 [id number] 044 [id number] [facility] 2023-07-09 00:00:00 2023-07-09 00:00:00 Refill Alejo Xander [facility] 1.840.114 350.1.13.10 4.2.7.2.686 [id number] 044 [id number] [facility] 2023-06-24 14:40:00 2023-06-24 14:40:00 Outpatient JORDI BARRY [facility] [id number] [facility] 2023-06-13 13:40:00 2023-06-13 13:40:00 Outpatient YVETTE CHAMBERS YVETTE [facility] [id number] [facility] 2023-05-25 00:00:00 2023-05-25 00:00:00 Refill Patience [facility] JEANNA?[facility] 1.840.114 350.1.13.10 4.2.7.2.686 [id number] 044 [id number] [facility] 2023-05-21 13:00:00 2023-05-21 13:15:00 Real Estate Instructor Visit Lab, Cheyanne Hernandes [facility] JEANNA?[facility] 1.840.114 350.1.13.10 4.2.7.2.686 [id number] [facility] 2023-05-21 13:00:00 2023-05-21 13:00:00 Outpatient YVETTE CHAMBERS [facility] [id number] [facility] 2023-05-21 11:00:00 2023-05-21 11:20:00 Imm/Inj Visit Nurse, Cheyanne Jj [facility] JEANNA?[facility] 1..840.114 350.1.13.10 4.2.7.2.686 [id number] 044 [id number] [facility] 2023-05-20 11:40:00 2023-05-20 14:43:35 Outpatient JORDI BARRY [facility] [id number] [facility] 2023-05-20 11:40:00 2023-05-20 14:43:35 Office Visit Kiersten [facility] JEANNA?[facility] 1.840.114 350.1.13.10 4.2.7.2.686 [id number] 092 [id number] [facility] 2023-05-20 14:00:00 2023-05-20 14:15:00 Real Estate Instructor Visit Lab, Josiah Burch [facility] JEANNA?[facility] 1..840.114 350.1.13.10 4.2.7.2.686 [id number] [facility] 2023-05-20 00:00:00 2023-05-20 00:00:00 Letter (Out) KierstenJordi [facility] JEANNA?[facility] 1..840.114 350.1.13.10 4.2.7.2.686 [id number] 092 [id number] [facility] 2023-05-15 00:00:00 2023-05-15 00:00:00 Patient Outreach Stia Evans [facility] 1..840.114 350.1.13.10 4.2.7.2.686 [id number] 044 [id number] [facility] 2023-05-13 13:40:00 2023-05-13 14:13:39 Outpatient R YVETTE MORIN [facility] [id number] [facility] 2023-05-13 13:40:00 2023-05-13 14:13:39 Office Visit Patience [facility] JEANNA?[facility] 1.2.840.114 350.1.13.10 4.2.7.2.686 [id number] 044 [id number] [facility] 2023-05-13 00:00:00 2023-05-13 00:00:00 Letter (Out) Patience [facility] JEANNA?[facility] 1..840.114 350.1.13.10 4.2.7.2.686 [id number] 044 [id number] [facility] 2023-05-11 00:00:00 2023-05-11 00:00:00 Jordi Baez [facility] 1..840.114 350.1.13.10 4.2.7.2.686 [id number] 092 [id number] [facility] 2023-04-11 00:00:00 2023-04-11 00:00:00 Orders Only Doctor Unassigned, [place] [facility] 1.2840.114 350.1.13.10 4.2.7.2.686 [id number] [facility] 2023-04-09 00:00:00 2023-04-09 00:00:00 Telephone Patience [facility] JEANNA?[facility] 1.2840.114 350.1.13.10 4.2.7.2.686 [id number] 044 [id number] [facility] 2023-04-04 00:00:00 2023-04-04 00:00:00 Telephone Patience [facility] JEANNA?[facility] 1.2840.114 350.1.13.10 4.2.7.2.686 [id number] 044 [id number] [facility] 2023-02-19 16:20:00 2023-02-19 16:20:00 [id number] 2023-02-15 00:00:00 2023-02-15 00:00:00 [facility] 1.840.114 350.1.13.10 4.2.7.2.686 [id number] [facility] 2023-02-15 00:00:00 2023-02-15 00:00:00 Refill Patience [facility] JEANNA?[facility] 1.840.114 350.1.13.10 4.2.7.2.686 [id number] 044 [id number] [facility] 2023-02-13 00:00:00 2023-02-13 00:00:00 Refill Patience [facility] JEANNA?[facility] 1.840.114 350.1.13.10 4.2.7.2.686 [id number] 044 [id number] [facility] 2023-01-21 00:00:00 2023-01-21 00:00:00 Refill Daisy Hollingsworth [facility] 1.840.114 350.1.13.10 4.2.7.2.686 [id number] 044 [id number] [facility] 2023-01-21 00:00:00 2023-01-21 00:00:00 [facility] 1.2.840.114 350.1.13.10 4.2.7.2.686 [id number] 044 [id number] [facility] 2023-01-21 00:00:00 2023-01-21 00:00:00 [facility] 1.2.840.114 350.1.13.10 4.2.7.2.686 [id number] 044 [id number] [facility] 2023-01-21 00:00:00 2023-01-21 00:00:00 [facility] 1.2.840.114 350.1.13.10 4.2.7.2.686 [id number] 044 [id number] [facility] 2023-01-18 00:00:00 2023-01-18 00:00:00 Refmaribell [facility] 1.2840.114 350.1.13.10 4.2.7.2.686 [id number] 044 [id number] [facility] 2023-01-14 14:20:00 2023-01-14 14:20:00 Outpatient JORDI BARRY [facility] [id number] [facility] 2023-01-14 14:20:00 2023-01-14 14:20:00 Outpatient JORDI BARRY [facility] [id number] [facility] 2022-12-24 00:00:00 2022-12-24 00:00:00 Refill [facility] 1.2.840.114 350.1.13.10 4.2.7.2.686 [id number] 044 [id number] [facility] 2022-12-20 00:00:00 2022-12-20 00:00:00 Patient Secure Msg Doctor Unassigned, [place] [facility] 1.284.114 350.1.13.10 4.2.7.2.686 [id number] 019 [id number] [facility] 2022-12-01 00:00:00 2022-12-01 00:00:00 Jordi Baez [facility] 1.84.114 350.1.13.10 4.2.7.2.686 [id number] 092 [id number] [facility] 2022-11-20 00:00:00 2022-11-20 00:00:00 Patient Secure g Daisy Hollingsworth [facility] 1.84.114 350.1.13.10 4.2.7.2.686 [id number] [id number] [facility] 2022-11-19 14:31:39 2022-11-19 23:59:00 Outpatient R YVETTE [facility] [id number] [facility] 2022-11-19 13:40:00 2022-11-19 14:28:26 Office Visit Patience Yvette [facility] 1.84.114 350.1.13.10 4.2.7.2.686 [id number] [id number] [facility] 2022-11-15 14:45:00 2022-11-15 15:15:00 Office Visit Pat Leon [facility] 1.84.114 350.1.13.10 4.2.7.2.686 [id number] [facility] 2022-11-15 14:45:00 2022-11-15 14:45:00 Outpatient Lesa LEON PAT [facility] [id number] [facility] 2022-11-15 00:00:00 2022-11-15 00:00:00 Orders Only Doctor Unassigned, Toluca [facility] 1.2.840.114 350.1.13.10 4.2.7.2.686 [id number] [facility] 2022-11-01 00:00:00 2022-11-01 00:00:00 Eden Moise [facility] 1.2.840.114 350.1.13.10 4.2.7.2.686 [id number] [id number] [facility] 2022-11-01 00:00:00 2022-11-01 00:00:00 Eden Moise [facility] 1.2.840.114 350.1.13.10 4.2.7.2.686 [id number] [id number] [facility] 2022-10-31 00:00:00 2022-10-31 00:00:00 Transition of Care Karina Arteaga 1.2.840.114 350.1.13.10 4.2.7.2.686 [id number] [facility] 2022-10-31 00:00:00 2022-10-31 [facility]00 [facility] 1.2.840.114 350.1.13.10 4.2.7.2.686 [id number] [facility] 2022-10-27 20:06:00 2022-10-30 13:56:00 Outpatient X [facility] [id number] [facility] 2022-10-27 20:06:00 2022-10-30 13:56:00 Emergency Louise Peter, Deepali Bland [facility] 1.2840.114 350.1.13.10 4.2.7.2.686 [id number] [id number] [facility] 2022-10-28 00:00:00 2022-10-28 00:00:00 Refill Karen [facility] 1.2840.114 350.1.13.10 4.2.7.2.686 [id number] [facility] 2022-09-03 00:00:00 2022-09-03 00:00:00 [facility] 1.2840.114 350.1.13.10 4.2.7.2.686 [id number] [id number] [facility] 2022-08-18 00:00:00 2022-08-18 00:00:00 [facility] 1.840.114 350.1.13.10 4.2.7.2.686 [id number] [facility] 2022-08-10 00:00:00 2022-08-10 00:00:00 Patient Outreach Jonathon Anderson 1.840.114 350.1.13.10 4.2.7.2.686 [id number] [facility] 2022-08-06 00:00:00 2022-08-06 00:00:00 Patient Outreach Jonathon Anderson 1.2840.114 350.1.13.10 4.2.7.2.686 [id number] [facility] 2022-08-03 00:00:00 2022-08-03 00:00:00 Case Management [facility] 1.20.114 350.1.13.10 4.2.7.2.686 [id number] [facility] 2022-07-31 00:00:00 2022-07-31 00:00:00 Orders Only Doctor Unassigned, Toluca [facility] 1.840.114 350.1.13.10 4.2.7.2.686 [id number] [facility] 2022-07-26 14:20:00 2022-07-26 14:20:00 Outpatient R PATIENCE [facility] [id number] [facility] 2022-07-26 00:00:00 2022-07-26 00:00:00 Patient Secure [facility] 1..840.114 350.1.13.10 4.2.7.2.686 [id number] [facility] 2022-07-20 11:00:00 2022-07-20 11:35:44 Outpatient R YVETTE MORIN [facility] [id number] [facility] 2022-07-20 11:00:00 2022-07-20 11:35:44 Office Visit Patience [facility] JEANNA?[facility] 1..840.114 350.1.13.10 4.2.7.2.686 [id number] [facility] 2022-07-18 00:00:00 2022-07-18 00:00:00 Telephone Patience [facility] JEANNA?[facility] 1..840.114 350.1.13.10 4.2.7.2.686 [id number] [facility] 2022-07-13 00:00:00 2022-07-13 00:00:00 Telephone Patience [facility] JEANNA?[facility] 1.2.840.114 350.1.13.10 4.2.7.2.686 [id number] [facility] 2022-07-11 12:45:55 2022-07-11 23:59:00 Outpatient YVETTE CHAMBERS [facility] [id number] [facility] 2022-07-11 12:45:55 2022-07-11 23:59:00 Hospital Encounter Yvette Morin [facility] 1.2.840.114 350.1.13.10 4.2.7.2.686 [id number] [facility] 2022-07-03 00:00:00 2022-07-03 00:00:00 Outpatient NORMAN CHAMBERSINE [facility] [id number] [facility] 2022-06-22 14:20:00 2022-06-22 15:03:10 Outpatient JORDI BARRY HOWARD [facility] [id number] [facility] 2022-06-22 14:20:00 2022-06-22 15:03:10 Office Visit Jordi Burch [facility] 1.2.840.114 350.1.13.10 4.2.7.2.686 [id number] [facility] 2022-06-22 14:20:00 2022-06-22 14:20:00 Outpatient JORDI BARRY HOWARD [facility] [id number] [facility] 2022-06-22 14:20:00 2022-06-22 14:20:00 Outpatient JORDI BARRY HOWARD [facility] [id number] [facility] 2022-06-22 14:20:00 2022-06-22 14:20:00 Outpatient JORDI BARRY HOWARD [facility] [id number] [facility] 2022-06-22 14:20:00 2022-06-22 14:20:00 Outpatient Lesa KIERSTENJORDI Ruiz JORDI BURCH [facility] [id number] [facility] 2022-06-22 14:20:00 2022-06-22 14:20:00 Outpatient Lesa BURCH JORDI LEY [facility] [id number] [facility] 2022-06-22 14:20:00 2022-06-22 14:20:00 Outpatient Lesa BURCH JORDI LEY [facility] [id number] [facility] 2022-06-22 00:00:00 2022-06-22 00:00:00 Letter (Out) Jordi [facility] 1.2.840.114 350.1.13.10 4.2.7.2.686 [id number] [facility] 2022-06-21 14:14:52 2022-06-21 23:59:00 Outpatient R YVETTE MORIN [facility] [id number] [facility] 2022-06-21 13:00:00 2022-06-21 14:12:20 Office Visit Patience Yvette [facility] JE[facility]NA?[facility] 1.2.840.114 350.1.13.10 4.2.7.2.686 [id number] [facility] 2022-06-21 00:00:00 2022-06-21 00:00:00 Letter (Out) Patience Yvette [facility] JE[facility]NA?[facility] 1.2.840.114 350.1.13.10 4.2.7.2.686 [id number] [facility] 2022-05-09 00:00:00 2022-05-09 00:00:00 [facility] 1.2.840.114 350.1.13.10 4.2.7.2.686 [id number] [facility] 2022-04-20 13:40:00 2022-04-20 14:29:56 Outpatient R KAREN ZHAO [facility] [id number] [facility] 2022-04-20 13:40:00 2022-04-20 14:29:56 [facility] 1.2.840.114 350.1.13.10 4.2.7.2.686 [id number] [facility] 2022-04-11 00:00:00 2022-04-11 00:00:00 Jordi Hernández [facility] 1.2.840.114 350.1.13.10 4.2.7.2.686 [id number] [facility] 2022-03-23 09:20:00 2022-03-23 09:20:00 Outpatient KAREN NEUMANN [facility] [id number] [facility] 2022-03-06 13:40:00 2022-03-06 13:40:00 Outpatient R KAREN ZHAO [facility] [id number] [facility] 2022-03-06 13:40:00 2022-03-06 13:40:00 Outpatient KAREN NEUMANN [facility] [id number] [facility] 2022-03-06 13:40:00 2022-03-06 13:40:00 Outpatient KAREN NEUMANN [facility] [id number] [facility] 2022-02-12 14:20:00 2022-02-12 14:40:45 Outpatient JORDI BARRY HOWARD [facility] [id number] [facility] 2022-02-12 14:20:00 2022-02-12 14:40:45 Office Visit Jordi Burch [facility] YOLANDE MEEKS?[facility] 1..840.114 350.1.13.10 4.2.7.2.686 [id number] [facility] 2022-02-12 14:20:00 2022-02-12 14:20:00 Outpatient JORDI BARRY HOWARD [facility] [id number] [facility] 2022-01-25 00:00:00 2022-01-25 00:00:00 Telephone Karen Zhao [facility] BUILDING 1..840.114 350.1.13.10 4.2.7.2.686 [id number] [facility] 2022-01-24 11:30:00 2022-01-24 11:30:00 Outpatient R ZAIRA AHMADI OGECHUKWU [facility] [id number] [facility] 2022-01-22 00:00:00 2022-01-22 00:00:00 Patient Outreach Marleny Mishra [facility] BUILDING 1..840.114 350.1.13.10 4.2.7.2.686 [id number] [facility] 2022-01-22 00:00:00 2022-01-22 00:00:00 Patient Outreach Marleny Mishra [facility] BUILDING 1..840.114 350.1.13.10 4.2.7.2.686 [id number] [facility] 2022-01-22 00:00:00 2022-01-22 00:00:00 Patient Outreach Marleny Mishra [facility] BUILDING 1..840.114 350.1.13.10 4.2.7.2.686 [id number] [facility] 2022-01-15 10:45:00 2022-01-15 11:00:00 Real Estate Instructor Visit 2, Adc Lab Karen Zhao [facility] 1.2.840.114 350.1.13.10 4.2.7.2.686 [id number] [facility] 2022-01-15 09:40:00 2022-01-15 10:41:18 Outpatient R KAREN ZHAO [facility] [id number] [facility] 2022-01-15 09:40:00 2022-01-15 10:41:18 Office Visit Karen Zhao [facility] 1.2.840.114 350.1.13.10 4.2.7.2.686 [id number] [facility] 2022-01-15 09:40:00 2022-01-15 10:41:18 Outpatient R KAREN ZHAO [facility] [id number] [facility] 2022-01-15 09:40:00 2022-01-15 10:41:18 Outpatient R KAREN ZHAO [facility] [id number] [facility] 2022-01-15 09:40:00 2022-01-15 10:41:18 Office Visit Karen Zhao [facility] 1.2.840.114 350.1.13.10 4.2.7.2.686 [id number] [facility] 2022-01-15 09:40:00 2022-01-15 10:41:18 Outpatient R KAREN ZHAO [facility] [id number] [facility] 2022-01-15 09:40:2022-01-15 09:40:00 Outpatient R KAREN ZHAO [facility] [id number] [facility] 2022-01-11 16:20:00 2022-01-11 16:20:00 Outpatient R KAREN ZHAO [facility] [id number] [facility] 2022-01-11 16:20:00 2022-01-11 16:20:00 Outpatient R KAREN ZHAO [facility] [id number] [facility] 2022-01-04 15:40:00 2022-01-04 15:40:00 Outpatient KAREN NEUMANN [facility] [id number] [facility] 2022-01-01 14:20:00 2022-01-01 14:20:00 Outpatient SALOMÓN NEUMANNBETH [facility] [id number] [facility] 2021-12-19 00:00:00 2021-12-19 00:00:00 Case Management Maite [facility]erta [facility] ..840.114 350.1.13.10 4.2.7.2.686 [id number] [facility] 2021-12-15 00:00:00 2021-12-15 00:00:00 Telephone Karen Zhao [facility] ..840.114 350.1.13.10 4.2.7.2.686 [id number] 231 [id number] [facility] 2021 00:00:00 2021 00:00:00 Patient Outreach Juanis Estrada [facility] .2.840.114 350.1.13.10 4.2.7.2.686 [id number] 231 [id number] [facility] 2021 00:00:00 2021 00:00:00 Patient Outreach Juanis Estrada [facility] 1.2.840.114 350.1.13.10 4.2.7.2.686 [id number] 231 [id number] [facility] 2021 00:00:00 2021 00:00:00 Orders Only Doctor Unassigned, Toluca [facility] 1.2.840.114 350.1.13.10 4.2.7.2.686 [id number] [id number] [facility] 2021-12-07 00:00:00 2021-12-07 00:00:00 Telephone Karen Zhao [facility] 1.2.840.114 350.1.13.10 4.2.7.2.686 [id number] [facility] 2021-11-27 00:00:00 2021-11-27 00:00:00 Refill Karen Zhao [facility] 1.2.840.114 350.1.13.10 4.2.7.2.686 [id number] [facility] 2021-11-27 00:00:00 2021-11-27 00:00:00 Patient Secure Msg Karen Zhao [facility] 1.2.840.114 350.1.13.10 4.2.7.2.686 [id number] 231 [id number] [facility] 2021-11-24 13:46:30 2021-11-24 23:59:00 Outpatient R KAREN ZHAO [facility] [id number] [facility] 2021-11-24 13:46:30 2021-11-24 23:59:00 Hospital Encounter Karen Zhao [facility] 1.2.840.114 350.1.13.10 4.2.7.2.686 [id number] [facility] 2021-11-24 13:46:30 2021-11-24 23:59:00 Outpatient KAREN NEUMANN [facility] [id number] [facility] 2021-11-24 14:15:00 2021-11-24 14:30:00 Real Estate Instructor Visit Pob, Adc Lab Main [facility] BU[facility] 1.2.840.114 350.1.13.10 4.2.7.2.686 [id number] [facility] 2021-11-24 00:00:00 2021-11-24 00:00:00 Orders Only Doctor Unassigned, Toluca [facility] 1.2.840.114 350.1.13.10 4.2.7.2.686 [id number] [id number] [facility] 2021-11-24 00:00:00 2021-11-24 00:00:00 Refill Karen Zhao [facility] BUILDING 1.2.840.114 350.1.13.10 4.2.7.2.686 [id number] [facility] 2021-11-23 16:15:00 2021-11-23 16:30:00 Real Estate Instructor Visit 2, Adc Lab Karen Zhao [facility] BUILDING 1.2.840.114 350.1.13.10 4.2.7.2.686 [id number] [facility] 2021-11-23 16:15:00 2021-11-23 16:15:00 Outpatient KAREN NEUMANN [facility] [id number] [facility] 2021-11-23 16:15:00 2021-11-23 16:15:00 Outpatient KAREN NEUMANN [facility] [id number] [facility] 2021-11-23 16:15:00 2021-11-23 16:15:00 Outpatient R ZHAO KAREN [facility] [id number] [facility] 2021-11-23 14:00:00 2021-11-23 15:55:48 Outpatient R ZHAO KAREN [facility] [id number] [facility] 2021-11-23 14:00:00 2021-11-23 15:55:48 Office Visit ZhaoKaren morris Roderick [facility] BUILDING 1.2.840.114 350.1.13.10 4.2.7.2.686 [id number] [facility] 2021-10-26 00:00:00 2021-10-26 00:00:00 Telephone Karen Zhao Roderick [facility] BUILDING 1.2.840.114 350.1.13.10 4.2.7.2.686 [id number] [facility] 2021-07-21 00:00:00 2021-07-21 00:00:00 [facility] 1.2.840.114 350.1.13.10 4.2.7.2.686 [id number] [id number] [facility] 2021-07-17 00:00:00 2021-07-17 00:00:00 Telephone Karen Zhao Roderick [facility] BUILDING 1.2.840.114 350.1.13.10 4.2.7.2.686 [id number] [facility] 2021-07-17 00:00:00 2021-07-17 00:00:00 Refill Jordi Burch [facility] JEANNA?[facility] 1.2.840.114 350.1.13.10 4.2.7.2.686 [id number] [id number] [facility] 2021-07-17 00:00:00 2021-07-17 00:00:00 Orders Only Doctor Unassigned, Toluca [facility] 1.2840.114 350.1.13.10 4.2.7.2.686 [id number] [facility] 2021-07-17 00:00:00 2021-07-17 00:00:00 Telephone Jordi Burch [facility] 1.2.114 350.1.13.10 4.2.7.2.686 [id number] 092 [id number] [facility] 2021-06-26 00:00:00 2021-06-26 00:00:00 Patient Outreach Juanis Estrada [facility] BUILDING 1.20.114 350.1.13.10 4.2.7.2.686 [id number] [facility] 2021-06-26 00:00:00 2021-06-26 00:00:00 Patient Outreach Juanis Estrada [facility] BUILDING 1.2840.114 350.1.13.10 4.2.7.2.686 [id number] 231 [id number] [facility] 2021-06-23 00:00:00 2021-06-23 00:00:00 Refill Jordi Burch [facility] BUILDING 1.2840.114 350.1.13.10 4.2.7.2.686 [id number] 092 [id number] [facility] 2021-06-21 00:00:00 2021-06-21 00:00:00 Telephone Karen Zhao [facility] BUILDING 1.2840.114 350.1.13.10 4.2.7.2.686 [id number] 231 [id number] [facility] 2021-06-21 00:00:00 2021-06-21 00:00:00 Telephone K[facility]Jordi [facility] 1.2.840.114 350.1.13.10 4.2.7.2.686 [id number] 092 [id number] [facility] 2021-06-21 00:00:00 2021-06-21 00:00:00 Telephone [facility] 1.2.840.114 350.1.13.10 4.2.7.2.686 [id number] 231 [id number] [facility] 2021-06-20 16:20:00 2021-06-20 16:26:11 Office Visit Kiersten Jordi Richey [facility] 1.2.840.114 350.1.13.10 4.2.7.2.686 [id number] 092 [id number] [facility] 2021-06-20 16:20:00 2021-06-20 16:26:11 Outpatient JORDI BARRY HOWARD [facility] [id number] [facility] 2021-06-20 16:20:00 2021-06-20 16:26:11 Outpatient JORDI BARRY HOWARD [facility] [id number] [facility] 2021-06-20 16:20:00 2021-06-20 16:20:00 Outpatient JORDI BARRY HOWARD [facility] [id number] [facility] 2021-06-20 16:20:00 2021-06-20 16:20:00 Outpatient JORDI BARRY HOWARD [facility] [id number] [facility] 2021-06-15 14:20:00 2021-06-15 15:36:32 Outpatient R KAREN ZHAO [facility] [id number] [facility] 2021-06-15 14:20:00 2021-06-15 15:36:32 [facility] [id number] [facility] 2021-06-15 14:20:00 2021-06-15 15:36:32 Office Visit Karen Zhao [facility] BUILDING 1.84114 350.1.13.10 4.2.7.2.686 [id number] [facility] 2021-06-15 14:20:00 2021-06-15 15:36:32 Outpatient R SALOMÓN ZHAOBETH [facility] [id number] [facility] 2021-06-15 00:00:00 2021-06-15 00:00:00 Orders Only Doctor Unassigned, Toluca [facility] 1.114 350.1.13.10 4.2.7.2.686 [id number] [id number] [facility] 2021-06-08 00:00:00 2021-06-08 00:00:00 Telephone Karen Zhao [facility] 1.84.114 350.1.13.10 4.2.7.2.686 [id number] [id number] [facility] 2021-05-29 00:00:00 2021-05-29 00:00:00 Orders Only Doctor Unassigned, Toluca [facility] 1.114 350.1.13.10 4.2.7.2.686 [id number] 009 [id number] [facility] 2021-05-29 00:00:00 2021-05-29 00:00:00 Telephone [facility] 1.840.114 350.1.13.10 4.2.7.2.686 [id number] 092 [id number] [facility] 2021-05-23 00:00:00 2021-05-23 00:00:00 Patient Secure Msg Karen [facility] 1.2.840.114 350.1.13.10 4.2.7.2.686 [id number] 231 [id number] [facility] 2021-05-21 00:00:00 2021-05-21 00:00:00 Refill Karen Zhao [facility] BUILDING 1.2.840.114 350.1.13.10 4.2.7.2.686 [id number] 231 [id number] [facility] 2021-05-21 00:00:00 2021-05-21 00:00:00 Refill Karen Zhao [facility] BUILDING 1.2.840.114 350.1.13.10 4.2.7.2.686 [id number] 231 [id number] [facility] 2021-05-20 00:00:00 2021-05-20 00:00:00 Refill Karen Zhao [facility] BUILDING 1.2.840.114 350.1.13.10 4.2.7.2.686 [id number] 231 [id number] [facility] 2021-05-19 00:00:00 2021-05-19 00:00:00 Patient Secure Msg Doctor Unassigned, Toluca [facility] 1.2.840.114 350.1.13.10 4.2.7.2.686 [id number] [facility] 2021-05-16 00:00:00 2021-05-16 00:00:00 Refill Aaliyah Zhaozakajal Vaughn [facility] BUILDING 1.2.840.114 350.1.13.10 4.2.7.2.686 [id number] 231 [id number] [facility] 2021-05-03 00:00:00 2021-05-03 00:00:00 Refill Karen Zhao [facility] Building 1.2.840.114 350.1.13.10 4.2.7.2.686 [id number] 044 [id number] [facility] 2021-02-16 00:00:00 2021-02-16 00:00:00 Refill Karen Zhao [facility] BUILDING 1.2.840.114 350.1.13.10 4.2.7.2.686 [id number] 231 [id number] [facility] 2021-02-06 00:00:00 2021-02-06 00:00:00 Case Management Karen Zhao [facility] 1.2.840.114 350.1.13.10 4.2.7.2.686 [id number] 044 [id number] [facility] 2021-02-06 00:00:00 2021-02-06 00:00:00 Orders Only Doctor Unassigned, Toluca [facility] 1.2.840.114 350.1.13.10 4.2.7.2.686 [id number] [facility] 2021-01-23 00:00:00 2021-01-23 00:00:00 Telephone Karen Zhao [facility] Building 1.2.840.114 350.1.13.10 4.2.7.2.686 [id number] 044 [id number] [facility] 2021-01-19 00:00:00 2021-01-19 00:00:[address] [facility] nal Building 1.2.840.114 350.1.13.10 4.2.7.2.686 [id number] 044 [id number] [facility] 2021-01-18 00:00:00 2021-01-18 00:00:00 Telephone Karen Zhao [facility] Building 1.2.840.114 350.1.13.10 4.2.7.2.686 [id number] 044 [id number] [facility] 2021-01-13 00:00:00 2021-01-13 00:00:00 Telephone Karen Zhao [facility] Building 1.2.840.114 350.1.13.10 4.2.7.2.686 [id number] [facility] 2020-12-09 00:00:00 2020-12-09 00:00:00 Refill Karen Zhao [facility] Building 1.2.840.114 350.1.13.10 4.2.7.2.686 [id number] [facility] 2020-11-28 00:00:00 2020-11-28 00:00:00 Refill Karen Zhao [facility] Building 1.2.840.114 350.1.13.10 4.2.7.2.686 [id number] [id number] [facility] 2020-10-20 00:00:00 2020-10-20 00:00:00 Refill Karen Zhao [facility] Building 1.2.840.114 350.1.13.10 4.2.7.2.686 [id number] [id number] [facility] 2020-10-17 13:30:00 2020-10-17 13:49:21 Lux COSTELLO ASHLEE [facility] [id number] [facility] 2020-10-17 13:30:00 2020-10-17 13:30:00 Outpatient Lesa COSTELLO ASHLEE [facility] [id number] [facility] 2020-10-14 00:00:00 2020-10-14 00:00:00 Refill Karen Zhao [facility] 1.2.840.114 350.1.13.10 4.2.7.2.686 [id number] [facility] 2020-09-26 14:20:00 2020-09-26 14:20:00 Outpatient ASHLEE CELESTIN [facility] [id number] [facility] 2020-09-26 14:20:00 2020-09-26 13:25:20 Outpatient Lesa COSTELLO [facility] [id number] [facility] 2020-09-20 00:00:00 2020-09-20 00:00:00 Patient Outreach Tyshawn Branch [facility] 1.2.840.114 350.1.13.10 4.2.7.2.686 [id number] [facility] 2020-08-26 00:00:00 2020-08-26 00:00:00 Refill Karen Zhao [facility] 1.2.840.114 350.1.13.10 4.2.7.2.686 [id number] [facility] 2020-07-21 00:00:00 2020-07-21 00:00:00 Karen Herrera [facility] 1.2.840.114 350.1.13.10 4.2.7.2.686 [id number] [facility] 2020-07-11 00:00:00 2020-07-11 00:00:00 Orders Only Doctor Unassigned, [place] [facility] 1.284.114 350.1.13.10 4.2.7.2.686 [id number] [facility] 2020-06-20 14:59:22 2020-06-21 09:01:00 Office Visit Jordi Burch [facility] 1.2.84.114 350.1.13.10 4.2.7.2.686 [id number] [facility] 2020-06-20 15:00:00 2020-06-20 15:00:00 Outpatient JORDI BARRY HOWARD [facility] [id number] [facility] 2020-06-20 00:00:00 2020-06-20 00:00:00 Letter (Out) Jordi Burch [facility] 1.2.840.114 350.1.13.10 4.2.7.2.686 [id number] [facility] 2020-06-13 13:48:24 2020-06-13 16:41:24 Office Visit Karen Zhao [facility] 1.2.840.114 350.1.13.10 4.2.7.2.686 [id number] [facility] 2020-06-13 14:00:00 2020-06-13 14:00:00 Outpatient KAREN NEUMANN [facility] [id number] [facility] 2020-05-27 00:00:00 2020-05-27 00:00:00 Refill Karen Zhao [facility] 1.2.840.114 350.1.13.10 4.2.7.2.686 [id number] [facility] 2020-05-26 00:00:00 2020-05-26 00:00:00 Refill Karen Zhao [facility] 1.2.840.114 350.1.13.10 4.2.7.2.686 [id number] [facility] 2020-05-14 00:00:00 2020-05-14 00:00:00 Orders Only Doctor Unassigned, [place] [facility] 1.2.840.114 350.1.13.10 4.2.7.2.686 [id number] [facility] 2020-03-22 00:00:00 2020-03-22 00:00:00 Refill Karen Zhao [facility] Building [id number] [id number] [id number] [id number] [facility] 2020-01-31 00:00:00 2020-01-31 00:00:00 Refill Karen Zhao [facility] Building [id number] [id number] [id number] [id number] 231 [id number] [facility] 2020-01-24 00:00:00 2020-01-24 00:00:00 Refill Karen Zhao [facility] Building [id number] [id number] 4.2.7.2.686 [id number] [facility] 2019-10-31 00:00:00 2019-10-31 00:00:00 Refill Karen Zhao [facility] Building [id number] [id number] 4.2.7.2.686 [id number] [facility] 2019-09-30 00:00:00 2019-09-30 00:00:00 Refill Karen Zhao [facility] [id number] [id number] [id number] [facility] 2019-09-07 00:00:00 2019-09-07 00:00:00 Refill Karen Zhao [facility] [id number] [id number] 4.2.7.2.686 [id number] 231 [id number] [facility] 2019-08-10 00:00:00 2019-08-10 00:00:00 [facility] [id number] [id number] 4.2.7.2.686 [id number] [facility] 2019-06-11 16:10:55 2019-06-11 23:59:00 Outpatient Lesa DUVALZHAO, KAREN [facility] [id number] [facility] 2019-03-05 00:00:00 2019-03-05 00:00:00 Refill Karen Zhao [facility] [id number] [id number] 4.2.7.2.686 [id number] [facility] 2019-02-27 00:00:00 2019-02-27 00:00:00 Refill Jf Huertas [facility] [id number] 350.1.13.10 4.2.7.2.686 [id number] 231 [id number] [facility] 2018-10-27 14:00:00 2018-10-27 14:00:00 Outpatient [facility] [id number] [facility] 2018-09-25 10:00:00 2018-09-25 10:00:00 [facility] [id number] [facility] 2018-08-28 08:30:00 2018-08-28 08:30:00 Outpatient [facility] [id number] [facility] Results Test Description Test Time Test Comments Results Result Co mments Source [facility] W Specific [id number] 21:11:00* Test Item Value Reference Range Interpretation Comme nts POCT U SP GRAV (test code = 3255) 1.030 mg/dl 1.005-1.025 A POCT PH U (test code = 3254) 5 mg/dl 5-8 POCT U LEUK EST (test code = 3263) ++ Negative - Negative A POCT U NIT (test code = 3262) neg Negative - Negati ve POCT U PROT (test code = 3259) trace Negative - Negative A POCT U GLU (test code = 3256) normal Negative - Negati ve POCT U KETONE (test code = 3258) +/small Negative - Negative POCT U UROBILI (test code = 3260) normal 0.2-1 POCT U BILI (test code = 3261) ++ Negative - Negative A POCT U BLD (test code = 3257) about 50 Negative - Negati ve POCT U COLOR (test code = 3266) dark yellow POCT U APPEAR (test code = 3267) hazy Lab Interpretation (test cod e = 30938-8) Abnormal [facility] Urinalysis W Specific [id number] 21:11:00* Test Item Value Reference Range Interpretation Comme nts POCT U SP GRAV (test code = 3255) 1.030 mg/dl 1.005-1.025 A POCT PH U (test code = 3254) 5 mg/dl 5-8 POCT U LEUK EST (test code = 3263) ++ Negative - Negative A POCT U NIT (test code = 3262) neg Negative - Negati ve POCT U PROT (test code = 3259) trace Negative - Negative A POCT U GLU (test code = 3256) normal Negative - Negati ve POCT U KETONE (test code = 3258) +/small Negative - Negative POCT U UROBILI (test code = 3260) normal 0.2-1 POCT U BILI (test code = 3261) ++ Negative - Negative A POCT U BLD (test code = 3257) about 50 Negative - Negati ve POCT U COLOR (test code = 3266) dark yellow POCT U APPEAR (test code = 3267) hazy Lab Interpretation (test cod e = 29725-7) Abnormal [facility] Urinalysis W Specific [id number] 21:11:00* Test Item Value Reference Range Interpretation Comme nts POCT U SP GRAV (test code = 3255) 1.030 mg/dl 1.005-1.025 A POCT PH U (test code = 3254) 5 mg/dl 5-8 POCT U LEUK EST (test code = 3263) ++ Negative - Negative A POCT U NIT (test code = 3262) neg Negative - Negati ve POCT U PROT (test code = 3259) trace Negative - Negative A POCT U GLU (test code = 3256) normal Negative - Negati ve POCT U KETONE (test code = 3258) +/small Negative - Negative POCT U UROBILI (test code = 3260) normal 0.2-1 POCT U BILI (test code = 3261) ++ Negative - Negative A POCT U BLD (test code = 3257) about 50 Negative - Negati ve POCT U COLOR (test code = 3266) dark yellow POCT U APPEAR (test code = 3267) hazy Lab Interpretation (test cod e = 33922-6) Abnormal [facility] Urinalysis W Specific [id number] 21:11:00* Test Item Value Reference Range Interpretation Comme nts POCT U SP GRAV (test code = 3255) 1.030 mg/dl 1.005-1.025 A POCT PH U (test code = 3254) 5 mg/dl 5-8 POCT U LEUK EST (test code = 3263) ++ Negative - Negative A POCT U NIT (test code = 3262) neg Negative - Negati ve POCT U PROT (test code = 3259) trace Negative - Negative A POCT U GLU (test code = 3256) normal Negative - Negati ve POCT U KETONE (test code = 3258) +/small Negative - Negative POCT U UROBILI (test code = 3260) normal 0.2-1 POCT U BILI (test code = 3261) ++ Negative - Negative A POCT U BLD (test code = 3257) about 50 Negative - Negati ve POCT U COLOR (test code = 3266) dark yellow POCT U APPEAR (test code = 3267) hazy Lab Interpretation (test cod e = 83082-7) Abnormal [facility] Urinalysis W Specific [id number] 21:11:00* Test Item Value Reference Range Interpretation Comme nts POCT U SP GRAV (test code = 3255) 1.030 mg/dl 1.005-1.025 A POCT PH U (test code = 3254) 5 mg/dl 5-8 POCT U LEUK EST (test code = 3263) ++ Negative - Negative A POCT U NIT (test code = 3262) neg Negative - Negati ve POCT U PROT (test code = 3259) trace Negative - Negative A POCT U GLU (test code = 3256) normal Negative - Negati ve POCT U KETONE (test code = 3258) +/small Negative - Negative POCT U UROBILI (test code = 3260) normal 0.2-1 POCT U BILI (test code = 3261) ++ Negative - Negative A POCT U BLD (test code = 3257) about 50 Negative - Negati ve POCT U COLOR (test code = 3266) dark yellow POCT U APPEAR (test code = 3267) hazy Lab Interpretation (test cod e = 28253-3) [facility] [id number] 21:11:00* Test Item Value Reference Range Interpretation Comme nts POCT U SP GRAV (test code = 3255) 1.030 mg/dl 1.005-1.025 A POCT PH U (test code = 3254) 5 mg/dl 5-8 POCT U LEUK EST (test code = 3263) ++ Negative - Negative A POCT U NIT (test code = 3262) neg Negative - Negati ve POCT U PROT (test code = 3259) trace Negative - Negative A POCT U GLU (test code = 3256) normal Negative - Negati ve POCT U KETONE (test code = 3258) +/small Negative - Negative POCT U UROBILI (test code = 3260) normal 0.2-1 POCT U BILI (test code = 3261) ++ Negative - Negative A POCT U BLD (test code = 3257) about 50 Negative - Negati ve POCT U COLOR (test code = 3266) dark yellow POCT U APPEAR (test code = 3267) hazy Lab Interpretation (test cod e = 37371-1) [facility]normal [facility] W Specific [id number] 21:11:00* Test Item Value Reference Range Interpretation Comme nts POCT U SP GRAV (test code = 3255) 1.030 mg/dl 1.005-1.025 A POCT PH U (test code = 3254) 5 mg/dl 5-8 POCT U LEUK EST (test code = 3263) ++ Negative - Negative A POCT U NIT (test code = 3262) neg Negative - Negati ve POCT U PROT (test code = 3259) trace Negative - Negative A POCT U GLU (test code = 3256) normal Negative - Negati ve POCT U KETONE (test code = 3258) +/small Negative - Negative POCT U UROBILI (test code = 3260) normal 0.2-1 POCT U BILI (test code = 3261) ++ Negative - Negative A POCT U BLD (test code = 3257) about 50 Negative - Negati ve POCT U COLOR (test code = 3266) dark yellow POCT U APPEAR (test code = 3267) hazy Lab Interpretation (test cod e = 71709-1) Abnormal [facility] METABOLIC PANEL (NA, K, CL, CO2, GLUCOSE, BUN, CREATININE, CA)2022-10-28 02:30:31* Test Item Value Reference Range Interpretation Comme nts NA (test code = 3607077032) 135 mmol/L 135-145 K (test code = 1663105178) 4.2 mmol/L 3.5-5.0 CL (test code = 0200297273) 98 mmol/L 98-108 CO2 TOTAL (test code = 4932380373) 23 mmol/L 23-31 AGAP (test code = 0058198082) 14 2-16 BUN (test code = 2259400433) 12 mg/dL 7-23 GLUCOSE (test code = 8285471717) 101 mg/dL 70-110 CREATININE (test code = 3411075300) 0.89 mg/dL 0.60-1.25 CALCIUM (test code = 4371108367) 8.7 mg/dL 8.6-10.6 eGFR (test code = 9884523336) 89.1 mL/min/1.73m2 ILEANA (test code = ILEANA) Association of Glomerular Filtration Rate (GFR) and Staging of Kidney Disease* + + +- +| GFR (mL/min/1.73 m2) ?| With Kidney Damage ?| ?Without Kidney Damage+ ------+ ----+ ------+| ?>90 ?| ?Stage one ?| ? Normal ?+ -+ + -+| ?60-89 ?| ?Stage two ?| ? Decreased GFR ? + + +- +| ?30-59 ?| ?Stage three ?| ? Stage three ? + + +- +| ?15-29 ?| ?Stage four ? | ? Stage four ?+ -+ + -+| ?<15 (or dialysis) ? ?| ?Stage five ? | ? Stage five ?+ -+ + -+ *Each stage assumes the associated GFR level has been in effect for at least three months. ?Stages 1 to 5, with or without kidney disease, indicate chronic kidney disease. Notes: Determination of stages one and two (with eGFR >59mL/min/1.73 m2) requires estimation of kidney damage for at least three months as defined by structural or functional abnormalities of the kidney, manifested by either:Pathological abnormalities or Markers of kidney damage (including abnormalities in the composition of the blood or urine or abnormalities in imaging tests). [facility] WITH [id number] 02:10:53* Test Item Value Reference Range Interpretation Comme nts WBC (test code = 6690-2) 13.73 See_Comment H [Automated messa ge] The system which generated this result transmitted reference range: 4.20 - 10.70 10*3/?L. The reference range was not used to interpret this result as normal/abnormal. RBC (test code = 789-8) 4.54 See_Comment [Automated messa ge] The system which generated this result transmitted reference range: 4.26 - 5.52 10*6/?L. The reference range was not used to interpret this result as normal/abnormal. HGB (test code = 718-7) 13.3 g/dL 12.2-16.4 HCT (test code = 4544-3) 42.1 % 38.4-49.3 MCV (test code = 787-2) 92.7 fL 81.7-95.6 MCH (test code = 785-6) 29.3 pg 26.1-32.7 MCHC (test code = 786-4) 31.6 g/dL 31.2-35.0 RDW-SD (test code = 15698-6) 44.4 fL 38.5-51.6 RDW-CV (test code = 788-0) 13.1 % 12.1-15.4 PLT (test code = 777-3) 298 See_Comment [Automated messa ge] The system which generated this result transmitted reference range: 150 - 328 10*3/?L. The reference range was not used to interpret this result as normal/abnormal. MPV (test code = 08178-7) 10.6 fL 9.8-13.0 NRBC/100 WBC (test code = 2690374009) 0.0 See_Comment [Automated [employer] ssage] The system which generated this result transmitted reference range: 0.0 - 10.0 /100 WBCs. The reference range was not used to interpret this result as normal/abnormal. NRBC x10^3 (test code = 7559178360) See_Comment [Automated messa ge] The system which generated this result transmitted reference range: 10*3/?L. The reference range was not used to interpret this result as normal/abnormal. GRAN MAT (NEUT) % (test code = 770-8) 70.9 % IMM GRAN % (test code = 2582115990) 0.60 % LYMPH % (test code = 736-9) 13.1 % MONO % (test code = 5905-5) 12.6 % EOS % (test code = 713-8) 2.4 % BASO % (test code = 706-2) 0.4 % GRAN MAT x10^3(ANC) (test code = 2525714235) 9.73 10*3/uL 1.99-6.95 H IMM GRAN x10^3 (test code = 2789705387) 0.08 10*3/uL 0.00-0.06 H LYMPH x10^3 (test code = 731-0) 1.80 10*3/uL 1.09-3.23 MONO x10^3 (test code = 742-7) 1.73 10*3/uL 0.36-1.02 H EOS x10^3 (test code = 711-2) 0.33 10*3/uL 0.06-0.53 BASO x10^3 (test code = 704-7) 0.06 10*3/uL 0.01-0.09 Lab Interpretation (test code = 56144-9) Abnormal [facility]"
[2024-07-12 21:52] LABS: Sqamous Epithelial None Seen /HPF (None Seen); Urine Bacteria <20 /HPF (<20); Urine Bilirubin NEGATIVE (Negative); Urine Blood 1+ (Negative); Urine Clarity Extremely Turbid (Clear); Urine Color Light-Yellow (Yellow); Urine Crystals Unidentified Few /HPF (None Seen); Urine Culture Reflex Order REFLEXED; Urine Glucose NEGATIVE (Negative); Urine Ketones NEGATIVE (Negative); Urine Micro Reflex YN NO BILL MICROSCOPIC; Urine Nitrite NEGATIVE (Negative); Urine Protein NEGATIVE (Negative); Urine RBC 21-50 /HPF (None Seen); Urine Urobilinogen Normal (Normal); Urine WBC >50 /HPF (<5); Urine WBC Clump Few /HPF (None Seen); Urine Yeast (Budding) Few /HPF (None Seen); Urine pH 5.5 (5.0-7.0)
[2024-07-12] MEDS ORDERED: CEFTRIAXONE 1000 MG/VIAL ONE (22:39)
--- NOTE | 2024-07-12 22:39 | ER ---
Nurse's Notes [facility] Name: Rell Whitten Age: 58 yrs Sex: Male : 1965 Arrival Date: 07/12/2024 Time: 20:41 Bed 12 Private MD: Diagnosis: Leakage of urinary (indwelling) catheter;UTI/ Urinary tract infection, site not specified Presentation: 07/12 21:07 Chief complaint: Parent and/or Guardian states: HIS UROLOGY PUT THIS MAHAN CATHETER IN, ha1 AND WE DO NOT LIKE IT, I AM CONCERN THAT HE MIGHT GET A UTI AND IT GETS WET WHENEVER HE SHOWERS. 21:07 Coronavirus screen: Vaccine status: Patient reports being unvaccinated. Ebola Screen: ha1 No symptoms or risks identified at this time. Initial Sepsis Screen: Does the patient meet any 2 criteria? No. Patient's initial sepsis screen is negative. Does the patient have a suspected source of infection? No. Patient's initial sepsis screen is negative. Risk Assessment: Do you want to hurt yourself or someone else? Patient reports no desire to harm self or others. Onset of symptoms was July 12, 2024. 21:07 Method Of Arrival: Wheelchair ha1 21:07 Acuity: TONY 4 ha1 Triage Assessment: 21:11 General: Appears comfortable, Behavior is calm, cooperative. Pain: Complains of pain in ha1 groin Pain does not radiate. Unable to use pain scale. FLACC scale score is 0 out of 10. Neuro: Level of Consciousness is awake, alert, Oriented to person. Cardiovascular: Capillary refill < 3 seconds Patient's skin is warm and dry. Respiratory: Airway is patent Respiratory effort is even, unlabored, Respiratory pattern is regular, symmetrical. Derm: Skin is pink, warm \T\ dry. Musculoskeletal: Circulation, motion, and sensation intact. Historical: - Allergies: 21:31 Ampicillin; ha1 - Immunization history:: Adult Immunizations up to date. - Infectious Disease History:: Denies. - Social history:: Smoking status: Patient denies any tobacco usage or history of. Screenin:07 [facility] ED Fall Risk Assessment (Adult) History of falling in the last 3 months, ha1 including since admission Yes- physiologic fall (2 pts) Confusion or Disorientation Yes (5 pts) Intoxicated or Sedated No (0 pts) Impaired Gait Yes (1 pt) Mobility Assist Device Used Yes (1 pt) Altered Elimination No (0 pt) Score/Fall Risk Level 3 or more points = High Risk Oriented to surroundings, Maintained a safe environment, Educated pt \T\ family on fall prevention, incl call for assistance when getting out of bed, Hourly rounding (assess needs \T\ fall precautionary measures) done. Abuse screen: Denies threats or abuse. Denies injuries from another. Nutritional screening: No deficits noted. Tuberculosis screening: No symptoms or risk factors identified. Assessment: 21:15 Reassessment: Patient and/or family updated on plan of care and expected duration. Pain br2 level reassessed. Patient is alert, oriented x 3, equal unlabored respirations, skin warm/dry/pink. Reassessment: PT'S MOTHER WANTS MAHAN CHANGED OUT. SHE STATES IT WAS PUT IN SATURDAY AT UROLOGIST OFFICE BUT HAS BEEN LEAKING. General: Appears in no apparent distress. comfortable, Behavior is calm, cooperative. : Reports pain with urination, LEAKING OUT OF MAHAN. 22:30 Reassessment: Patient and/or family updated on plan of care and expected duration. Pain br2 level reassessed. Patient is alert, oriented x 3, equal unlabored respirations, skin warm/dry/pink. Patient states feeling better. Vital Signs: 21:07 BP 131 / 84; Pulse 66; Resp 20 S; Temp 98.1(T); Pulse Ox 97% ; Weight 95.25 kg; ha1 22:30 BP 120 / 80; Pulse 60; Resp 18 S; Pulse Ox 99% on R/A; br2 23:11 BP 127 / 85; Pulse 67; Resp 18 S; Pulse Ox 99% on R/A; br2 ED Course: 20:47 Patient arrived in ED. gm2 20:55 Elvis Ortiz PA is PHCP. cp 20:55 Will Cook MD is Attending Physician. cp 21:11 Patient has correct armband on for positive identification. Bed in low position. Call ha1 light in reach. Side rails up X 1. 21:13 Sarah Kidd, SHERRY is Primary Nurse. br2 21:31 Triage completed. ha1 21:56 Mahan cath inserted, using sterile technique, 16 Fr., returned haley urine. Patient br2 tolerated well. Mahan cath removed intact, balloon deflated, REMOVED MAHAN CATHETER AND REPLACED WITH A NEW ONE. 23:00 No provider procedures requiring assistance completed. Patient did not have IV access br2 during this emergency room visit. Administered Medications: 22:44 Drug: Rocephin (cefTRIAXone) IM 1 grams IM once Route: IM; Site: left gluteus; br2 23:00 Follow up: Response: No adverse reaction br2 Medication: 23:00 VIS not applicable for this client. br2 Outcome: 22:38 Discharge ordered by . cp 23:00 Discharged to home via wheelchair, br2 23:00 Condition: improved 23:00 [address]charge instructions given to road cleaner, Instructed on discharge instructions, follow up and referral plans. medication usage, Demonstrated understanding of instructions, follow-up care, medications, Prescriptions given X 1, 23:13 Patient left the ED. br2 Signatures: Elvis Ortiz PA PA cp Ayala, Heidy, RN RN ha1 Kiara Lopez gm2 Sarah Kidd RN RN br2
--- NOTE | 2024-07-12 22:39 | EDPHYS ---
Physician Documentation [facility] Name: Rell Whitten Age: 58 yrs Sex: Male : 1965 Arrival Date: 07/12/2024 Time: 20:41 Bed 12 Private MD: ED Physician Will Cook HPI: 07/12 21:30 This 58 yrs old Male presents to ER via Wheelchair with complaints of Needs Urinary cp Catheter Replacement. 21:30 The patient presents with a Peter catheter problem, is leaking urine, urinary symptoms, cp dysuria. 21:30 Onset: The symptoms/episode began/occurred today. Associated signs and symptoms: cp Pertinent negatives: abdominal pain, fever, vomiting. Severity of symptoms: in the emergency department the symptoms are unchanged, despite home interventions. Historical: - Allergies: 21:31 Ampicillin; ha1 - Immunization history:: Adult Immunizations up to date. - Infectious Disease History:: Denies. - Social history:: Smoking status: Patient denies any tobacco usage or history of. ROS: 21:35 : Positive for burning with urination, cp 21:35 Constitutional: Negative for fever, cp 21:35 Cardiovascular: Negative for chest pain, 21:35 Abdomen/GI: Negative for abdominal pain, vomiting, diarrhea, 21:35 Neuro: Negative for altered mental status, Exam: 21:40 Constitutional: The patient appears in no acute distress, alert, awake, non-toxic, well cp developed, well nourished, 21:40 Head/Face: Normocephalic, atraumatic. cp 21:40 Eyes: Periorbital structures: appear normal, Conjunctiva: normal, no exudate, no injection, Sclera: no appreciated abnormality, Lids and lashes: appear normal, bilaterally, 21:40 ENT: External ear(s): are unremarkable, Nose: is normal, Mouth: Lips: moist, Oral mucosa: moist, Posterior pharynx: Airway: no evidence of obstruction, patent, 21:40 Chest/axilla: Inspection: normal, 21:40 Cardiovascular: Rate: normal, 21:40 Respiratory: the patient does not display signs of respiratory distress, Respirations: normal, no use of accessory muscles, no retractions, labored breathing, is not present, Breath sounds: are clear throughout, no decreased breath sounds, no stridor, no wheezing, 21:40 Abdomen/GI: Inspection: abdomen appears normal, Palpation: abdomen is soft and non-tender, in all quadrants, Vital Signs: 21:07 BP 131 / 84; Pulse 66; Resp 20 S; Temp 98.1(T); Pulse Ox 97% ; Weight 95.25 kg; ha1 22:30 BP 120 / 80; Pulse 60; Resp 18 S; Pulse Ox 99% on R/A; br2 23:11 BP 127 / 85; Pulse 67; Resp 18 S; Pulse Ox 99% on R/A; br2 MDM: 21:13 Medical Screening Exam initiated 21:45 Differential diagnosis: UTI, urinary retention, Peter catheter problem, prostatitis, cp urethritis. 22:37 Data reviewed: vital signs, nurses notes, lab test result(s), and as a result, I will cp discharge patient. 22:37 I considered the following discharge prescriptions or medication management in the emergency department Medications were administered in the Emergency Department. See MAR. Historians other than the Patient: Parent: mother provides hpi. Counseling: I had a detailed discussion with the patient and/or guardian regarding the historical points, exam findings, and any diagnostic results supporting the discharge/admit diagnosis, lab results, the need for outpatient follow up, a urologist, to return to the emergency department if symptoms worsen or persist or if there are any questions or concerns that arise at home. Response to treatment: the patient's symptoms have mildly improved after treatment, and as a result, I will discharge patient. 07/12 21:27 Order name: Urinalysis W/Microscopic; Complete Time: 22:22 07/12 22:22 Interpretation: Reviewed. 07/12 21:56 Order name: Urine Culture [facility] 07/12 21:27 Order name: Brittani; Complete Time: 21:42 Administered Medications: 22:44 Drug: Rocephin (cefTRIAXone) IM 1 grams IM once Route: IM; Site: left gluteus; br2 23:00 Follow up: Response: No adverse reaction br2 Disposition: 07/13 01:52 Co-signature as Attending Physician, Will Cook MD I reviewed the patient's care rt provided by the Advanced Practice Provider and agree with the diagnosis and treatment plan. 16:24 Chart complete. Disposition Summary: 07/12/24 22:38 Discharge Ordered Notes: Location: Home cp Problem: new cp Symptoms: have improved cp Condition: Stable cp Diagnosis - Leakage of urinary (indwelling) catheter cp - UTI/ Urinary tract infection, site not specified cp Followup: cp - With: Private Physician - When: 2 - 3 days - Reason: Worsening of condition Discharge Instructions: - Discharge Summary Sheet cp - Indwelling Urinary Catheter Care, Adult cp - Urinary Tract Infection, Adult cp Forms: - Medication Reconciliation Form cp - Antibiotic Education cp - Prescription Opioid Use cp - Patient Portal Instructions cp - Leadership Thank You Letter cp Prescriptions: - cefpodoxime 200 mg Oral tablet - take 1 tablet ORAL route every 12 hours for 7 days with food; 14 tablet; cp Refills: 0, Product Selection Permitted Signatures: Dispatcher [employer] EDMS Elvis Ortiz PA PA cp Ayala, Heidy, SHERRY RN ha1 Will Cook MD MD rt Sarah Kidd RN RN br2
[2024-07-12] MEDS ORDERED: LIDOCAINE 1% MPF 5 ML VIAL ONE (22:40)
[2024-07-12 23:18] VITALS: TEMP 98.1
[2024-07-12 23:19] VITALS: O2SAT 99
[2024-07-12 23:20] VITALS: BP 127/85
== END 2024-07-12 23:13 | disposition home or self-care (01) ==
LOC: ER 20:41
DX: T83.038A Leakage of other urinary catheter, initial encounter (principal); N39.0 Urinary tract infection, site not specified
CPT/HCPCS: 87088; 81001; 87086; 87077; 87186; 51702; 96372; 99284; J2003; J0696